=== PATIENT | female | born 1995 ===

== ENCOUNTER 2020-06-22 06:50 | Inpatient (IN) | payer MEDICAID ==
[2020-06-22] VITALS (17 sets, daily range): BP systolic 93–125; BP diastolic 50–79
[~2020-06-22] VITALS: Ht 162.6 cm; Wt 54.4 kg
[2020-06-22] MEDS ORDERED: LIDOcaine 2% 10ml TOPICAL JELLY (Urojet) TP ONE (07:15)
[2020-06-22] MEDS ORDERED: acetaminophen 325mg tablet PO PRN ×2 (07:15)
[2020-06-22] MEDS ORDERED: ipratropium/albuterol 3ml nebule NEB PRN (07:15)
[2020-06-22] MEDS: normal saline 1000ml 1,000 ML IV SCH ×2 (07:15→19:16)
[2020-06-22] MEDS ORDERED: midazolam 100mg in NS 100ml 100 ML IV PRN (07:15)
[2020-06-22] MEDS ORDERED: midazolam 2 mg/2 ml injection IV ONE (07:15)
[2020-06-22] MEDS ORDERED: fentaNYL/PF 50MCG/1 ML 2ML syringe IV PRN (07:15)
[2020-06-22] MEDS ORDERED: morphine 4 MG/ML inj SYRINge IV PRN (07:15)
[2020-06-22] MEDS: docusate sod 100mg capsule PO SCH ×2 (08:00→19:40)
[2020-06-22 08:03] LABS: CLARITY,URINE CLOUDY (Clear); COLOR,URINE YELLOW (Yellow); GLUCOSE, URINE NEGATIVE (Neg); KETONES,URINE NEGATIVE (Neg); LEUKOCYTE ESTERASE ,URINE LARGE (Neg); NITRITES, URINE NEGATIVE (Neg); OCCULT BLOOD,URINE MODERATE (Neg); PH,URINE 6.5 (4.8-8.0); PROTEIN,URINE 30 mg/dl (Neg); UROBILINOGEN,URINE 0.2 E.U/dL (0.2-1.0)
[2020-06-22 08:07] LABS: UA COLLECTION TYPE FOLEY CATH
[2020-06-22 08:09] LABS: BACTERIA,URINE 4+ /HPF (Neg); CAL OXALATE CRYSTALS 1+ /HPF (NEGATIVE); MUCUS STRANDS MODERATE /LPF (Neg); RENAL CELLS, URINE FEW /HPF; SQUAMOUS EPITHELIAL CELL,UR MODERATE /LPF (FEW); TRANSITIONAL EPI CELLS,URINE FEW /HPF; URIC ACID CRYSTALS 1+ /HPF (NEGATIVE)
[2020-06-22 08:10] LABS: YEAST FEW /HPF (NEGATIVE)
[2020-06-22 09:20] LABS: ABG BASE EXCESS -4.6 mmol/L (-2.0-2.0); ABG HCO3 19.9 mmol/L (22.0-26.0); ABG OXYGEN SATURATION 95.9 % (94-97); FCOHb 0.3 % (0.0-3.9); FMetHb 0.2 % (0.0-1.5); FO2Hb 95.4 % (94-97); PATIENT TEMPERATURE 35.8; RESPIRATORY RATE 14 b/min; TIDAL VOLUME 400 mL; TOTAL HEMOGLOBIN 9.7 G/dl (12.0-16.0)
[2020-06-22] MEDS ORDERED: heparin 1,000 units/ml 10ml inj HE ONE ×2 (09:40)
[2020-06-22] MEDS: FENTANYL-0.9 % NACL/PF 100 ML IV PRN ×2 (09:49→17:49)
[2020-06-22 10:16] LABS: BASOPHILS % (AUTO) 0.4 % (0-1); EOSINOPHILS % (AUTO) 0.3 % (0-6); HEMATOCRIT 23.6 % (35.0-45.0); HEMOGLOBIN 7.9 g/dl (12.0-16.0); LYMPHOCYTES # (AUTO) 1.4 X10'3 (1.1-4.8); MEAN CORPUSCULAR HEMOGLOBIN 29.7 PG (27.0-31.0); MEAN CORPUSCULAR HGB CONC 33.5 g/dL (33.0-36.5); MEAN CORPUSCULAR VOLUME 88.5 FL (78-98); MEAN PLATELET VOLUME 8.3 FL (7.4-10.4); MONOCYTES # (AUTO) 0.1 X10'3 (0-0.9); MONOCYTES % (AUTO) 1.2 % (2-12); NEUTROPHILS # (AUTO) 8.9 X10'3 (1.8-7.7); NEUTROPHILS % (AUTO) 85.1 % (42-75); PLATELET COUNT 236 X10'3 (140-440); RED BLOOD COUNT 2.66 X10'6 (4.20-5.60); RED CELL DISTRIBUTION WIDTH 16.4 % (11.5-14.5); WHITE BLOOD COUNT 10.5 X10'3 (4.5-11.0)
[2020-06-22 10:29] LABS: ALANINE AMINOTRANSFERASE 39 U/L (12-78); ALBUMIN 1.7 G/DL (3.4-5.0); ALBUMIN/GLOBULIN RATIO 0.4 (1.1-1.5); ALKALINE PHOSPHATASE 78 IU/L (46-116); ANION GAP 13 (8-16); ASPARTATE AMINO TRANSFERASE 33 U/L (10-37); BILIRUBIN,TOTAL 0.7 MG/DL (0.1-1.0); BLOOD UREA NITROGEN 72 MG/DL (7-18); BUN/CREATININE RATIO 44.2 (6.6-38.0); CALCIUM 8.1 MG/DL (8.5-10.1); CHLORIDE 106 MMOL/L (99-107); CREATININE 1.63 MG/DL (0.40-0.90); GLUCOSE 100 MG/DL (70-104); MAGNESIUM 2.1 MG/DL (1.5-2.4); PHOSPHORUS 4.9 MG/DL (2.3-4.5); POTASSIUM 3.5 MMOL/L (3.5-5.1); SODIUM 140 MMOL/L (135-145); TOTAL CARBON DIOXIDE 20.7 MMOL/L (24-32); TOTAL PROTEIN 6.4 G/DL (6.4-8.2); eGFR 38 ML/MIN
[2020-06-22 10:38] LABS: ANISOCYTOSIS 1+; PLATELET ESTIMATE NORMAL; TOTAL CELLS COUNTED 100
[2020-06-22] MEDS: famotidine/PF 10 mg/ml inj IV SCH ×2 (10:48→20:38)
[2020-06-22] MEDS: heparin, porcine 5000 units/ml vial SQ SCH ×2 (10:50→20:39)
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
[2020-06-22] MEDS: NORepinephrine 8mg/ 250ml NS 250 ML IV PRN ×2 (11:33→20:38)
[2020-06-22] MEDS: ipratropium/albuterol 3ml nebule NEB SCH ×4 (11:40→22:44)
[2020-06-22 11:50] LABS: TOTAL PROTEIN,URINE RANDOM 242.7 MG/DL
[2020-06-22 12:09] LABS: CLARITY,URINE CLOUDY (Clear); COLOR,URINE YELLOW (Yellow); GLUCOSE, URINE NEGATIVE (Neg); KETONES,URINE NEGATIVE (Neg); LEUKOCYTE ESTERASE ,URINE MODERATE (Neg); NITRITES, URINE NEGATIVE (Neg); OCCULT BLOOD,URINE LARGE (Neg); PH,URINE 6.5 (4.8-8.0); PROTEIN,URINE 100 mg/dl (Neg)
[2020-06-22 12:16] LABS: UA COLLECTION TYPE FOLEY CATH
[2020-06-22 12:18] LABS: MUCUS STRANDS FEW /LPF (Neg); SQUAMOUS EPITHELIAL CELL,UR NONE SEEN /LPF (FEW)
[2020-06-22 12:19] LABS: BACTERIA,URINE 4+ /HPF (Neg); RBC,URINE 50-100 /HPF (0-2)
[2020-06-22 12:48] LABS: UA EOSINOPHILS RARE EOS /HPF
[2020-06-22] MEDS ORDERED: MULT-687 PO (13:38)
[2020-06-22] MEDS ORDERED: MIDO5TAB4 PO (13:38)
[2020-06-22] MEDS ORDERED: THIA50TA10 PO (13:38)
[2020-06-22] MEDS ORDERED: GABA-530 PO (13:41)
[2020-06-22] MEDS ORDERED: MYC15CR TOP (13:41)
[2020-06-22] MEDS ORDERED: MELA1TAB28 PO (13:41)
[2020-06-22] MEDS ORDERED: FOLI0.4T14 PO (13:41)
[2020-06-22] MEDS ORDERED: FAMO20TA8 PO (13:42)
[2020-06-22] MEDS ORDERED: BACL-11 PO (13:42)
[2020-06-22] MEDS ORDERED: CHLO118M PO (13:43)
[2020-06-22] MEDS ORDERED: ALBU18HF2 IH (13:46)
[2020-06-22] MEDS ORDERED: ATRIN IH (13:46)
[2020-06-22] MEDS: sennosides/docusate sodium tablet PO SCH (19:40)
[2020-06-23] VITALS (25 sets, daily range): BP systolic 97–122; BP diastolic 51–80
[2020-06-23 03:52] LABS: HEMOGLOBIN 7.6 g/dl (12.0-16.0)
[2020-06-23 03:54] LABS: MEAN CORPUSCULAR HEMOGLOBIN 28.9 PG (27.0-31.0); MEAN CORPUSCULAR VOLUME 87.7 FL (78-98); PLATELET COUNT 178 X10'3 (140-440); RED BLOOD COUNT 2.63 X10'6 (4.20-5.60); RED CELL DISTRIBUTION WIDTH 16.6 % (11.5-14.5); WHITE BLOOD COUNT 9.5 X10'3 (4.5-11.0)
[2020-06-23] MEDS: ipratropium/albuterol 3ml nebule NEB SCH ×6 (03:54→22:37)
--- NOTE | 2020-06-23 04:00 | NUR ---
CLEMENTE Note -called July REY Kevin with critical K of 2.5. Orders received
[2020-06-23 04:05] LABS: ALANINE AMINOTRANSFERASE 37 U/L (12-78); ALBUMIN 1.7 G/DL (3.4-5.0); ALBUMIN/GLOBULIN RATIO 0.4 (1.1-1.5); ALKALINE PHOSPHATASE 81 IU/L (46-116); ANION GAP 13 (8-16); ASPARTATE AMINO TRANSFERASE 29 U/L (10-37); BILIRUBIN,TOTAL 0.5 MG/DL (0.1-1.0); BLOOD UREA NITROGEN 48 MG/DL (7-18); BUN/CREATININE RATIO 70.6 (6.6-38.0); CALCIUM 8.4 MG/DL (8.5-10.1); CHLORIDE 112 MMOL/L (99-107); CREATININE 0.68 MG/DL (0.40-0.90); GLUCOSE 97 MG/DL (70-104); PHOSPHORUS 3.4 MG/DL (2.3-4.5); SODIUM 148 MMOL/L (135-145); TOTAL PROTEIN 6.2 G/DL (6.4-8.2); eGFR > 90 ML/MIN
[2020-06-23 04:13] LABS: POTASSIUM 2.5 MMOL/L (3.5-5.1)
[2020-06-23] MEDS ORDERED: potassium Cl 20 mEq/100mL bag IV ONE (04:35)
[2020-06-23 04:41] LABS: ABG BASE EXCESS -3.5 mmol/L (-2.0-2.0); ABG HCO3 21.4 mmol/L (22.0-26.0); ABG OXYGEN SATURATION 98.1 % (94-97); ABG PCO2 (T) 35.1 mmHg (32.0-45.0); ABG PO2 (T) 106.1 mmHg (75.0-100.0); FCOHb 0.3 % (0.0-3.9); FMetHb 0.3 % (0.0-1.5); FO2Hb 97.5 % (94-97); PATIENT TEMPERATURE 35.4; PEEP 5 cm H2O; RESPIRATORY RATE 14 b/min; TIDAL VOLUME 400 mL; TOTAL HEMOGLOBIN 8.4 G/dl (12.0-16.0)
--- NOTE | 2020-06-23 06:30 | NUR ---
Patient in room ICU 2043. I have received report from [facility] and had the opportunity to ask questions and assume patient care.
[2020-06-23 07:27] LABS: TOTAL CELLS COUNTED 100
[2020-06-23 07:28] LABS: ANISOCYTOSIS 1+; PLATELET ESTIMATE NORMAL; POLYCHROMASIA 1+; TOXIC GRANULATION 1+
[2020-06-23] MEDS: docusate sod 100mg capsule PO SCH ×2 (08:00→20:00)
[2020-06-23] MEDS: famotidine/PF 10 mg/ml inj IV SCH ×2 (08:29→20:53)
[2020-06-23] MEDS: heparin, porcine 5000 units/ml vial SQ SCH ×2 (08:31→20:52)
[2020-06-23] MEDS: mineral oil/petrolatum ophthal oint EACHEYE SCH ×3 (08:33→20:54)
[2020-06-23] MEDS: normal saline 1000ml 1,000 ML IV SCH (08:43)
[2020-06-23] MEDS ORDERED: potassium CL 10mEq/100ml bag 100 ML IV PRN (11:00)
[2020-06-23] MEDS: K, MAG and/or Phos replacement - Verify level? MC SCH (11:33)
[2020-06-23] MEDS: potassium Cl 20mEq/100mL bag 100 ML IV PRN ×3 (11:33→13:56)
[2020-06-23] MEDS: NORepinephrine 8mg/ 250ml NS 250 ML IV PRN (15:08)
--- NOTE | 2020-06-23 19:00 | NUR ---
REVIEWED WITH EMANUEL GONSALES NP RE: BP/LEVOPHED, ALBUMIN LEVEL IS 1.7 AND H/H 7.6/23. NO NEW ORDERS REGARDING THESE . QUESTIONED WHETHER TO GIVE COLACE AND SENNA THEY HAVE BEEN HELD PREVIOUSLY. PER EMANUEL, BOOK SALESMAN - OK TO GIVE. PATIENT HAS HAS BOWEL MOVEMENTS THE PREVIOUS SHIFT ALSO PER REPORT. REMINDED REY CASTELLANOS PATIENT IS ON NO ABX AT THIS TIME - REVIEWED LATEST MICRO RESULTS WITH HER. NO NEW ORDERS. FROM REPORT AT SHIFT CHANGE, CLEMENTE MARTINEZ REPORTED TO ME TO DC GERALD CATHETER HOWEVER THERE IS NO ORDER. DR. RODRIGUEZ MENTIONED IN HIS PROGRESS NOTES THAT HE WOULD DC THIS CATHETER BUT AGAIN - THERE IS NO ORDER. CLARIFIED WITH REY CASTELLANOS WHETHER THIS LINE IS TO BE DC'D. PER REY CASTELLANOS WE WILL WAIT TO CLARIFY ON ROUNDS IN AM. SHE WILL ALSO CLARIFY ABX STATUS IN AM WELL.
--- NOTE | 2020-06-23 19:30 | NUR ---
UPON ASSESSMENT - PATIENTS ABDOMEN NOTED TO BE QUITE DISTENDED AND SLIGHTLY FIRM. PEG TUBE WAS CLAMPED FOR MEDS GIVEN PREVIOUS SHIFT. PEG SITE LEAKING MODERATE AMOUNT BROWN BILIOUS IN BED. NEW TUBING AND NEW CANISTER PLACED. OLD CANISTER HAD MARKING THAT SHOWED AT 350 ML. PRIOR TO TOSSING CANISTER - 100 MORE ML BROWN BILIOUS WAS IN CANISTER. NOTED THAT DAYSHIFT DID NOT TAKE CREDIT FOR THIS 100 ML SO I DID ON MY SHIFT PRIOR TO CHANGING TO A NEW CANISTER. # 22 PIV TO LEFT WRIST D/C'D. PUFFY AND DIFFICULT TO FLUSH. NEURO - NOTED LEFT PUPIL 1 MM AND RIGHT PUPIL 1.5 MM. BOTH REACTIVE TO LIGHT. PATIENT OPENS EYES TO NAME BUT DOES NOT MAKE EYE CONTACT. DOES NOT STICK TONGUE OUT ON COMMAND. DOES NOT TRACK. VERSED GTT 1.5 MG/HR, FENTANYL 75 UG/HR. PATIENT IS IN NO DISTRESS AND NO S/SX PAIN. COURSE BREATH SOUNDS B/L, SXN SM [place]/WHITE. VSS, AFEBRILE, U/O MARGINAL VICKIE. RIGHT FEMORAL GERALD - CDI - DRESSING NOT DATED, LEFT FEMORAL A-LINE. DRESSING CDI, RIGHT SC QLC - CDI, Addendum: 06/24/20 at 0108 by Bob Obrien RN AFTER DISCUSSING WITH JULY ASH CONVEYOR OPERATOR REGARDING THE DISTENDED ABDOMEN AND LEAKING PEG SITE - I DID NOT GIVE THE PT SENNA OR COLACE.
[2020-06-23] MEDS: sennosides/docusate sodium tablet PO SCH ×2 (20:52→20:55)
--- NOTE | 2020-06-23 21:00 | NUR ---
FULL BED AND BATH. LOTION APPLIES ALL OVER BODY. WITH THE HELP OF 2 RN'S, (FLUTE POLISHER TO TURN, RESOURCE RN TO STABILIZE NECK WHILE PHILI COLLAR WAS REMOVED) I ASSESSED TOTAL NECK SKIN/BACK OF HEAD. PATIENT HAD A PACKED WOUND AT C-4 SITE ON POSTERIOR NECK - DRESSING WAS DATED 06/20. I REMOVED THE PACKING AND APPLIED NEW NS W->D WITH DSD COVERING. WOUND WAS PROBABLY 1/4 IN OR SO DEEP. I DID NOT HAVE A MEASURING DEVICE AT THE TIME. THIS WOUND WAS NOT REPORTED IN REPORT SO I WAS UNPREPARED WHILE REMOVING THE COLLAR. A SCAR TO FRONT RIGHT NECK NOTED BUT NOT OPEN. OCCIPITAL AREA WITH AREA OF SHAVED HAIR WITH A SMALL SCAR AT THE CENTER. IT WAS NOT OPEN. TOTAL NECK CLEANED FRONT AND BACK - COLLAR CLEANED AND REPLACED. DTI TO LEFT FLANK - OFFLY SHAPED - OPTIFOAM APPLIED. DIME SIZED SKIN TEAR TO LEFT LOWER BUTTOCK FOLD (INTO THE THIGH), OPTIFOAM APPLIED. OPTIFOAM ON SACRUM - REMOVED TO ASSESS - TINY OPEN AREA AT DISTAL TAILBONE. SMALL AREA MAY BE DTI TO RIGHT OF SACRUM. PATIENT IS TURNED LEFT SIDE OR RIGHT SIDE. NEVER ON COCCYX. I WILL REQUEST WOUND CARE TO ASSESS FOR PERHAPS A SPECIALTY BED - CURRENTLY ON AIR EQUALIZING MATTRESS. LOTION APPLIED TO ENTIRE BODY.. HEELS AND ARMS ON PILLOWS. PATIENT IS ALWAYS CHECKED FOR ANY PRESSURE ISSUES RELATED TO MONITOR WIRES/GALDAMEZ/SCD/VENT IV LINES ETC. EXTREMITIES ALWAYS MADE SURE TO BE POSITIONED PROPERLY ESPECIALLY RECHECKING AFTER TURNS PATIENT IS A NEW QUADRIPLEGIC AND UNABLE TO SENSE PRESSURE/POSITIONING ISSUES.
[2020-06-24] VITALS (24 sets, daily range): BP systolic 95–116; BP diastolic 51–66
[2020-06-24] MEDS: normal saline 1000ml 1,000 ML IV SCH ×2 (00:27→12:40)
--- NOTE | 2020-06-24 02:14 | NUR ---
I HAVE SENT A REQUEST TO WOUND CARE TO PLEASE EVALUATE THIS PATIENT FOR A SPECIALTY BED AND ALSO TO ASSESS THE PACKED WOUND TO POSTERIOR NECK THERE ARE NO CURRENT ORDERS FOR THIS DRESSING CHANGE. STATED EARLIER - I PLACED NEW NS W->D UNTIL FURTHER INSTRXN
[2020-06-24] MEDS: mineral oil/petrolatum ophthal oint EACHEYE SCH ×4 (02:20→19:33)
[2020-06-24] MEDS: ipratropium/albuterol 3ml nebule NEB SCH ×6 (02:46→22:58)
[2020-06-24 03:35] LABS: ALANINE AMINOTRANSFERASE 27 U/L (12-78); ALBUMIN 1.5 G/DL (3.4-5.0); ALBUMIN/GLOBULIN RATIO 0.3 (1.1-1.5); ALKALINE PHOSPHATASE 78 IU/L (46-116); ANION GAP 12 (8-16); ASPARTATE AMINO TRANSFERASE 18 U/L (10-37); BILIRUBIN,TOTAL 0.6 MG/DL (0.1-1.0); BLOOD UREA NITROGEN 33 MG/DL (7-18); BUN/CREATININE RATIO 73.3 (6.6-38.0); CALCIUM 8.8 MG/DL (8.5-10.1); CHLORIDE 118 MMOL/L (99-107); CREATININE 0.45 MG/DL (0.40-0.90); GLUCOSE 84 MG/DL (70-104); MAGNESIUM 1.8 MG/DL (1.5-2.4); PHOSPHORUS 2.4 MG/DL (2.3-4.5); POTASSIUM 3.5 MMOL/L (3.5-5.1); SODIUM 152 MMOL/L (135-145); TOTAL CARBON DIOXIDE 22.2 MMOL/L (24-32); TOTAL PROTEIN 5.8 G/DL (6.4-8.2); eGFR > 90 ML/MIN
[2020-06-24 03:35] LABS: ABG HCO3 20.4 mmol/L (22.0-26.0); ABG OXYGEN SATURATION 93.8 % (94-97); ABG PCO2 (T) 34.6 mmHg (32.0-45.0); ABG PO2 (T) 72.8 mmHg (75.0-100.0); FCOHb 0.2 % (0.0-3.9); FMetHb 0.1 % (0.0-1.5); FO2Hb 93.5 % (94-97); PATIENT TEMPERATURE 37.2; PEEP 5 cm H2O; RESPIRATORY RATE 14 b/min; TIDAL VOLUME 400 mL; TOTAL HEMOGLOBIN 8.7 G/dl (12.0-16.0)
[2020-06-24 03:43] LABS: BASOPHILS % (AUTO) 0.3 % (0-1); EOSINOPHILS # (AUTO) 0.2 X10'3 (0-0.9); EOSINOPHILS % (AUTO) 1.3 % (0-6); HEMATOCRIT 24.2 % (35.0-45.0); HEMOGLOBIN 7.9 g/dl (12.0-16.0); LYMPHOCYTES # (AUTO) 1.4 X10'3 (1.1-4.8); MEAN CORPUSCULAR HEMOGLOBIN 29.2 PG (27.0-31.0); MEAN CORPUSCULAR HGB CONC 32.6 g/dL (33.0-36.5); MEAN CORPUSCULAR VOLUME 89.5 FL (78-98); MEAN PLATELET VOLUME 8.8 FL (7.4-10.4); MONOCYTES # (AUTO) 0.2 X10'3 (0-0.9); MONOCYTES % (AUTO) 1.3 % (2-12); NEUTROPHILS # (AUTO) 12.2 X10'3 (1.8-7.7); NEUTROPHILS % (AUTO) 87.1 % (42-75); PLATELET COUNT 181 X10'3 (140-440)
--- NOTE | 2020-06-24 04:36 | NUR ---
ABDOMEN APPEARS MORE DISTENDED THAN BEGINNING OF SHIFT. PEG HAS PUT OUT 100 ML BILIOUS. NO FURTHER LEAKING FROM PEG SITE. CALL TO JULY SHAREPOINT ANALYST TO UPDATE. DEYANIRA ADDED TO AM CXR Addendum: 06/24/20 at 0440 by Bob Obrien RN WANTED TO ADD - 2330 DECREASED VERSED FROM 1.5 MG/HR TO 0.5 MG/HR. RT ASSESSMENT SHOWS INCREASED RR AND DECREASED TV. PATIENT CURRENTLY MOVES MOUTH BUT IS UNABLE TO OPEN EYES (HALF OPEN/HALF SHUT) NO COMMANDS NO EYES CONTACT. VERSED INCREASED TO 1.0 MG /HR
[2020-06-24 05:02] LABS: PLATELET ESTIMATE NORMAL; TOTAL CELLS COUNTED 100
[2020-06-24 05:03] LABS: ANISOCYTOSIS 1+
--- NOTE | 2020-06-24 06:00 | NUR ---
Patient in room ICU 2043. I have received report from Bob CORNEJO and had the opportunity to ask questions and assume patient care.
--- NOTE | 2020-06-24 06:30 | NUR ---
Patient in room ICU 2043. I have received report from Bob CORNEJO and had the opportunity to ask questions and assume patient care.
[2020-06-24] MEDS: docusate sod 100mg capsule PO SCH (08:00)
[2020-06-24] MEDS: K, MAG and/or Phos replacement - Verify level? MC SCH (08:00)
[2020-06-24] MEDS: heparin, porcine 5000 units/ml vial SQ SCH ×2 (08:48→19:34)
[2020-06-24] MEDS: famotidine/PF 10 mg/ml inj IV SCH ×2 (08:48→19:34)
[2020-06-24] MEDS ORDERED: pneumococcal 23-VAL P-sac vacc 25 mcg/0.5ml vial IMVAC ONE (09:45)
[2020-06-24] MEDS ORDERED: FLU VACC QS2020-21(6MOS UP)/PF 60 MCG/0.5 ML SYRINGE IMVAC ONE (09:45)
[2020-06-24] MEDS ORDERED: normal saline 1000ml 1,000 ML IV ONE (10:25)
--- NOTE | 2020-06-24 10:27 | NUR ---
rounds note Per Dr. Marshall d/c femoral raulito, start levaquin 750mg, start tube feed, give 1l bolus NS and wean levophed as tolerated
[2020-06-24] MEDS ORDERED: ipratropium 0.5 MG/2.5ML nebule NEB PRN (11:05)
[2020-06-24] MEDS ORDERED: ALBUTEROL INHALER 1 PUFF/90 MCG INHALER IH PRN (11:05)
--- NOTE | 2020-06-24 11:25 | NUR ---
TF/Roland Consults: PEG TF to start today per . Roland 8 w/ skin intact. LBM 06/23. EN recs below; will monitor for tolerance and adjustments as medically indicated. Recommendations: 1) Continuous PEG TF using Vital AF at 60 mL/hr goal. To provide; 1440ml volume, 1166ml free water, 1728 kcals, and 108g protein. 2) water flush 200ml Q4H 3) prealbumin q Wednesday/; daily weights 4) Routine Bowel care; consider opioid antagonist per MD 5) Once extubated and sepsis resolved, recommend continuous Jevity 1.2 with goal rate of 55 mL/hr with 85 mL water flush Q4H via G tube Addendum: 06/24/20 at [address] Amended: Links added.
[2020-06-24] MEDS ORDERED: albuterol 2.5 MG/3 ML nebule NEB PRN (11:30)
[2020-06-24] MEDS: levoFLOXACIN-Levaquin 750MG/D5 150 ML IV SCH (11:55)
[2020-06-24] MEDS: FENTANYL-0.9 % NACL/PF 100 ML IV PRN (11:56)
[2020-06-24] MEDS: gabapentin 100mg capsule PO SCH ×2 (12:40→21:49)
[2020-06-24] MEDS ORDERED: acetaminophen 325mg/10.15ml oral unit dose solution PEG PRN ×2 (12:44→12:45)
[2020-06-24] MEDS: baclofen 10mg tablet PEG SCH ×2 (13:00→21:47)
[2020-06-24] MEDS ORDERED: baclofen 10mg tablet PO SCH (13:00)
[2020-06-24 13:35] LABS: PREALBUMIN 6.9 MG/DL (19-36)
[2020-06-24] MEDS: NORepinephrine 8mg/ 250ml NS 250 ML IV PRN (13:50)
[2020-06-24] MEDS: midodrine 5mg tablet PEG SCH (16:48)
[2020-06-24] MEDS: chlorhexidine gluconate 15ml Cup****oral rinse MM SCH (16:48)
--- NOTE | 2020-06-24 17:13 | NUR ---
[facility] line information ref [id number] lot [id number] exp 2021-04-24
--- NOTE | 2020-06-24 18:11 | NUR ---
Problems reprioritized. Patient report given, questions answered & plan of care reviewed with Bob CORNEJO.
--- NOTE | 2020-06-24 19:00 | NUR ---
I SPOKE TO EMANUEL GONSALES NP ABOUT THE RIGHT SC CENTRAL LINE RT TO THE NEW -PICC. ASSUMING TO D/C R SC CENTRAL LINE SINCE NEW LINE IS PLACED HOWEVER THERE IS NO OFFICIAL ORDER TO D/C THIS CATHETER . PER JULY, LEAVE LINE IN PLACE UNTIL CLARIFIED IN AM
[2020-06-24] MEDS: NYSTATIN CREAM - 30GM TUBE TP SCH (19:34)
[2020-06-24] MEDS: docusate sodium 100mg/10ml UD cup PEG SCH (19:34)
[2020-06-24] MEDS ORDERED: famotidine 20mg tablet PO SCH (20:00)
[2020-06-24] MEDS: sennosides/docusate sodium tablet PEG SCH (21:48)
[2020-06-24] MEDS: Melatonin 3mg tablet PO SCH (21:48)
[2020-06-25] VITALS (24 sets, daily range): BP systolic 68–153; BP diastolic 36–90
[2020-06-25] MEDS: mineral oil/petrolatum ophthal oint EACHEYE SCH ×4 (01:51→20:40)
[2020-06-25] MEDS: normal saline 1000ml 1,000 ML IV SCH ×3 (01:51→16:08)
[2020-06-25] MEDS: midodrine 5mg tablet PEG SCH ×4 (01:54→23:28)
[2020-06-25] MEDS: chlorhexidine gluconate 15ml Cup****oral rinse MM SCH ×4 (01:54→23:28)
[2020-06-25 02:52] LABS: BASOPHILS % (AUTO) 0.1 % (0-1); EOSINOPHILS # (AUTO) 0.1 X10'3 (0-0.9); EOSINOPHILS % (AUTO) 0.8 % (0-6); HEMATOCRIT 23.4 % (35.0-45.0); HEMOGLOBIN 7.5 g/dl (12.0-16.0); LYMPHOCYTES # (AUTO) 1.8 X10'3 (1.1-4.8); LYMPHOCYTES % (AUTO) 14.7 % (21-51); MEAN CORPUSCULAR HEMOGLOBIN 28.7 PG (27.0-31.0); MEAN CORPUSCULAR HGB CONC 32.1 g/dL (33.0-36.5); MEAN CORPUSCULAR VOLUME 89.6 FL (78-98); MEAN PLATELET VOLUME 8.2 FL (7.4-10.4); MONOCYTES # (AUTO) 0.4 X10'3 (0-0.9); MONOCYTES % (AUTO) 2.8 % (2-12); NEUTROPHILS # (AUTO) 10.2 X10'3 (1.8-7.7); NEUTROPHILS % (AUTO) 81.6 % (42-75); PLATELET COUNT 173 X10'3 (140-440); RED BLOOD COUNT 2.61 X10'6 (4.20-5.60); RED CELL DISTRIBUTION WIDTH 16.9 % (11.5-14.5); WHITE BLOOD COUNT 12.5 X10'3 (4.5-11.0)
[2020-06-25] MEDS: ipratropium/albuterol 3ml nebule NEB SCH ×6 (02:54→22:35)
[2020-06-25 03:02] LABS: ALANINE AMINOTRANSFERASE 24 U/L (12-78); ALBUMIN 1.4 G/DL (3.4-5.0); ALBUMIN/GLOBULIN RATIO 0.3 (1.1-1.5); ALKALINE PHOSPHATASE 67 IU/L (46-116); ANION GAP 10 (8-16); ASPARTATE AMINO TRANSFERASE 12 U/L (10-37); BLOOD UREA NITROGEN 28 MG/DL (7-18); BUN/CREATININE RATIO 58.3 (6.6-38.0); CALCIUM 8.9 MG/DL (8.5-10.1); CHLORIDE 119 MMOL/L (99-107); CREATININE 0.48 MG/DL (0.40-0.90); GLUCOSE 92 MG/DL (70-104); MAGNESIUM 1.5 MG/DL (1.5-2.4); PHOSPHORUS 2.8 MG/DL (2.3-4.5); POTASSIUM 3.4 MMOL/L (3.5-5.1); SODIUM 149 MMOL/L (135-145); TOTAL CARBON DIOXIDE 20.1 MMOL/L (24-32); TOTAL PROTEIN 5.5 G/DL (6.4-8.2); eGFR > 90 ML/MIN
[2020-06-25 03:10] LABS: ABG BASE EXCESS -6.2 mmol/L (-2.0-2.0); ABG OXYGEN SATURATION 96.3 % (94-97); FCOHb 0.4 % (0.0-3.9); FMetHb 0.3 % (0.0-1.5); FO2Hb 95.6 % (94-97); PATIENT TEMPERATURE 38.2; PEEP 5 cm H2O; RESPIRATORY RATE 14 b/min; TIDAL VOLUME 400 mL; TOTAL HEMOGLOBIN 8.4 G/dl (12.0-16.0)
[2020-06-25 03:11] LABS: TOTAL CELLS COUNTED 100
[2020-06-25 03:12] LABS: ANISOCYTOSIS 1+; PLATELET ESTIMATE NORMAL
[2020-06-25 03:19] LABS: BILIRUBIN,TOTAL 0.9 MG/DL (0.1-1.0)
--- NOTE | 2020-06-25 03:20 | NUR ---
turned with full bed and bath. trach care completed with rt while rn held neck. then rn holds neck while i changed the posterior neck dressing. no complications cleaned guthrie brace and neck. occipital area unchanged - not open- scar like, replaced philli collar. new optifoam dressing to sacrum and left gluteal fold.
--- NOTE | 2020-06-25 06:00 | NUR ---
Patient in room ICU 2043. I have received report from Bob CORNEJO and had the opportunity to ask questions and assume patient care.
--- NOTE | 2020-06-25 07:09 | NUR ---
Patient in room ICU 2043. I have received report from Bob CORNEJO and had the opportunity to ask questions and assume patient care.
[2020-06-25] MEDS: docusate sodium 100mg/10ml UD cup PEG SCH ×2 (08:00→20:00)
[2020-06-25] MEDS: MULTIVIT-MIN/FERROUS GLUCONATE 9 MG/15 ML LIQUID PEG SCH (08:00)
[2020-06-25] MEDS: baclofen 10mg tablet PEG SCH ×3 (08:00→20:41)
[2020-06-25] MEDS: folic acid 1mg tablet PEG SCH (08:00)
[2020-06-25] MEDS: thiamine 100mg tablet PEG SCH (08:00)
[2020-06-25] MEDS: gabapentin 100mg capsule PO SCH ×3 (08:00→20:42)
[2020-06-25] MEDS: K, MAG and/or Phos replacement - Verify level? MC SCH (08:00)
[2020-06-25] MEDS: methylnaltrexone br 12mg/0.6ml inj***SubQ only SQ SCH (08:33)
[2020-06-25] MEDS: levoFLOXACIN-Levaquin 750MG/D5 150 ML IV SCH (08:33)
[2020-06-25] MEDS: famotidine/PF 10 mg/ml inj IV SCH ×2 (08:33→20:40)
[2020-06-25] MEDS: heparin, porcine 5000 units/ml vial SQ SCH ×2 (08:34→20:40)
[2020-06-25] MEDS: NYSTATIN CREAM - 30GM TUBE TP SCH ×2 (08:39→20:00)
[2020-06-25] MEDS: diatr meglu/diatrizoate 30ml oral sol.-(3 dose) bottle PO SCH ×3 (09:58→16:11)
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
[2020-06-25] MEDS: potassium Cl 20mEq/100mL bag 100 ML IV PRN ×2 (11:44→16:13)
[2020-06-25] MEDS: FENTANYL-0.9 % NACL/PF 100 ML IV PRN ×2 (11:47→18:26)
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
[2020-06-25] MEDS ORDERED: Dextrose 10%-water IV solution 1,000 ML IV PRN (15:35)
[2020-06-25] MEDS ORDERED: iohexol 300mg/ml 100ml inj. ONE (16:32)
--- NOTE | 2020-06-25 18:18 | NUR ---
Problems reprioritized. Patient report given, questions answered & plan of care reviewed with Bob CORNEJO.
[2020-06-25] MEDS: NORepinephrine 8mg/ 250ml NS 250 ML IV PRN (18:22)
[2020-06-25] MEDS ORDERED: fat emulsion 20% IV 100 ML, MVI, adult No.4 with vit. K 10 ML, Trace element-5 inj. 1 M... IV SCH ×4 (19:00)
[2020-06-25] MEDS: lactobacillus rhamnosus 10,000 MMU CELLS/CAPSULE PO SCH (20:00)
--- NOTE | 2020-06-25 20:00 | NUR ---
PE MEDS WERE HELD DUE TO GI PROBLEMS THIS AFTERNOON, TF STOPPED, I PLACED PEG TUBE TO LWSXN - 550 ML BROWN BILIOUS OUT. REMAINED TO LWSXN FOR SAFETY. NEW CANISTER CONTENTS STARTS NOW. ABDOMEN IS TAUT AND VERY DISTENDED. WHEN INITIALLY ASSESSING PATIENT , SHE SEEMS TO BLINK TWICE WHEN I ASKED AND SORT OF TRIED TO STICK TONGUE OUT ON COMMAND. AFTER THIS , NO FURTHER COMMANDS- PATIENT COMFORTABLY SLEEPS, OPENS EYES VERY GROGGILLY TO NAME CALL. NO RESP DISTRESS, PHILLI COLLAR IN PLACE. TRACH SITE APPEARS CDI WITH SMALL AMT MUCOUS DRAINAGE AT SITE. TOLERATING VENT SETTINGS, TPN INFUSES AT 30 ML /HR UNTIL 0730 AM 06/26 - THEN TO INCREASE TO 80 ML/HR IF NO S/SX REFEEDING SYNDROME. ALL GTTS VIA AARON PICC. CENTRAL LINE REMAINS IN PLACE. CVP MONITORING ONLY. NO ORDER TO D/C THIS LINE. DRESSING IS CDI. SITE IS UN-REMARKABLE. DRESG CDI. VERY SENSITIVE TO ANY LEVOPHED MANIPULATION (TIME WHEN VTI NEEDS TO BE CHANGED, OFF FOR VERY SHORT TIME (SECONDS) PATIENT DROPS PRESSURE NEARLY INSTANTANEOUSLY TO 60 'S SYSTOLIC. IF DRIP RESTARTED XI - PATIENT RECOVERS WISHING A MINUTE OR SO - OCCASIONALLY NEED TO TITRATE LEVO UP FOR VERY SHORT TIME UNTIL VSS THEN BACK TO ORIGINAL RATE. AFEBRILE, URINE IS CLEAR DARK VICKIE, APPEARS VISCOUS.
[2020-06-25] MEDS: sennosides/docusate sodium tablet PEG SCH (20:41)
[2020-06-25] MEDS: Melatonin 3mg tablet PO SCH (20:42)
--- NOTE | 2020-06-25 22:00 | NUR ---
FULL BED AND BATH COMPLETED. LEFT FEMORAL ALINA DRESSING CHANGED PER PROTOCOL. RIGHT FEMORAL GROIN IS S/C GERALD REMOVAL. DRESSING WAS ALSO SATURATE WITH GI SECRETIONS FROM EARLIER - I REMOVED THIS DRESSING AND LEFT IT OPEN TO AIR - NO COMPLICATIONS. NEW DRESSING TO POSTERIOR HANNAH PER ORDER. PHILI COLLAR WAS REMOVED AND CLEANED. GOOD SKIN CARE AT SITE BENEATH PHILLI COLLAR. NO BREAK DOWN. RN SECURED NECK WHILE COLLAR WAS REMOVED.AND TURNED FOR POSTERIOR DRESSINGS CHANGES. NEW SACRAL OPTIFOAM PLACED. OPTIFOAM TO LEFT GLUTEAL FOLD. NYSTATIN THAT IS ON EMAR IS AN ORDER TRANSCRIBED FROM [employer]. I DO NOT SEE AND ISSUES UNDER LEFT AXILLA WRITTEN IN [facility] MED LIST. I DID NOT APPLY THE NYSTATIN. PATIENT IS NOT FOLLOWING COMMANDS AT THIS TIME. REMAINS QUITE GROGGY-LIKE STATE. TEMP TO 35.6 AFTER BATH - WARM BLANKETS TO BODY AND HEAD. MEDI BOOTS ON B/L PER ORDER
[2020-06-26] VITALS (25 sets, daily range): BP systolic 87–124; BP diastolic 43–80
[2020-06-26] MEDS: mineral oil/petrolatum ophthal oint EACHEYE SCH ×4 (01:38→19:40)
[2020-06-26 02:22] LABS: BASOPHILS % (AUTO) 0.1 % (0-1); EOSINOPHILS # (AUTO) 0.1 X10'3 (0-0.9); EOSINOPHILS % (AUTO) 0.5 % (0-6); HEMATOCRIT 22.8 % (35.0-45.0); HEMOGLOBIN 7.4 g/dl (12.0-16.0); LYMPHOCYTES # (AUTO) 1.6 X10'3 (1.1-4.8); MEAN CORPUSCULAR HGB CONC 32.3 g/dL (33.0-36.5); MEAN PLATELET VOLUME 8.2 FL (7.4-10.4); MONOCYTES # (AUTO) 0.5 X10'3 (0-0.9); MONOCYTES % (AUTO) 3.3 % (2-12); NEUTROPHILS % (AUTO) 85.1 % (42-75); PLATELET COUNT 164 X10'3 (140-440); RED BLOOD COUNT 2.54 X10'6 (4.20-5.60); RED CELL DISTRIBUTION WIDTH 17.6 % (11.5-14.5); WHITE BLOOD COUNT 14.1 X10'3 (4.5-11.0)
[2020-06-26 02:37] LABS: ALANINE AMINOTRANSFERASE 21 U/L (12-78); ALBUMIN 1.3 G/DL (3.4-5.0); ALBUMIN/GLOBULIN RATIO 0.3 (1.1-1.5); ALKALINE PHOSPHATASE 64 IU/L (46-116); ANION GAP 10 (8-16); ASPARTATE AMINO TRANSFERASE 15 U/L (10-37); BILIRUBIN,TOTAL 0.8 MG/DL (0.1-1.0); BLOOD UREA NITROGEN 25 MG/DL (7-18); BUN/CREATININE RATIO 43.9 (6.6-38.0); CALCIUM 9.1 MG/DL (8.5-10.1); CHLORIDE 120 MMOL/L (99-107); CREATININE 0.57 MG/DL (0.40-0.90); GLUCOSE 128 MG/DL (70-104); MAGNESIUM 1.2 MG/DL (1.5-2.4); PHOSPHORUS 2.9 MG/DL (2.3-4.5); POTASSIUM 3.6 MMOL/L (3.5-5.1); SODIUM 151 MMOL/L (135-145); TOTAL CARBON DIOXIDE 21.4 MMOL/L (24-32); TOTAL PROTEIN 5.5 G/DL (6.4-8.2); eGFR > 90 ML/MIN
[2020-06-26 02:55] LABS: ANISOCYTOSIS 1+; PLATELET ESTIMATE NORMAL; TOTAL CELLS COUNTED 100
[2020-06-26] MEDS: ipratropium/albuterol 3ml nebule NEB SCH ×6 (03:05→23:18)
[2020-06-26 03:26] LABS: ABG BASE EXCESS -6.5 mmol/L (-2.0-2.0); ABG HCO3 19.1 mmol/L (22.0-26.0); ABG OXYGEN SATURATION 94.2 % (94-97); ABG PCO2 (T) 37.6 mmHg (32.0-45.0); ABG PO2 (T) 70.4 mmHg (75.0-100.0); FCOHb 0.4 % (0.0-3.9); FMetHb 0.1 % (0.0-1.5); FO2Hb 93.7 % (94-97); PATIENT TEMPERATURE 36.7; PEEP 5 cm H2O; RESPIRATORY RATE 14 b/min; TIDAL VOLUME 400 mL; TOTAL HEMOGLOBIN 7.9 G/dl (12.0-16.0)
[2020-06-26] MEDS: magnesium 2GM in 50ml NS 50 ML IV PRN (03:36)
[2020-06-26] MEDS: normal saline 1000ml 1,000 ML IV SCH (05:23)
--- NOTE | 2020-06-26 07:08 | NUR ---
Patient in room ICU 2043. I have received report from Bob CORNEJO and had the opportunity to ask questions and assume patient care.
[2020-06-26] MEDS: midodrine 5mg tablet PEG SCH (08:00)
[2020-06-26] MEDS: K, MAG and/or Phos replacement - Verify level? MC SCH (08:00)
[2020-06-26] MEDS: folic acid 1mg tablet PEG SCH (08:00)
[2020-06-26] MEDS: thiamine 100mg tablet PEG SCH (08:00)
[2020-06-26] MEDS: baclofen 10mg tablet PEG SCH (08:00)
[2020-06-26] MEDS: lactobacillus rhamnosus 10,000 MMU CELLS/CAPSULE PO SCH (08:00)
[2020-06-26] MEDS: docusate sodium 100mg/10ml UD cup PEG SCH (08:00)
[2020-06-26] MEDS: MULTIVIT-MIN/FERROUS GLUCONATE 9 MG/15 ML LIQUID PEG SCH (08:00)
[2020-06-26] MEDS: gabapentin 100mg capsule PO SCH (08:00)
[2020-06-26] MEDS: famotidine/PF 10 mg/ml inj IV SCH ×2 (08:22→19:40)
[2020-06-26] MEDS: chlorhexidine gluconate 15ml Cup****oral rinse MM SCH ×3 (08:22→23:06)
[2020-06-26] MEDS: heparin, porcine 5000 units/ml vial SQ SCH ×2 (08:23→19:41)
[2020-06-26] MEDS: levoFLOXACIN-Levaquin 750MG/D5 150 ML IV SCH (08:24)
[2020-06-26] MEDS: NYSTATIN CREAM - 30GM TUBE TP SCH ×2 (08:24→19:40)
[2020-06-26] MEDS ORDERED: iohexol 300 MG/1 ML 50ml polymer ONE (09:52)
--- NOTE | 2020-06-26 10:58 | NUR ---
rounds note; Patient received a paracentesis with DR. Espinosa, based on CT abdomen pelvis results, 3L off chris drain placed. Dr. Wong by to consult with Dr. Cristhian Wong stated that she will likely go to OR this afternoon based on the CT results showing that the G tube is displaced. Patient will be strict NPO most PO meds will be switched to an IV route if available. Will update patients mother at Dr. Boyer request
[2020-06-26 11:51] LABS: GLUCOSE,BODY FLUID 6 MG/DL; LDH,BODY FLUID 13800 U/L; TOTAL PROTEIN,BODY FLUID 2.4 G/DL
[2020-06-26] MEDS: albumin 25% 100mL bottle x 1 IV SCH (12:08)
[2020-06-26] MEDS: thiamine inj. 100 MG in normal saline 100ml IV soln 100 ML IV SCH (13:44)
[2020-06-26] MEDS: folic acid 1mg/0.2ml inj IV SCH (13:45)
[2020-06-26] MEDS: NORepinephrine 8mg/ 250ml NS 250 ML IV PRN (16:42)
--- NOTE | 2020-06-26 18:15 | NUR ---
Patient in room ICU 2043. I have received report from Veronica CORNEJO and had the opportunity to ask questions and assume patient care.
--- NOTE | 2020-06-26 18:47 | NUR ---
Problems reprioritized. Patient report given, questions answered & plan of care reviewed with Ros CORNEJO.
[2020-06-27] VITALS (32 sets, daily range): BP systolic 80–160; BP diastolic 33–93
[2020-06-27] MEDS: ipratropium/albuterol 3ml nebule NEB SCH ×6 (02:08→23:30)
[2020-06-27 02:26] LABS: ABG BASE EXCESS -6.1 mmol/L (-2.0-2.0); ABG HCO3 18.7 mmol/L (22.0-26.0); ABG OXYGEN SATURATION 97.6 % (94-97); ABG PCO2 (T) 33.4 mmHg (32.0-45.0); FCOHb 0.5 % (0.0-3.9); FMetHb 0.5 % (0.0-1.5); FO2Hb 96.6 % (94-97); PATIENT TEMPERATURE 36.9; PEEP 5 cm H2O; RESPIRATORY RATE 14 b/min; TIDAL VOLUME 400 mL; TOTAL HEMOGLOBIN 6.3 G/dl (12.0-16.0)
[2020-06-27] MEDS: FENTANYL-0.9 % NACL/PF 100 ML IV PRN (03:31)
[2020-06-27] MEDS: fat emulsion 20% IV 100 ML, MVI, adult No.4 with vit. K 10 ML, Trace element-5 inj. 1 M... IV SCH ×4 (03:31)
[2020-06-27] MEDS: mineral oil/petrolatum ophthal oint EACHEYE SCH ×4 (03:32→20:17)
[2020-06-27 04:29] LABS: BASOPHILS % (AUTO) 0.1 % (0-1); EOSINOPHILS # (AUTO) 0.2 X10'3 (0-0.9); EOSINOPHILS % (AUTO) 1.6 % (0-6); LYMPHOCYTES # (AUTO) 1.7 X10'3 (1.1-4.8); LYMPHOCYTES % (AUTO) 14.2 % (21-51); MEAN CORPUSCULAR HEMOGLOBIN 28.3 PG (27.0-31.0); MEAN CORPUSCULAR HGB CONC 31.8 g/dL (33.0-36.5); MEAN CORPUSCULAR VOLUME 88.9 FL (78-98); MEAN PLATELET VOLUME 8.6 FL (7.4-10.4); MONOCYTES # (AUTO) 0.5 X10'3 (0-0.9); MONOCYTES % (AUTO) 4.5 % (2-12); NEUTROPHILS # (AUTO) 9.4 X10'3 (1.8-7.7); NEUTROPHILS % (AUTO) 79.6 % (42-75); PLATELET COUNT 131 X10'3 (140-440); RED BLOOD COUNT 2.01 X10'6 (4.20-5.60); RED CELL DISTRIBUTION WIDTH 17.8 % (11.5-14.5); WHITE BLOOD COUNT 11.9 X10'3 (4.5-11.0)
[2020-06-27 04:50] LABS: HEMOGLOBIN 5.7 g/dl (12.0-16.0)
[2020-06-27 04:51] LABS: HEMATOCRIT 17.9 % (35.0-45.0)
--- NOTE | 2020-06-27 05:00 | NUR ---
Patient has critical Hgb (5.8) and Hct (18.1). Zac Kevin SENIOR JAVASCRIPT ENGINEER aware, she will call family to get consent for blood transfusion. Type and screen done.
[2020-06-27 05:01] LABS: ALANINE AMINOTRANSFERASE 17 U/L (12-78); ALBUMIN 1.4 G/DL (3.4-5.0); ALBUMIN/GLOBULIN RATIO 0.4 (1.1-1.5); ALKALINE PHOSPHATASE 56 IU/L (46-116); ANION GAP 9 (8-16); ASPARTATE AMINO TRANSFERASE 14 U/L (10-37); BILIRUBIN,TOTAL 0.6 MG/DL (0.1-1.0); BLOOD UREA NITROGEN 24 MG/DL (7-18); BUN/CREATININE RATIO 53.3 (6.6-38.0); CALCIUM 8.6 MG/DL (8.5-10.1); CHLORIDE 119 MMOL/L (99-107); CREATININE 0.45 MG/DL (0.40-0.90); GLUCOSE 125 MG/DL (70-104); MAGNESIUM 1.1 MG/DL (1.5-2.4); PHOSPHORUS 2.4 MG/DL (2.3-4.5); POTASSIUM 3.1 MMOL/L (3.5-5.1); PREALBUMIN 4.5 MG/DL (19-36); SODIUM 148 MMOL/L (135-145); TOTAL CARBON DIOXIDE 20.2 MMOL/L (24-32); TOTAL PROTEIN 4.9 G/DL (6.4-8.2); eGFR > 90 ML/MIN
[2020-06-27 05:03] LABS: ANISOCYTOSIS 1+; PLATELET ESTIMATE DECREASED; TOTAL CELLS COUNTED 100
[2020-06-27 05:34] LABS: MEAN CORPUSCULAR HEMOGLOBIN 28.2 PG (27.0-31.0); MEAN CORPUSCULAR HGB CONC 31.8 g/dL (33.0-36.5); MEAN CORPUSCULAR VOLUME 88.7 FL (78-98); PLATELET COUNT 131 X10'3 (140-440); RED BLOOD COUNT 2.04 X10'6 (4.20-5.60); RED CELL DISTRIBUTION WIDTH 17.8 % (11.5-14.5); WHITE BLOOD COUNT 11.9 X10'3 (4.5-11.0)
[2020-06-27 05:51] LABS: HEMOGLOBIN 5.8 g/dl (12.0-16.0)
[2020-06-27 05:52] LABS: HEMATOCRIT 18.1 % (35.0-45.0)
--- NOTE | 2020-06-27 06:31 | NUR ---
Problems reprioritized. Patient report given, questions answered & plan of care reviewed with Lior CORNEJO.
[2020-06-27 07:33] LABS: PARTIAL THROMBOPLASTIN TIME 34 SECONDS (22-32)
[2020-06-27] MEDS ORDERED: folic acid 1mg/0.2ml inj IV SCH (08:00)
[2020-06-27] MEDS: K, MAG and/or Phos replacement - Verify level? MC SCH (08:00)
[2020-06-27] MEDS: chlorhexidine gluconate 15ml Cup****oral rinse MM SCH ×2 (08:06→17:52)
[2020-06-27] MEDS: methylnaltrexone br 12mg/0.6ml inj***SubQ only SQ SCH (08:06)
[2020-06-27] MEDS: folic acid 1mg/0.2ml inj IV SCH (08:07)
[2020-06-27] MEDS: albumin 25% 100mL bottle x 1 IV SCH (08:08)
[2020-06-27] MEDS: heparin, porcine 5000 units/ml vial SQ SCH ×2 (08:21→20:17)
[2020-06-27] MEDS: levoFLOXACIN-Levaquin 750MG/D5 150 ML IV SCH (08:22)
[2020-06-27] MEDS: famotidine/PF 10 mg/ml inj IV SCH ×2 (08:22→20:17)
[2020-06-27] MEDS: thiamine inj. 100 MG in normal saline 100ml IV soln 100 ML IV SCH (08:22)
[2020-06-27] MEDS: NYSTATIN CREAM - 30GM TUBE TP SCH ×2 (08:22→20:17)
--- NOTE | 2020-06-27 11:58 | NUR ---
Reassessment: Pt tolerating TPN at goal K 3.1 receiving replacement per protocol. Na 148 elevation likely to impact K as well. CT shows extensive enhancing fluid collections throughout the entire abdomen and pelvis per EMR. Primary considerations are large multiloculated abscesses versus malignant ascites per DM note. Pt s/p -3L paracentesis yesterday including prior tube feed per machine steak tenderizer. Pt s/p MARIA ALEJANDRA drain placement yesterday w/ 150ml output so far this AM per EMR. Pending possible new G-tube placement per machine steak tenderizer at rounds. Pending new PALB at this time; will monitor for additional protein needs. Recommendations: 1) 3:1 TPN using Clinimix E 12/12 with 100ml 20% intralipids at goal rate of 80 ml/hr will provide total 1791 calories, 91 g protein, 1920 ml volume, 4.04 mg/kg/min CHO loading. 2) TG/PALB Q /, daily wts 3) monitor for bowel function 4) Consider trickle EN once new G-tube placed and GI function returns as medically indicated this admit Addendum: 06/27/20 at [address] Amended: Links added.
[2020-06-27 14:43] LABS: HEMATOCRIT 25.2 % (35.0-45.0); HEMOGLOBIN 8.2 g/dl (12.0-16.0); MEAN CORPUSCULAR HEMOGLOBIN 28.4 PG (27.0-31.0); MEAN CORPUSCULAR HGB CONC 32.6 g/dL (33.0-36.5); MEAN CORPUSCULAR VOLUME 87.2 FL (78-98); MEAN PLATELET VOLUME 8.2 FL (7.4-10.4); PLATELET COUNT 126 X10'3 (140-440); RED BLOOD COUNT 2.89 X10'6 (4.20-5.60); RED CELL DISTRIBUTION WIDTH 16.8 % (11.5-14.5); WHITE BLOOD COUNT 13.2 X10'3 (4.5-11.0)
[2020-06-27] MEDS: potassium Cl 20mEq/100mL bag 100 ML IV PRN ×2 (15:12→17:52)
[2020-06-27 15:43] LABS: AMYLASE 38 U/L (25-115); LIPASE 102 U/L (73-393)
--- NOTE | 2020-06-27 18:09 | NUR ---
I have reviewed and agree with all medications administered and interventions performed by NEWS COPY EDITOR Student Tye Burton.
--- NOTE | 2020-06-27 18:15 | NUR ---
Patient in room ICU 2043. I have received report from Lior CORNEJO and had the opportunity to ask questions and assume patient care.
--- NOTE | 2020-06-27 18:26 | NUR ---
Problems reprioritized. Patient report given, questions answered & plan of care reviewed with Ros CORNEJO.
[2020-06-27] MEDS ORDERED: lactobacillus rhamnosus 10,000 MMU CELLS/CAPSULE PO SCH (20:00)
[2020-06-27] MEDS: magnesium 2GM in 50ml NS 50 ML IV PRN (20:18)
[2020-06-27 20:40] LABS: HEMATOCRIT 23.9 % (35.0-45.0); HEMOGLOBIN 7.9 g/dl (12.0-16.0); MEAN CORPUSCULAR HEMOGLOBIN 28.4 PG (27.0-31.0); MEAN CORPUSCULAR VOLUME 85.9 FL (78-98); MEAN PLATELET VOLUME 8.4 FL (7.4-10.4); PLATELET COUNT 139 X10'3 (140-440); RED BLOOD COUNT 2.79 X10'6 (4.20-5.60); RED CELL DISTRIBUTION WIDTH 17.3 % (11.5-14.5); WHITE BLOOD COUNT 12.9 X10'3 (4.5-11.0)
[2020-06-28] VITALS (24 sets, daily range): BP systolic 100–160; BP diastolic 44–87
[2020-06-28] MEDS: FENTANYL-0.9 % NACL/PF 100 ML IV PRN ×3 (01:21→21:51)
[2020-06-28] MEDS: chlorhexidine gluconate 15ml Cup****oral rinse MM SCH ×3 (01:23→16:13)
[2020-06-28] MEDS: ipratropium/albuterol 3ml nebule NEB SCH ×6 (03:07→23:15)
[2020-06-28 03:25] LABS: ABG BASE EXCESS -5.6 mmol/L (-2.0-2.0); ABG OXYGEN SATURATION 97.3 % (94-97); ABG PCO2 (T) 33.7 mmHg (32.0-45.0); ABG PO2 (T) 99.5 mmHg (75.0-100.0); FCOHb 0.3 % (0.0-3.9); FMetHb 0.3 % (0.0-1.5); FO2Hb 96.7 % (94-97); PEEP 5 cm H2O; RESPIRATORY RATE 14 b/min; TIDAL VOLUME 400 mL; TOTAL HEMOGLOBIN 8.3 G/dl (12.0-16.0)
[2020-06-28 03:35] LABS: BASOPHILS % (AUTO) 0.2 % (0-1); EOSINOPHILS # (AUTO) 0.3 X10'3 (0-0.9); EOSINOPHILS % (AUTO) 2.5 % (0-6); HEMATOCRIT 23.4 % (35.0-45.0); HEMOGLOBIN 7.8 g/dl (12.0-16.0); LYMPHOCYTES # (AUTO) 1.5 X10'3 (1.1-4.8); MEAN CORPUSCULAR HEMOGLOBIN 28.5 PG (27.0-31.0); MEAN CORPUSCULAR HGB CONC 33.3 g/dL (33.0-36.5); MEAN CORPUSCULAR VOLUME 85.6 FL (78-98); MEAN PLATELET VOLUME 8.4 FL (7.4-10.4); MONOCYTES # (AUTO) 0.7 X10'3 (0-0.9); MONOCYTES % (AUTO) 5.1 % (2-12); NEUTROPHILS # (AUTO) 10.3 X10'3 (1.8-7.7); NEUTROPHILS % (AUTO) 80.2 % (42-75); PLATELET COUNT 141 X10'3 (140-440); RED BLOOD COUNT 2.73 X10'6 (4.20-5.60); RED CELL DISTRIBUTION WIDTH 17.3 % (11.5-14.5); WHITE BLOOD COUNT 12.9 X10'3 (4.5-11.0)
[2020-06-28 03:56] LABS: ALANINE AMINOTRANSFERASE 19 U/L (12-78); ALBUMIN 1.5 G/DL (3.4-5.0); ALBUMIN/GLOBULIN RATIO 0.4 (1.1-1.5); ALKALINE PHOSPHATASE 56 IU/L (46-116); ANION GAP 8 (8-16); ASPARTATE AMINO TRANSFERASE 14 U/L (10-37); BILIRUBIN,TOTAL 0.9 MG/DL (0.1-1.0); BLOOD UREA NITROGEN 20 MG/DL (7-18); BUN/CREATININE RATIO 57.1 (6.6-38.0); CALCIUM 9.1 MG/DL (8.5-10.1); CHLORIDE 116 MMOL/L (99-107); CREATININE 0.35 MG/DL (0.40-0.90); GLUCOSE 129 MG/DL (70-104); MAGNESIUM 1.2 MG/DL (1.5-2.4); PHOSPHORUS 2.4 MG/DL (2.3-4.5); SODIUM 146 MMOL/L (135-145); TOTAL CARBON DIOXIDE 21.7 MMOL/L (24-32); TOTAL PROTEIN 5.1 G/DL (6.4-8.2); eGFR > 90 ML/MIN
[2020-06-28 03:58] LABS: POTASSIUM 2.9 MMOL/L (3.5-5.1)
[2020-06-28] MEDS: potassium Cl 20mEq/100mL bag 100 ML IV PRN ×5 (04:03→12:19)
[2020-06-28] MEDS: mineral oil/petrolatum ophthal oint EACHEYE SCH ×4 (04:03→20:21)
--- NOTE | 2020-06-28 06:51 | NUR ---
Problems reprioritized. Patient report given, questions answered & plan of care reviewed with Rush CORNEJO.
[2020-06-28] MEDS: thiamine inj. 100 MG in normal saline 100ml IV soln 100 ML IV SCH (07:34)
[2020-06-28] MEDS: famotidine/PF 10 mg/ml inj IV SCH ×2 (07:34→20:21)
[2020-06-28] MEDS: folic acid 1mg/0.2ml inj IV SCH (07:34)
[2020-06-28] MEDS: levoFLOXACIN-Levaquin 750MG/D5 150 ML IV SCH (07:34)
[2020-06-28] MEDS: heparin, porcine 5000 units/ml vial SQ SCH (07:35)
[2020-06-28] MEDS: NYSTATIN CREAM - 30GM TUBE TP SCH ×2 (07:35→20:21)
[2020-06-28] MEDS: albumin 25% 100mL bottle x 1 IV SCH (07:36)
[2020-06-28] MEDS: K, MAG and/or Phos replacement - Verify level? MC SCH (08:00)
[2020-06-28] MEDS: magnesium 2GM in 50ml NS 50 ML IV PRN (12:53)
[2020-06-28] MEDS: diatr meglu/diatrizoate 30ml oral sol.-(3 dose) bottle PO SCH ×3 (14:09→21:52)
--- NOTE | 2020-06-28 18:15 | NUR ---
Patient in room ICU 2043. I have received report from Rush CORNEJO and had the opportunity to ask questions and assume patient care.
[2020-06-28] MEDS: enoxaparin 40mg/0.4ml syringe SUBCUT SCH (20:21)
[2020-06-28] MEDS ORDERED: tPA-cathflo 2 MG/2 ml IV flush IVF ONE (20:55)
[2020-06-28] MEDS ORDERED: dexmedetomidin/NS 400mcg/100ml 100 ML IV PRN (20:55)
[2020-06-28] MEDS ORDERED: diatr meglu/diatrizoate 30ml oral sol.-(3 dose) bottle PO SCH (21:00)
[2020-06-28] MEDS: dexmedetomidine/D5W 100mL 100 ML IV PRN (21:49)
[2020-06-29] VITALS (24 sets, daily range): BP systolic 95–160; BP diastolic 48–88
[2020-06-29] MEDS: dexmedetomidine/D5W 100mL 100 ML IV PRN ×4 (01:45→20:28)
[2020-06-29] MEDS: chlorhexidine gluconate 15ml Cup****oral rinse MM SCH ×3 (01:46→16:00)
[2020-06-29] MEDS: mineral oil/petrolatum ophthal oint EACHEYE SCH ×4 (01:46→20:57)
[2020-06-29] MEDS: ipratropium/albuterol 3ml nebule NEB SCH ×6 (02:58→23:08)
[2020-06-29 03:11] LABS: ABG BASE EXCESS -5.8 mmol/L (-2.0-2.0); ABG HCO3 19.1 mmol/L (22.0-26.0); ABG OXYGEN SATURATION 97.7 % (94-97); ABG PO2 (T) 102.2 mmHg (75.0-100.0); ALLEN'S TEST POSITIVE; FCOHb 0.1 % (0.0-3.9); FMetHb 0.1 % (0.0-1.5); FO2Hb 97.5 % (94-97); PEEP 5 cm H2O; RESPIRATORY RATE 14 b/min; TIDAL VOLUME 400 mL; TOTAL HEMOGLOBIN 10.5 G/dl (12.0-16.0)
[2020-06-29 03:21] LABS: BASOPHILS % (AUTO) 0.1 % (0-1); EOSINOPHILS # (AUTO) 0.3 X10'3 (0-0.9); EOSINOPHILS % (AUTO) 2.4 % (0-6); HEMATOCRIT 28.6 % (35.0-45.0); HEMOGLOBIN 9.4 g/dl (12.0-16.0); LYMPHOCYTES # (AUTO) 1.4 X10'3 (1.1-4.8); LYMPHOCYTES % (AUTO) 11.3 % (21-51); MEAN CORPUSCULAR HEMOGLOBIN 28.1 PG (27.0-31.0); MEAN CORPUSCULAR HGB CONC 32.8 g/dL (33.0-36.5); MEAN CORPUSCULAR VOLUME 85.7 FL (78-98); MEAN PLATELET VOLUME 8.2 FL (7.4-10.4); MONOCYTES # (AUTO) 0.4 X10'3 (0-0.9); MONOCYTES % (AUTO) 3.6 % (2-12); NEUTROPHILS # (AUTO) 10.3 X10'3 (1.8-7.7); NEUTROPHILS % (AUTO) 82.6 % (42-75); PLATELET COUNT 202 X10'3 (140-440); RED BLOOD COUNT 3.34 X10'6 (4.20-5.60); RED CELL DISTRIBUTION WIDTH 17.4 % (11.5-14.5); WHITE BLOOD COUNT 12.4 X10'3 (4.5-11.0)
[2020-06-29 03:31] LABS: ALANINE AMINOTRANSFERASE 24 U/L (12-78); ALBUMIN 1.8 G/DL (3.4-5.0); ALBUMIN/GLOBULIN RATIO 0.5 (1.1-1.5); ALKALINE PHOSPHATASE 69 IU/L (46-116); ANION GAP 8 (8-16); ASPARTATE AMINO TRANSFERASE 20 U/L (10-37); BILIRUBIN,TOTAL 1.4 MG/DL (0.1-1.0); BLOOD UREA NITROGEN 21 MG/DL (7-18); BUN/CREATININE RATIO 52.5 (6.6-38.0); CALCIUM 8.9 MG/DL (8.5-10.1); CHLORIDE 113 MMOL/L (99-107); GLUCOSE 128 MG/DL (70-104); MAGNESIUM 1.3 MG/DL (1.5-2.4); PHOSPHORUS 2.1 MG/DL (2.3-4.5); POTASSIUM 3.3 MMOL/L (3.5-5.1); SODIUM 142 MMOL/L (135-145); TOTAL CARBON DIOXIDE 21.3 MMOL/L (24-32); TOTAL PROTEIN 5.7 G/DL (6.4-8.2); eGFR > 90 ML/MIN
[2020-06-29] MEDS: potassium Cl 20mEq/100mL bag 100 ML IV PRN ×2 (05:02→07:16)
--- NOTE | 2020-06-29 06:22 | NUR ---
Problems reprioritized. Patient report given, questions answered & plan of care reviewed with Rush CORNEJO.
[2020-06-29] MEDS: NYSTATIN CREAM - 30GM TUBE TP SCH ×2 (07:15→20:57)
[2020-06-29] MEDS: fat emulsion 20% IV 100 ML, MVI, adult No.4 with vit. K 10 ML, Trace element-5 inj. 1 M... IV SCH ×4 (07:18)
[2020-06-29] MEDS: thiamine inj. 100 MG in normal saline 100ml IV soln 100 ML IV SCH (07:18)
[2020-06-29] MEDS: levoFLOXACIN-Levaquin 750MG/D5 150 ML IV SCH (07:18)
[2020-06-29] MEDS: methylnaltrexone br 12mg/0.6ml inj***SubQ only SQ SCH (07:19)
[2020-06-29] MEDS: famotidine/PF 10 mg/ml inj IV SCH ×2 (07:19→20:56)
[2020-06-29] MEDS: folic acid 1mg/0.2ml inj IV SCH (07:19)
[2020-06-29] MEDS: magnesium 2GM in 50ml NS 50 ML IV PRN (07:27)
[2020-06-29] MEDS: K, MAG and/or Phos replacement - Verify level? MC SCH (08:00)
[2020-06-29] MEDS: FENTANYL-0.9 % NACL/PF 100 ML IV PRN ×2 (08:23→22:02)
[2020-06-29] MEDS ORDERED: normal saline 500ml IV soln 1,000 ML IV ONE (11:50)
--- NOTE | 2020-06-29 11:59 | NUR ---
notified Dr. Morrow that patient's Urine output has decreased from 60-100cc an hour to 10-20 cc an hour since yesterday evening. Orders received for 500cc NS bolus.
--- NOTE | 2020-06-29 14:12 | NUR ---
notified Dr. Morrow that patient still isn't producing urine after being given a 500cc bolus, abdomen is still distended and green fluid oozing from peg tube site. New orders received for 40 lasix once.
[2020-06-29] MEDS ORDERED: furosemide 40mg/4ml inj IV ONE (14:15)
[2020-06-29 15:04] LABS: MAGNESIUM 1.7 MG/DL (1.5-2.4)
[2020-06-29] MEDS: acetaminophen 650mg rectal suppository RC PRN (16:45)
--- NOTE | 2020-06-29 16:57 | NUR ---
patient adamant about not receiving afternoon chlorhaxadine mouth wash and dressing changes. will continue to monitor.
--- NOTE | 2020-06-29 18:20 | NUR ---
Patient report given, questions answered & plan of care reviewed with Mallory CORNEJO.
[2020-06-29] MEDS: enoxaparin 40mg/0.4ml syringe SUBCUT SCH (20:57)
[2020-06-30] VITALS (22 sets, daily range): BP systolic 90–124; BP diastolic 43–59
[2020-06-30] MEDS: acetaminophen 650mg rectal suppository RC PRN (00:22)
[2020-06-30] MEDS: chlorhexidine gluconate 15ml Cup****oral rinse MM SCH ×3 (00:49→17:15)
[2020-06-30] MEDS: mineral oil/petrolatum ophthal oint EACHEYE SCH ×4 (02:00→21:00)
[2020-06-30] MEDS: dexmedetomidine/D5W 100mL 100 ML IV PRN ×4 (03:02→17:15)
[2020-06-30] MEDS: ipratropium/albuterol 3ml nebule NEB SCH ×6 (03:30→23:03)
[2020-06-30 03:31] LABS: BASOPHILS % (AUTO) 0.1 % (0-1); EOSINOPHILS # (AUTO) 0.1 X10'3 (0-0.9); EOSINOPHILS % (AUTO) 0.3 % (0-6); HEMATOCRIT 27.9 % (35.0-45.0); LYMPHOCYTES # (AUTO) 1.6 X10'3 (1.1-4.8); LYMPHOCYTES % (AUTO) 8.5 % (21-51); MEAN CORPUSCULAR HEMOGLOBIN 28.3 PG (27.0-31.0); MEAN CORPUSCULAR HGB CONC 32.3 g/dL (33.0-36.5); MEAN CORPUSCULAR VOLUME 87.5 FL (78-98); MONOCYTES # (AUTO) 0.6 X10'3 (0-0.9); MONOCYTES % (AUTO) 3.1 % (2-12); PLATELET COUNT 245 X10'3 (140-440); RED BLOOD COUNT 3.19 X10'6 (4.20-5.60); RED CELL DISTRIBUTION WIDTH 17.5 % (11.5-14.5); WHITE BLOOD COUNT 19.3 X10'3 (4.5-11.0)
[2020-06-30 03:40] LABS: ABG BASE EXCESS -10.5 mmol/L (-2.0-2.0); ABG HCO3 14.6 mmol/L (22.0-26.0); ABG PCO2 (T) 31.7 mmHg (32.0-45.0); ABG PO2 (T) 101.9 mmHg (75.0-100.0); FCOHb 0.1 % (0.0-3.9); FMetHb 0.1 % (0.0-1.5); FO2Hb 96.8 % (94-97); PATIENT TEMPERATURE 38.2; PEEP 5 cm H2O; RESPIRATORY RATE 14 b/min; TIDAL VOLUME 400 mL
[2020-06-30 03:44] LABS: ALANINE AMINOTRANSFERASE 59 U/L (12-78); ALBUMIN 1.6 G/DL (3.4-5.0); ALBUMIN/GLOBULIN RATIO 0.4 (1.1-1.5); ALKALINE PHOSPHATASE 70 IU/L (46-116); ANION GAP 8 (8-16); ASPARTATE AMINO TRANSFERASE 71 U/L (10-37); BILIRUBIN,TOTAL 2.3 MG/DL (0.1-1.0); BLOOD UREA NITROGEN 43 MG/DL (7-18); BUN/CREATININE RATIO 42.6 (6.6-38.0); CALCIUM 9.6 MG/DL (8.5-10.1); CHLORIDE 109 MMOL/L (99-107); CREATININE 1.01 MG/DL (0.40-0.90); GLUCOSE 129 MG/DL (70-104); MAGNESIUM 1.6 MG/DL (1.5-2.4); PHOSPHORUS 2.5 MG/DL (2.3-4.5); POTASSIUM 4.3 MMOL/L (3.5-5.1); SODIUM 136 MMOL/L (135-145); TOTAL CARBON DIOXIDE 18.9 MMOL/L (24-32); TOTAL PROTEIN 5.6 G/DL (6.4-8.2); eGFR 66 ML/MIN
[2020-06-30 04:19] LABS: ANISOCYTOSIS 1+; PLATELET ESTIMATE NORMAL; POLYCHROMASIA FEW; TOTAL CELLS COUNTED 100
--- NOTE | 2020-06-30 06:00 | NUR ---
Patient in room ICU 2043. I have received report from Mallory CORNEJO and had the opportunity to ask questions and assume patient care.
--- NOTE | 2020-06-30 06:52 | NUR ---
Problems reprioritized. Patient report given, questions answered & plan of care reviewed with CLEMENTE Grant.
[2020-06-30] MEDS: K, MAG and/or Phos replacement - Verify level? MC SCH (08:00)
[2020-06-30] MEDS: fat emulsion 20% IV 100 ML, MVI, adult No.4 with vit. K 10 ML, Trace element-5 inj. 1 M... IV SCH ×4 (09:14)
[2020-06-30] MEDS: folic acid 1mg/0.2ml inj IV SCH (09:14)
[2020-06-30] MEDS: famotidine/PF 10 mg/ml inj IV SCH (09:15)
[2020-06-30] MEDS: thiamine inj. 100 MG in normal saline 100ml IV soln 100 ML IV SCH (09:15)
[2020-06-30] MEDS: NYSTATIN CREAM - 30GM TUBE TP SCH ×2 (09:15→21:00)
[2020-06-30] MEDS: levoFLOXACIN-Levaquin 750MG/D5 150 ML IV SCH (09:17)
[2020-06-30] MEDS: FENTANYL-0.9 % NACL/PF 100 ML IV PRN (11:40)
--- NOTE | 2020-06-30 12:21 | NUR ---
F/u 06/30: Pt tolerating TPN at goal. Abdomen MARIA ALEJANDRA -1015ml output past 24 hours w/ -520ml output already today. Pt peritoneal came back w/ multiple organisms concerning of colonic source of peritonitis per MD note. Pt NPO pending OR today for GI evaluation per MD note. Will continue to monitor for OR results, GI function, and nutrition support tolerance. Recommendations: 1) 3:1 TPN using Clinimix E 12/12 with 100ml 20% intralipids at goal rate of 80 ml/hr will provide total 1791 calories, 91 g protein, 1920 ml volume, 4.04 mg/kg/min CHO loading. 2) TG/PALB Q /, daily wts 3) monitor for bowel function and GI OR results 4) Consider trickle EN once new G-tube placed IF: GI integrity verified, and GI function returns as medically indicated this admit Addendum: 06/30/20 at [address] Amended: Links added.
[2020-06-30] MEDS: fluconazole/NS 400mg/200ml bag 200 ML IV SCH (13:48)
--- NOTE | 2020-06-30 15:33 | NUR ---
notified mother that pt will be going for exploratory surgery this afternoon.
--- NOTE | 2020-06-30 18:08 | NUR ---
Problems reprioritized. Patient report given, questions answered & plan of care reviewed with Mallory CORNEJO.
--- NOTE | 2020-06-30 18:16 | NUR ---
Patient in room ICU 2043. I have received report from CLEMENTE Grant and had the opportunity to ask questions and assume patient care.
[2020-06-30] MEDS ORDERED: [UNRECOGNIZED DRUG - REMARK] IV SCH ×5 (22:12)
[2020-06-30] MEDS ORDERED: rocuronium 10mg/ml inj IV ONE (23:05)
[2020-06-30] MEDS ORDERED: phenylephrine 10mg/ml inj. ONE (23:05)
[2020-06-30] MEDS: NORepinephrine 8mg/ 250ml NS 250 ML IV SCH (23:05)
[2020-06-30] MEDS ORDERED: albumin (Human) 5% 250ml 750 ML IV ONE (23:05)
[2020-07-01] VITALS (25 sets, daily range): BP systolic 94–129; BP diastolic 36–57
[2020-07-01] MEDS: chlorhexidine gluconate 15ml Cup****oral rinse MM SCH ×3 (00:44→16:00)
[2020-07-01] MEDS: dexmedetomidine/D5W 100mL 100 ML IV PRN ×3 (00:45→12:39)
[2020-07-01] MEDS: FENTANYL-0.9 % NACL/PF 100 ML IV PRN ×3 (00:49→20:15)
[2020-07-01] MEDS: famotidine/PF 10 mg/ml inj IV SCH ×3 (00:59→20:16)
[2020-07-01] MEDS: enoxaparin 40mg/0.4ml syringe SUBCUT SCH ×2 (01:00→20:23)
--- NOTE | 2020-07-01 01:00 | NUR ---
REY Palma okayed giving Lovenox and Pepcid at later time then yazmin.
[2020-07-01] MEDS: mineral oil/petrolatum ophthal oint EACHEYE SCH ×4 (02:01→20:35)
[2020-07-01 03:24] LABS: BASOPHILS % (AUTO) 0.1 % (0-1); EOSINOPHILS % (AUTO) 0.2 % (0-6); HEMATOCRIT 27.2 % (35.0-45.0); HEMOGLOBIN 8.7 g/dl (12.0-16.0); LYMPHOCYTES # (AUTO) 2.2 X10'3 (1.1-4.8); LYMPHOCYTES % (AUTO) 9.8 % (21-51); MEAN CORPUSCULAR HEMOGLOBIN 28.5 PG (27.0-31.0); MEAN CORPUSCULAR HGB CONC 31.9 g/dL (33.0-36.5); MEAN CORPUSCULAR VOLUME 89.4 FL (78-98); MEAN PLATELET VOLUME 7.8 FL (7.4-10.4); MONOCYTES # (AUTO) 1.2 X10'3 (0-0.9); MONOCYTES % (AUTO) 5.1 % (2-12); NEUTROPHILS # (AUTO) 19.3 X10'3 (1.8-7.7); NEUTROPHILS % (AUTO) 84.8 % (42-75); PLATELET COUNT 296 X10'3 (140-440); RED BLOOD COUNT 3.05 X10'6 (4.20-5.60); WHITE BLOOD COUNT 22.8 X10'3 (4.5-11.0)
[2020-07-01 03:34] LABS: ALANINE AMINOTRANSFERASE 83 U/L (12-78); ALBUMIN 2.2 G/DL (3.4-5.0); ALBUMIN/GLOBULIN RATIO 0.6 (1.1-1.5); ALKALINE PHOSPHATASE 72 IU/L (46-116); ANION GAP 11 (8-16); ASPARTATE AMINO TRANSFERASE 87 U/L (10-37); BILIRUBIN,TOTAL 3.2 MG/DL (0.1-1.0); BLOOD UREA NITROGEN 53 MG/DL (7-18); BUN/CREATININE RATIO 54.1 (6.6-38.0); CALCIUM 9.7 MG/DL (8.5-10.1); CHLORIDE 108 MMOL/L (99-107); CREATININE 0.98 MG/DL (0.40-0.90); GLUCOSE 158 MG/DL (70-104); MAGNESIUM 1.5 MG/DL (1.5-2.4); PHOSPHORUS 4.2 MG/DL (2.3-4.5); POTASSIUM 3.6 MMOL/L (3.5-5.1); SODIUM 135 MMOL/L (135-145); TOTAL PROTEIN 5.7 G/DL (6.4-8.2); eGFR 69 ML/MIN
[2020-07-01] MEDS: ipratropium/albuterol 3ml nebule NEB SCH ×6 (03:47→23:21)
[2020-07-01 04:05] LABS: ABG HCO3 14.9 mmol/L (22.0-26.0); ABG OXYGEN SATURATION 99.4 % (94-97); ABG PCO2 (T) 41.1 mmHg (32.0-45.0); ABG PO2 (T) 335.5 mmHg (75.0-100.0); FCOHb 0.1 % (0.0-3.9); FMetHb 0.3 % (0.0-1.5); PATIENT TEMPERATURE 36.2; PEEP 5 cm H2O; RESPIRATORY RATE 18 b/min; TIDAL VOLUME 400 mL; TOTAL HEMOGLOBIN 9.7 G/dl (12.0-16.0)
[2020-07-01 04:09] LABS: ANISOCYTOSIS 1+; NUCLEATED RED BLOOD CELLS 1 /100WBC (0-0); PLATELET ESTIMATE NORMAL; POLYCHROMASIA FEW; TOTAL CELLS COUNTED 100
--- NOTE | 2020-07-01 04:47 | NUR ---
Decreased urine output for the past 4 hours, totaling 22 mL. REY Palma ordered 500ccs bolus of NS due to probable vascular dryness. Will continue to monitor.
--- NOTE | 2020-07-01 06:21 | NUR ---
Problems reprioritized. Patient report given, questions answered & plan of care reviewed with CLEMENTE Khalil.
[2020-07-01] MEDS: NYSTATIN CREAM - 30GM TUBE TP SCH ×2 (08:00→20:58)
[2020-07-01] MEDS: K, MAG and/or Phos replacement - Verify level? MC SCH (08:00)
[2020-07-01] MEDS ORDERED: [UNRECOGNIZED DRUG - REMARK] IV SCH ×5 (09:00)
[2020-07-01] MEDS: thiamine inj. 100 MG in normal saline 100ml IV soln 100 ML IV SCH (09:06)
[2020-07-01] MEDS: fluconazole/NS 400mg/200ml bag 200 ML IV SCH (09:06)
[2020-07-01] MEDS: methylnaltrexone br 12mg/0.6ml inj***SubQ only SQ SCH (10:49)
[2020-07-01] MEDS: levoFLOXACIN-Levaquin 750MG/D5 150 ML IV SCH (10:50)
[2020-07-01] MEDS: folic acid 1mg/0.2ml inj IV SCH (10:50)
[2020-07-01] MEDS: piperacillin/tazo 3.375gm/50ml 50 ML IV SCH (17:00)
[2020-07-02] VITALS (23 sets, daily range): BP systolic 97–127; BP diastolic 43–64
[2020-07-02] MEDS: mineral oil/petrolatum ophthal oint EACHEYE SCH ×4 (01:10→19:15)
[2020-07-02] MEDS: piperacillin/tazo 3.375gm/50ml 50 ML IV SCH ×3 (01:10→17:47)
[2020-07-02] MEDS: chlorhexidine gluconate 15ml Cup****oral rinse MM SCH ×3 (01:10→17:44)
[2020-07-02] MEDS: dexmedetomidine/D5W 100mL 100 ML IV PRN ×3 (01:53→20:52)
[2020-07-02] MEDS: ipratropium/albuterol 3ml nebule NEB SCH ×6 (03:14→22:51)
[2020-07-02 03:25] LABS: ABG BASE EXCESS -11.6 mmol/L (-2.0-2.0); ABG HCO3 15.2 mmol/L (22.0-26.0); ABG OXYGEN SATURATION 98.6 % (94-97); ABG PCO2 (T) 37.3 mmHg (32.0-45.0); ABG PO2 (T) 126.8 mmHg (75.0-100.0); FCOHb 0.2 % (0.0-3.9); FMetHb 0.1 % (0.0-1.5); FO2Hb 98.3 % (94-97); PATIENT TEMPERATURE 36.5; PEEP 5 cm H2O; RESPIRATORY RATE 20 b/min; TIDAL VOLUME 400 mL; TOTAL HEMOGLOBIN 8.3 G/dl (12.0-16.0)
[2020-07-02 03:44] LABS: BASOPHILS # (AUTO) 0.1 X10'3 (0-0.2); BASOPHILS % (AUTO) 0.3 % (0-1); EOSINOPHILS # (AUTO) 0.2 X10'3 (0-0.9); EOSINOPHILS % (AUTO) 0.8 % (0-6); HEMATOCRIT 22.9 % (35.0-45.0); HEMOGLOBIN 7.3 g/dl (12.0-16.0); LYMPHOCYTES # (AUTO) 2.3 X10'3 (1.1-4.8); LYMPHOCYTES % (AUTO) 11.4 % (21-51); MEAN CORPUSCULAR HEMOGLOBIN 27.9 PG (27.0-31.0); MEAN CORPUSCULAR HGB CONC 31.8 g/dL (33.0-36.5); MEAN CORPUSCULAR VOLUME 87.6 FL (78-98); MEAN PLATELET VOLUME 7.8 FL (7.4-10.4); MONOCYTES # (AUTO) 1.8 X10'3 (0-0.9); MONOCYTES % (AUTO) 8.8 % (2-12); NEUTROPHILS # (AUTO) 15.8 X10'3 (1.8-7.7); NEUTROPHILS % (AUTO) 78.7 % (42-75); PLATELET COUNT 335 X10'3 (140-440); RED BLOOD COUNT 2.62 X10'6 (4.20-5.60); WHITE BLOOD COUNT 20.1 X10'3 (4.5-11.0)
[2020-07-02 04:01] LABS: ALANINE AMINOTRANSFERASE 59 U/L (12-78); ALBUMIN 1.6 G/DL (3.4-5.0); ALBUMIN/GLOBULIN RATIO 0.4 (1.1-1.5); ALKALINE PHOSPHATASE 85 IU/L (46-116); ANION GAP 11 (8-16); ASPARTATE AMINO TRANSFERASE 54 U/L (10-37); BILIRUBIN,TOTAL 2.1 MG/DL (0.1-1.0); BLOOD UREA NITROGEN 41 MG/DL (7-18); BUN/CREATININE RATIO 58.6 (6.6-38.0); CALCIUM 9.7 MG/DL (8.5-10.1); CHLORIDE 115 MMOL/L (99-107); GLUCOSE 136 MG/DL (70-104); MAGNESIUM 1.4 MG/DL (1.5-2.4); PHOSPHORUS 3.5 MG/DL (2.3-4.5); SODIUM 143 MMOL/L (135-145); TOTAL CARBON DIOXIDE 17.3 MMOL/L (24-32); TOTAL PROTEIN 5.4 G/DL (6.4-8.2); eGFR > 90 ML/MIN
[2020-07-02 04:05] LABS: POTASSIUM 2.4 MMOL/L (3.5-5.1)
[2020-07-02] MEDS: potassium Cl 20mEq/100mL bag 100 ML IV PRN ×8 (04:11→21:14)
--- NOTE | 2020-07-02 04:15 | NUR ---
RYE Palma was notified about critically low K+ of 2.4. Ordered to replace per pro. Will continue to monitor.
[2020-07-02] MEDS: NORepinephrine 8mg/ 250ml NS 250 ML IV SCH (05:34)
[2020-07-02] MEDS: FENTANYL-0.9 % NACL/PF 100 ML IV PRN ×2 (06:09→17:43)
--- NOTE | 2020-07-02 06:15 | NUR ---
Problems reprioritized. Patient report given, questions answered & plan of care reviewed with CLEMENTE Khalil.
--- NOTE | 2020-07-02 06:34 | NUR ---
Patient in room ICU 2043. I have received report from CLEMENTE Tejada and had the opportunity to ask questions and assume patient care.
[2020-07-02] MEDS: NYSTATIN CREAM - 30GM TUBE TP SCH ×2 (08:00→19:14)
[2020-07-02] MEDS: K, MAG and/or Phos replacement - Verify level? MC SCH (08:00)
[2020-07-02 08:14] LABS: ANISOCYTOSIS 1+; PLATELET ESTIMATE NORMAL; TOTAL CELLS COUNTED 100
[2020-07-02 08:15] LABS: POLYCHROMASIA FEW; SMUDGE CELLS FEW; TOXIC GRANULATION 1+
[2020-07-02 08:16] LABS: POIKILOCYTOSIS FEW
[2020-07-02 08:18] LABS: BURR CELLS 1+
[2020-07-02] MEDS: folic acid 1mg/0.2ml inj IV SCH (08:48)
[2020-07-02] MEDS: famotidine/PF 10 mg/ml inj IV SCH ×2 (08:48→19:14)
[2020-07-02] MEDS: thiamine inj. 100 MG in normal saline 100ml IV soln 100 ML IV SCH (08:48)
[2020-07-02] MEDS: fluconazole/NS 400mg/200ml bag 200 ML IV SCH (11:30)
--- NOTE | 2020-07-02 12:56 | NUR ---
Trickle tube feeding started at 20 mls/hr with Vital AF via PEG tube per Dr Morrow
--- NOTE | 2020-07-02 12:59 | NUR ---
TF Consult: Trickle TF to start at 20ml/hr today since GI has been thoroughly examined during OR and intact w/ viable PEG in place per medical technologist clinical. To remain on TPN until EN tolerance and bowel function ensured per MD. TF recs below; will monitor for tolerance. Pt K 2.4 and Mg 1.4 today receiving replacements per protocol; likely not refeeding since has been on TPN for prolonged period. MARIA ALEJANDRA drain 2185 output past 24 hours w/ 765ml out so far today per I&O. Will continue to monitor. Recommendations: 1) Trickle PEG TF per MD using Vital AF at 20ml/hr goal; to provide 480ml volume, 389ml free water, 576kcals, and 36g protein. IF tolerating and to advance; recommend 65ml/hr goal rate. 2) 3:1 TPN using Clinimix E 12/12 with 100ml 20% intralipids at goal rate of 80 ml/hr will provide total 1791 calories, 91 g protein, 1920 ml volume, 4.04 mg/kg/min CHO loading. 3) TG/PALB Q /, daily wts 4) bowel care per rx 5) Monitor for EN tolerance; IF tolerating as EN advances consider weaning PN as medically indicated Addendum: 07/02/20 at [address] Amended: Links added.
[2020-07-02] MEDS: enoxaparin 40mg/0.4ml syringe SUBCUT SCH (20:15)
[2020-07-03] VITALS (27 sets, daily range): BP systolic 101–144; BP diastolic 45–75
[2020-07-03] MEDS: piperacillin/tazo 3.375gm/50ml 50 ML IV SCH ×3 (00:31→15:40)
[2020-07-03] MEDS: chlorhexidine gluconate 15ml Cup****oral rinse MM SCH ×3 (00:31→15:40)
[2020-07-03] MEDS: mineral oil/petrolatum ophthal oint EACHEYE SCH ×4 (03:16→20:27)
[2020-07-03 03:19] LABS: BASOPHILS # (AUTO) 0.1 X10'3 (0-0.2); BASOPHILS % (AUTO) 0.4 % (0-1); EOSINOPHILS # (AUTO) 0.3 X10'3 (0-0.9); EOSINOPHILS % (AUTO) 1.3 % (0-6); LYMPHOCYTES # (AUTO) 2.3 X10'3 (1.1-4.8); LYMPHOCYTES % (AUTO) 9.5 % (21-51); MEAN CORPUSCULAR HEMOGLOBIN 27.6 PG (27.0-31.0); MEAN CORPUSCULAR VOLUME 86.4 FL (78-98); MEAN PLATELET VOLUME 7.4 FL (7.4-10.4); MONOCYTES # (AUTO) 1.7 X10'3 (0-0.9); MONOCYTES % (AUTO) 6.7 % (2-12); NEUTROPHILS # (AUTO) 20.2 X10'3 (1.8-7.7); NEUTROPHILS % (AUTO) 82.1 % (42-75); PLATELET COUNT 405 X10'3 (140-440); RED BLOOD COUNT 2.52 X10'6 (4.20-5.60); RED CELL DISTRIBUTION WIDTH 17.6 % (11.5-14.5); WHITE BLOOD COUNT 24.6 X10'3 (4.5-11.0)
[2020-07-03] MEDS: ipratropium/albuterol 3ml nebule NEB SCH ×6 (03:27→23:13)
[2020-07-03 03:29] LABS: HEMATOCRIT 21.8 % (35.0-45.0)
[2020-07-03 03:31] LABS: ALANINE AMINOTRANSFERASE 61 U/L (12-78); ALBUMIN 1.5 G/DL (3.4-5.0); ALBUMIN/GLOBULIN RATIO 0.3 (1.1-1.5); ALKALINE PHOSPHATASE 101 IU/L (46-116); ANION GAP 10 (8-16); ASPARTATE AMINO TRANSFERASE 43 U/L (10-37); BILIRUBIN,TOTAL 1.9 MG/DL (0.1-1.0); BLOOD UREA NITROGEN 35 MG/DL (7-18); BUN/CREATININE RATIO 57.4 (6.6-38.0); CALCIUM 10.4 MG/DL (8.5-10.1); CHLORIDE 116 MMOL/L (99-107); CREATININE 0.61 MG/DL (0.40-0.90); GLUCOSE 129 MG/DL (70-104); MAGNESIUM 1.2 MG/DL (1.5-2.4); PHOSPHORUS 3.2 MG/DL (2.3-4.5); POTASSIUM 3.8 MMOL/L (3.5-5.1); SODIUM 144 MMOL/L (135-145); TOTAL CARBON DIOXIDE 18.2 MMOL/L (24-32); TOTAL PROTEIN 5.9 G/DL (6.4-8.2); eGFR > 90 ML/MIN
--- NOTE | 2020-07-03 03:38 | NUR ---
REY Palma aware of critically low Hgb of 7.0 and Hct 21.8. Pt is asymptomatic, will continue to monitor.
[2020-07-03 03:40] LABS: ABG BASE EXCESS -10.1 mmol/L (-2.0-2.0); ABG HCO3 15.8 mmol/L (22.0-26.0); ABG PCO2 (T) 33.7 mmHg (32.0-45.0); FCOHb 0.7 % (0.0-3.9); FMetHb 0.1 % (0.0-1.5); FO2Hb 97.2 % (94-97); PATIENT TEMPERATURE 36.5; PEEP 5 cm H2O; RESPIRATORY RATE 20 b/min; TIDAL VOLUME 400 mL; TOTAL HEMOGLOBIN 7.9 G/dl (12.0-16.0)
[2020-07-03] MEDS: FENTANYL-0.9 % NACL/PF 100 ML IV PRN ×3 (03:45→21:50)
[2020-07-03 04:27] LABS: ANISOCYTOSIS 1+; PLATELET ESTIMATE NORMAL; TOTAL CELLS COUNTED 100
[2020-07-03 04:28] LABS: ACANTHOCYTES FEW; POIKILOCYTOSIS 1+; POLYCHROMASIA FEW
[2020-07-03 04:29] LABS: BURR CELLS 1+; ROULEAUX 1+; TARGET CELLS 1+
[2020-07-03] MEDS: dexmedetomidine/D5W 100mL 100 ML IV PRN ×4 (04:29→21:49)
--- NOTE | 2020-07-03 06:41 | NUR ---
Problems reprioritized. Patient report given, questions answered & plan of care reviewed with CLEMENTE Allen.
[2020-07-03] MEDS: thiamine inj. 100 MG in normal saline 100ml IV soln 100 ML IV SCH (07:47)
[2020-07-03] MEDS: folic acid 1mg/0.2ml inj IV SCH (07:48)
[2020-07-03] MEDS: NYSTATIN CREAM - 30GM TUBE TP SCH ×2 (07:48→20:27)
[2020-07-03] MEDS: famotidine/PF 10 mg/ml inj IV SCH ×2 (07:48→20:27)
[2020-07-03] MEDS: fluconazole/NS 400mg/200ml bag 200 ML IV SCH (08:35)
[2020-07-03] MEDS: K, MAG and/or Phos replacement - Verify level? MC SCH (08:58)
[2020-07-03] MEDS ORDERED: ZINC IV SCH ×4 (09:00)
[2020-07-03] MEDS ORDERED: FAT EMULSION 20% IV SCH ×4 (09:00)
[2020-07-03] MEDS ORDERED: COPPER IV SCH ×4 (09:00)
[2020-07-03] MEDS ORDERED: SELENIUM IV SCH ×4 (09:00)
[2020-07-03] MEDS ORDERED: MANGANESE IV SCH ×4 (09:00)
[2020-07-03] MEDS ORDERED: [UNRECOGNIZED DRUG - OTHER] IV SCH ×4 (09:00)
[2020-07-03] MEDS: methylnaltrexone br 12mg/0.6ml inj***SubQ only SQ SCH (09:58)
[2020-07-03] MEDS: metoclopramide 5 mg/ml inj IV SCH ×2 (13:04→20:27)
--- NOTE | 2020-07-03 13:20 | NUR ---
TF leakage noted around PEG tube, Abdomen distended, Stopped the TF, called Dr. Rangel and Dr. Go. Per Dr. Rangel suctioned the 200 water flush given earlier and held the Tube feeding. .
[2020-07-03 13:56] LABS: HEMATOCRIT 25.6 % (35.0-45.0); HEMOGLOBIN 8.2 g/dl (12.0-16.0); MEAN CORPUSCULAR HEMOGLOBIN 27.6 PG (27.0-31.0); MEAN CORPUSCULAR HGB CONC 31.8 g/dL (33.0-36.5); MEAN CORPUSCULAR VOLUME 86.7 FL (78-98); MEAN PLATELET VOLUME 7.3 FL (7.4-10.4); PLATELET COUNT 417 X10'3 (140-440); RED BLOOD COUNT 2.96 X10'6 (4.20-5.60); RED CELL DISTRIBUTION WIDTH 16.6 % (11.5-14.5)
[2020-07-03 13:59] LABS: WHITE BLOOD COUNT 28.7 X10'3 (4.5-11.0)
--- NOTE | 2020-07-03 18:24 | NUR ---
Problems reprioritized. Patient report given, questions answered & plan of care reviewed with CLEMENTE Figueredo.
[2020-07-03] MEDS: enoxaparin 40mg/0.4ml syringe SUBCUT SCH (20:28)
[2020-07-04] VITALS (24 sets, daily range): BP systolic 90–138; BP diastolic 38–74
[2020-07-04] MEDS: mineral oil/petrolatum ophthal oint EACHEYE SCH ×4 (02:04→20:00)
[2020-07-04] MEDS: metoclopramide 5 mg/ml inj IV SCH ×4 (02:04→21:09)
[2020-07-04] MEDS: ipratropium/albuterol 3ml nebule NEB SCH ×6 (03:08→22:45)
[2020-07-04 03:35] LABS: BASOPHILS # (AUTO) 0.1 X10'3 (0-0.2); BASOPHILS % (AUTO) 0.4 % (0-1); EOSINOPHILS # (AUTO) 0.3 X10'3 (0-0.9); HEMATOCRIT 24.3 % (35.0-45.0); HEMOGLOBIN 7.9 g/dl (12.0-16.0); LYMPHOCYTES # (AUTO) 2.9 X10'3 (1.1-4.8); LYMPHOCYTES % (AUTO) 10.5 % (21-51); MEAN CORPUSCULAR HEMOGLOBIN 27.9 PG (27.0-31.0); MEAN CORPUSCULAR HGB CONC 32.5 g/dL (33.0-36.5); MEAN CORPUSCULAR VOLUME 85.7 FL (78-98); MEAN PLATELET VOLUME 7.3 FL (7.4-10.4); MONOCYTES # (AUTO) 1.8 X10'3 (0-0.9); MONOCYTES % (AUTO) 6.7 % (2-12); NEUTROPHILS # (AUTO) 22.4 X10'3 (1.8-7.7); NEUTROPHILS % (AUTO) 81.4 % (42-75); PLATELET COUNT 426 X10'3 (140-440); RED BLOOD COUNT 2.83 X10'6 (4.20-5.60); RED CELL DISTRIBUTION WIDTH 17.3 % (11.5-14.5)
[2020-07-04] MEDS: dexmedetomidine/D5W 100mL 100 ML IV PRN ×3 (03:35→21:39)
[2020-07-04 03:41] LABS: WHITE BLOOD COUNT 27.5 X10'3 (4.5-11.0)
[2020-07-04 04:01] LABS: ALANINE AMINOTRANSFERASE 60 U/L (12-78); ALBUMIN 1.5 G/DL (3.4-5.0); ALBUMIN/GLOBULIN RATIO 0.3 (1.1-1.5); ALKALINE PHOSPHATASE 116 IU/L (46-116); ANION GAP 12 (8-16); ASPARTATE AMINO TRANSFERASE 37 U/L (10-37); BILIRUBIN,TOTAL 2.1 MG/DL (0.1-1.0); BLOOD UREA NITROGEN 32 MG/DL (7-18); BUN/CREATININE RATIO 49.2 (6.6-38.0); CALCIUM 10.4 MG/DL (8.5-10.1); CHLORIDE 113 MMOL/L (99-107); CREATININE 0.65 MG/DL (0.40-0.90); GLUCOSE 125 MG/DL (70-104); MAGNESIUM 1.3 MG/DL (1.5-2.4); PHOSPHORUS 3.5 MG/DL (2.3-4.5); PREALBUMIN 8.9 MG/DL (19-36); SODIUM 145 MMOL/L (135-145); TOTAL CARBON DIOXIDE 20.1 MMOL/L (24-32); TOTAL PROTEIN 6.3 G/DL (6.4-8.2); TRIGLYCERIDES 131 MG/DL (20-135); eGFR > 90 ML/MIN
[2020-07-04 04:03] LABS: POTASSIUM 2.8 MMOL/L (3.5-5.1)
[2020-07-04] MEDS: potassium Cl 20mEq/100mL bag 100 ML IV PRN ×4 (04:07→11:02)
[2020-07-04 04:16] LABS: ABG BASE EXCESS -8.4 mmol/L (-2.0-2.0); ABG HCO3 16.1 mmol/L (22.0-26.0); ABG OXYGEN SATURATION 91.8 % (94-97); ABG PCO2 (T) 30.1 mmHg (32.0-45.0); ABG PO2 (T) 59.3 mmHg (75.0-100.0); FCOHb 0.5 % (0.0-3.9); FMetHb 0.1 % (0.0-1.5); FO2Hb 91.2 % (94-97); PATIENT TEMPERATURE 37.4; PEEP 5 cm H2O; RESPIRATORY RATE 20 b/min; TIDAL VOLUME 400 mL; TOTAL HEMOGLOBIN 8.7 G/dl (12.0-16.0)
[2020-07-04 05:12] LABS: PLATELET ESTIMATE NORMAL; TOTAL CELLS COUNTED 100
[2020-07-04 05:13] LABS: POLYCHROMASIA FEW; SCHISTOCYTES FEW; TARGET CELLS FEW
[2020-07-04 05:14] LABS: LARGE PLATELETS FEW; TOXIC GRANULATION 1+
[2020-07-04 05:15] LABS: TEAR DROP CELLS FEW
--- NOTE | 2020-07-04 06:25 | NUR ---
Patient in room ICU 2043. I have received report from CLEMENTE Figueredo and had the opportunity to ask questions and assume patient care. Patient asleep in bed and in no acute distress.
[2020-07-04] MEDS: piperacillin/tazo 3.375gm/50ml 50 ML IV SCH ×4 (07:13→23:48)
[2020-07-04] MEDS: thiamine inj. 100 MG in normal saline 100ml IV soln 100 ML IV SCH (07:13)
[2020-07-04] MEDS: chlorhexidine gluconate 15ml Cup****oral rinse MM SCH ×3 (07:13→15:44)
[2020-07-04] MEDS: folic acid 1mg/0.2ml inj IV SCH (07:13)
[2020-07-04] MEDS: famotidine/PF 10 mg/ml inj IV SCH ×2 (07:13→21:09)
[2020-07-04] MEDS: NYSTATIN CREAM - 30GM TUBE TP SCH ×2 (07:14→20:00)
[2020-07-04] MEDS: K, MAG and/or Phos replacement - Verify level? MC SCH (08:56)
[2020-07-04] MEDS: FENTANYL-0.9 % NACL/PF 100 ML IV PRN ×2 (09:43→20:32)
--- NOTE | 2020-07-04 12:13 | NUR ---
Reassessment: Pt trickle TF stopped r/t GRV 240-300's and only running at 20ml/hr; tolerating TPN at goal. LBM 12/ likely impacting EN tolerance; receiving routine relistor and reglan. K 2.8 receiving replacement though Mg 1.3; REBECCA d/w RN regarding mag replacement if MD agreeable. Likely not refeeding given consistent low K/Mg this admit and has received replacements along w/ hx nutrition support CLAIM INVESTIGATOR. PALB up to 8.9 from 6.9 prior. MARIA ALEJANDRA -2325ml out past 24 hours w/ over 2L output each day. Will continue to monitor for GI function return and nutrition support tolerance. Recommendations: 1) Once Trickle EN to resume; PEG TF per MD using Vital AF at 20ml/hr goal; to provide 480ml volume, 389ml free water, 576kcals, and 36g protein. IF tolerating and to advance; recommend 65ml/hr goal rate. 2) 3:1 TPN using Clinimix E 12/12 with 100ml 20% intralipids at goal rate of 80 ml/hr will provide total 1791 calories, 91 g protein, 1920 ml volume, 4.04 mg/kg/min CHO loading. 3) TG/PALB Q /, daily wts 4) routine bowel care; opioid antagonist and promotility agent per MD Addendum: 07/04/20 at [address] Amended: Links added.
[2020-07-04] MEDS: magnesium 2GM in 50ml NS 50 ML IV PRN (13:55)
[2020-07-04] MEDS ORDERED: MANGANESE IV SCH ×4 (18:00)
[2020-07-04] MEDS ORDERED: COPPER IV SCH ×4 (18:00)
[2020-07-04] MEDS ORDERED: SELENIUM IV SCH ×4 (18:00)
[2020-07-04] MEDS ORDERED: [UNRECOGNIZED DRUG - OTHER] IV SCH ×4 (18:00)
[2020-07-04] MEDS ORDERED: ZINC IV SCH ×4 (18:00)
[2020-07-04] MEDS ORDERED: FAT EMULSION 20% IV SCH ×4 (18:00)
--- NOTE | 2020-07-04 18:36 | NUR ---
Problems reprioritized. Patient report given, questions answered & plan of care reviewed with CLEMENTE Marroquin.
[2020-07-04] MEDS: lactobacillus rhamnosus 10,000 MMU CELLS/CAPSULE PO SCH (20:00)
[2020-07-04] MEDS: COPPER IV SCH ×4 (20:38)
[2020-07-04] MEDS: MANGANESE IV SCH ×4 (20:38)
[2020-07-04] MEDS: [UNRECOGNIZED DRUG - OTHER] IV SCH ×4 (20:38)
[2020-07-04] MEDS: SELENIUM IV SCH ×4 (20:38)
[2020-07-04] MEDS: ZINC IV SCH ×4 (20:38)
[2020-07-04] MEDS: FAT EMULSION 20% IV SCH ×4 (20:38)
[2020-07-04] MEDS: enoxaparin 40mg/0.4ml syringe SUBCUT SCH (21:33)
[2020-07-05] VITALS (23 sets, daily range): BP systolic 92–122; BP diastolic 46–69
[2020-07-05] MEDS: metoclopramide 5 mg/ml inj IV SCH ×4 (02:00→21:25)
[2020-07-05] MEDS: mineral oil/petrolatum ophthal oint EACHEYE SCH ×4 (02:00→20:00)
[2020-07-05 03:10] LABS: ABG BASE EXCESS -7.6 mmol/L (-2.0-2.0); ABG HCO3 16.9 mmol/L (22.0-26.0); ABG OXYGEN SATURATION 93.6 % (94-97); ABG PCO2 (T) 29.9 mmHg (32.0-45.0); FCOHb 0.6 % (0.0-3.9); FMetHb 0.3 % (0.0-1.5); FO2Hb 92.8 % (94-97); PATIENT TEMPERATURE 36.8; PEEP 5 cm H2O; RESPIRATORY RATE 20 b/min; TIDAL VOLUME 400 mL; TOTAL HEMOGLOBIN 8.2 G/dl (12.0-16.0)
[2020-07-05] MEDS: ipratropium/albuterol 3ml nebule NEB SCH ×6 (03:28→23:17)
[2020-07-05 03:34] LABS: BASOPHILS # (AUTO) 0.1 X10'3 (0-0.2); BASOPHILS % (AUTO) 0.5 % (0-1); EOSINOPHILS # (AUTO) 0.2 X10'3 (0-0.9); EOSINOPHILS % (AUTO) 0.8 % (0-6); HEMOGLOBIN 7.2 g/dl (12.0-16.0); LYMPHOCYTES # (AUTO) 2.8 X10'3 (1.1-4.8); LYMPHOCYTES % (AUTO) 11.3 % (21-51); MEAN CORPUSCULAR HEMOGLOBIN 28.2 PG (27.0-31.0); MEAN CORPUSCULAR HGB CONC 33.2 g/dL (33.0-36.5); MEAN PLATELET VOLUME 7.3 FL (7.4-10.4); MONOCYTES # (AUTO) 1.5 X10'3 (0-0.9); MONOCYTES % (AUTO) 6.2 % (2-12); NEUTROPHILS # (AUTO) 20.3 X10'3 (1.8-7.7); NEUTROPHILS % (AUTO) 81.2 % (42-75); PLATELET COUNT 414 X10'3 (140-440); RED BLOOD COUNT 2.54 X10'6 (4.20-5.60); RED CELL DISTRIBUTION WIDTH 16.9 % (11.5-14.5)
[2020-07-05 03:45] LABS: ALANINE AMINOTRANSFERASE 61 U/L (12-78); ALBUMIN 1.5 G/DL (3.4-5.0); ALBUMIN/GLOBULIN RATIO 0.3 (1.1-1.5); ALKALINE PHOSPHATASE 119 IU/L (46-116); ANION GAP 9 (8-16); ASPARTATE AMINO TRANSFERASE 45 U/L (10-37); BLOOD UREA NITROGEN 22 MG/DL (7-18); BUN/CREATININE RATIO 37.9 (6.6-38.0); CALCIUM 9.7 MG/DL (8.5-10.1); CHLORIDE 109 MMOL/L (99-107); CREATININE 0.58 MG/DL (0.40-0.90); GLUCOSE 106 MG/DL (70-104); MAGNESIUM 2.1 MG/DL (1.5-2.4); PHOSPHORUS 4.1 MG/DL (2.3-4.5); POTASSIUM 3.4 MMOL/L (3.5-5.1); SODIUM 139 MMOL/L (135-145); TOTAL CARBON DIOXIDE 20.7 MMOL/L (24-32); TOTAL PROTEIN 6.5 G/DL (6.4-8.2); eGFR > 90 ML/MIN
[2020-07-05 03:51] LABS: HEMATOCRIT 21.6 % (35.0-45.0)
--- NOTE | 2020-07-05 04:18 | NUR ---
Patient had a critical hematocrit, July Dorita LE was notified, She ordered a repeat hemogram and type and screen for 0800.
[2020-07-05] MEDS: potassium Cl 20mEq/100mL bag 100 ML IV PRN ×2 (05:08→08:34)
[2020-07-05 05:09] LABS: NUCLEATED RED BLOOD CELLS 1 /100WBC (0-0); PLATELET ESTIMATE NORMAL; TOTAL CELLS COUNTED 100
[2020-07-05 05:10] LABS: ANISOCYTOSIS 1+; TARGET CELLS 1+
[2020-07-05 05:11] LABS: POLYCHROMASIA FEW; TEAR DROP CELLS FEW
[2020-07-05 05:16] LABS: LARGE PLATELETS FEW; TOXIC GRANULATION 1+; TOXIC VACUOLATION 1+
[2020-07-05] MEDS: FENTANYL-0.9 % NACL/PF 100 ML IV PRN ×2 (06:41→17:11)
--- NOTE | 2020-07-05 06:51 | NUR ---
Patient in room ICU 2043. I have received report from CLEMENTE Marroquin and had the opportunity to ask questions and assume patient care.
[2020-07-05] MEDS: lactobacillus rhamnosus 10,000 MMU CELLS/CAPSULE PO SCH ×2 (08:00→20:00)
[2020-07-05 08:23] LABS: HEMATOCRIT 22.4 % (35.0-45.0); HEMOGLOBIN 7.4 g/dl (12.0-16.0); MEAN CORPUSCULAR HEMOGLOBIN 28.2 PG (27.0-31.0); MEAN CORPUSCULAR HGB CONC 32.8 g/dL (33.0-36.5); MEAN CORPUSCULAR VOLUME 85.9 FL (78-98); MEAN PLATELET VOLUME 7.1 FL (7.4-10.4); PLATELET COUNT 400 X10'3 (140-440); RED BLOOD COUNT 2.61 X10'6 (4.20-5.60); RED CELL DISTRIBUTION WIDTH 17.3 % (11.5-14.5)
[2020-07-05] MEDS: famotidine/PF 10 mg/ml inj IV SCH ×2 (08:31→21:33)
[2020-07-05] MEDS: piperacillin/tazo 3.375gm/50ml 50 ML IV SCH ×2 (08:32→16:21)
[2020-07-05] MEDS: chlorhexidine gluconate 15ml Cup****oral rinse MM SCH ×3 (08:32→16:21)
[2020-07-05] MEDS: thiamine inj. 100 MG in normal saline 100ml IV soln 100 ML IV SCH (08:32)
[2020-07-05] MEDS: methylnaltrexone br 12mg/0.6ml inj***SubQ only SQ SCH (08:32)
[2020-07-05] MEDS: folic acid 1mg/0.2ml inj IV SCH (08:35)
[2020-07-05 08:37] LABS: WHITE BLOOD COUNT 26.1 X10'3 (4.5-11.0)
[2020-07-05] MEDS: K, MAG and/or Phos replacement - Verify level? MC SCH (08:42)
--- NOTE | 2020-07-05 09:44 | NUR ---
0700 svn triaged-RT in ER
--- NOTE | 2020-07-05 09:57 | NUR ---
Per Dr Morrow's orders, DC both subclavian central line, and ART line.
[2020-07-05] MEDS: NYSTATIN CREAM - 30GM TUBE TP SCH ×2 (10:55→20:00)
[2020-07-05] MEDS: dexmedetomidine/D5W 100mL 100 ML IV PRN (11:14)
--- NOTE | 2020-07-05 11:30 | NUR ---
Removed L Femoral ART line and R subclavian central line, cannula intact, no complications. Will closely monitor for signs of bleeding.
--- NOTE | 2020-07-05 15:58 | NUR ---
SPOKE WITH VICKIE CORNEJO REGARDING ORDER FOR PICC, SHE STATES PICC IS WORKING, NO NEED FOR NEW PICC AT THIS TIME. CAITLYN PICC CLEMENTE
--- NOTE | 2020-07-05 18:11 | NUR ---
Problems reprioritized. Patient report given, questions answered & plan of care reviewed with CLEMENTE Marroquin. Pt resting comfortably, all pt needs met at this time.
[2020-07-05] MEDS: ZINC IV SCH ×4 (21:24)
[2020-07-05] MEDS: FAT EMULSION 20% IV SCH ×4 (21:24)
[2020-07-05] MEDS: [UNRECOGNIZED DRUG - OTHER] IV SCH ×4 (21:24)
[2020-07-05] MEDS: MANGANESE IV SCH ×4 (21:24)
[2020-07-05] MEDS: SELENIUM IV SCH ×4 (21:24)
[2020-07-05] MEDS: COPPER IV SCH ×4 (21:24)
[2020-07-05] MEDS: enoxaparin 40mg/0.4ml syringe SUBCUT SCH (21:34)
[2020-07-06] VITALS (24 sets, daily range): BP systolic 91–109; BP diastolic 49–64
[2020-07-06] MEDS: chlorhexidine gluconate 15ml Cup****oral rinse MM SCH ×3 (00:58→16:00)
[2020-07-06] MEDS: piperacillin/tazo 3.375gm/50ml 50 ML IV SCH ×3 (00:58→16:36)
[2020-07-06] MEDS: FENTANYL-0.9 % NACL/PF 100 ML IV PRN ×4 (00:59→23:29)
[2020-07-06] MEDS: ipratropium/albuterol 3ml nebule NEB SCH ×6 (02:27→23:31)
[2020-07-06] MEDS: dexmedetomidine/D5W 100mL 100 ML IV PRN ×2 (02:39→20:34)
[2020-07-06] MEDS: mineral oil/petrolatum ophthal oint EACHEYE SCH ×4 (02:43→20:00)
[2020-07-06] MEDS: metoclopramide 5 mg/ml inj IV SCH ×4 (03:12→21:12)
[2020-07-06 04:01] LABS: BASOPHILS # (AUTO) 0.1 X10'3 (0-0.2); BASOPHILS % (AUTO) 0.5 % (0-1); EOSINOPHILS # (AUTO) 0.3 X10'3 (0-0.9); EOSINOPHILS % (AUTO) 1.1 % (0-6); HEMATOCRIT 22.1 % (35.0-45.0); HEMOGLOBIN 7.1 g/dl (12.0-16.0); LYMPHOCYTES % (AUTO) 12.3 % (21-51); MEAN CORPUSCULAR HEMOGLOBIN 27.5 PG (27.0-31.0); MEAN CORPUSCULAR HGB CONC 32.1 g/dL (33.0-36.5); MEAN CORPUSCULAR VOLUME 85.8 FL (78-98); MEAN PLATELET VOLUME 7.1 FL (7.4-10.4); MONOCYTES # (AUTO) 1.2 X10'3 (0-0.9); MONOCYTES % (AUTO) 4.7 % (2-12); NEUTROPHILS # (AUTO) 20.2 X10'3 (1.8-7.7); NEUTROPHILS % (AUTO) 81.4 % (42-75); PLATELET COUNT 401 X10'3 (140-440); RED BLOOD COUNT 2.57 X10'6 (4.20-5.60); RED CELL DISTRIBUTION WIDTH 17.2 % (11.5-14.5); WHITE BLOOD COUNT 24.9 X10'3 (4.5-11.0)
[2020-07-06 04:07] LABS: ALANINE AMINOTRANSFERASE 55 U/L (12-78); ALBUMIN 1.4 G/DL (3.4-5.0); ALBUMIN/GLOBULIN RATIO 0.3 (1.1-1.5); ALKALINE PHOSPHATASE 115 IU/L (46-116); ANION GAP 9 (8-16); ASPARTATE AMINO TRANSFERASE 40 U/L (10-37); BILIRUBIN,TOTAL 1.9 MG/DL (0.1-1.0); BLOOD UREA NITROGEN 21 MG/DL (7-18); CALCIUM 9.3 MG/DL (8.5-10.1); CHLORIDE 109 MMOL/L (99-107); GLUCOSE 99 MG/DL (70-104); MAGNESIUM 1.7 MG/DL (1.5-2.4); PHOSPHORUS 3.3 MG/DL (2.3-4.5); POTASSIUM 3.2 MMOL/L (3.5-5.1); SODIUM 140 MMOL/L (135-145); TOTAL CARBON DIOXIDE 22.3 MMOL/L (24-32); TOTAL PROTEIN 6.5 G/DL (6.4-8.2); eGFR > 90 ML/MIN
[2020-07-06] MEDS: potassium Cl 20mEq/100mL bag 100 ML IV PRN ×2 (05:09→06:18)
[2020-07-06] MEDS: lactobacillus rhamnosus 10,000 MMU CELLS/CAPSULE PO SCH ×2 (08:00→20:00)
[2020-07-06] MEDS: K, MAG and/or Phos replacement - Verify level? MC SCH (08:00)
[2020-07-06] MEDS: famotidine/PF 10 mg/ml inj IV SCH ×2 (08:16→21:11)
[2020-07-06] MEDS: folic acid 1mg/0.2ml inj IV SCH (08:16)
[2020-07-06] MEDS: thiamine inj. 100 MG in normal saline 100ml IV soln 100 ML IV SCH (08:16)
[2020-07-06] MEDS: NYSTATIN CREAM - 30GM TUBE TP SCH ×2 (08:39→20:00)
[2020-07-06 10:40] LABS: TOTAL CELLS COUNTED 100
[2020-07-06 10:42] LABS: ANISOCYTOSIS 1+; HYPOCHROMASIA 1+; PLATELET ESTIMATE NORMAL; POLYCHROMASIA 1+; TARGET CELLS 1+; TEAR DROP CELLS FEW
[2020-07-06 15:35] LABS: ABG BASE EXCESS -5.3 mmol/L (-2.0-2.0); ABG HCO3 19.2 mmol/L (22.0-26.0); ABG OXYGEN SATURATION 95.9 % (94-97); ABG PCO2 (T) 33.4 mmHg (32.0-45.0); ABG PO2 (T) 78.8 mmHg (75.0-100.0); ALLEN'S TEST POSITIVE; FCOHb 0.6 % (0.0-3.9); FMetHb 0.3 % (0.0-1.5); PEEP 5 cm H2O; TOTAL HEMOGLOBIN 7.9 G/dl (12.0-16.0)
--- NOTE | 2020-07-06 18:28 | NUR ---
Problems reprioritized. Patient report given, questions answered & plan of care reviewed with CLEMENTE Marroquin.
[2020-07-06] MEDS: ZINC IV SCH ×4 (21:11)
[2020-07-06] MEDS: MANGANESE IV SCH ×4 (21:11)
[2020-07-06] MEDS: FAT EMULSION 20% IV SCH ×4 (21:11)
[2020-07-06] MEDS: COPPER IV SCH ×4 (21:11)
[2020-07-06] MEDS: SELENIUM IV SCH ×4 (21:11)
[2020-07-06] MEDS: [UNRECOGNIZED DRUG - OTHER] IV SCH ×4 (21:11)
[2020-07-06] MEDS: enoxaparin 40mg/0.4ml syringe SUBCUT SCH (21:12)
[2020-07-06] MEDS: diatr meglu/diatrizoate 30ml oral sol.-(3 dose) bottle PO SCH (21:21)
[2020-07-07] VITALS (24 sets, daily range): BP systolic 88–110; BP diastolic 46–63
[2020-07-07] MEDS: metoclopramide 5 mg/ml inj IV SCH ×4 (02:00→21:04)
[2020-07-07] MEDS: mineral oil/petrolatum ophthal oint EACHEYE SCH ×4 (02:00→19:30)
[2020-07-07] MEDS: ipratropium/albuterol 3ml nebule NEB SCH ×6 (03:06→23:22)
[2020-07-07 04:20] LABS: ALANINE AMINOTRANSFERASE 54 U/L (12-78); ALBUMIN 1.4 G/DL (3.4-5.0); ALBUMIN/GLOBULIN RATIO 0.3 (1.1-1.5); ALKALINE PHOSPHATASE 137 IU/L (46-116); ANION GAP 9 (8-16); ASPARTATE AMINO TRANSFERASE 40 U/L (10-37); BILIRUBIN,TOTAL 1.8 MG/DL (0.1-1.0); BLOOD UREA NITROGEN 20 MG/DL (7-18); BUN/CREATININE RATIO 40.8 (6.6-38.0); CALCIUM 9.3 MG/DL (8.5-10.1); CHLORIDE 107 MMOL/L (99-107); CREATININE 0.49 MG/DL (0.40-0.90); GLUCOSE 104 MG/DL (70-104); MAGNESIUM 1.5 MG/DL (1.5-2.4); PHOSPHORUS 3.2 MG/DL (2.3-4.5); POTASSIUM 3.3 MMOL/L (3.5-5.1); SODIUM 138 MMOL/L (135-145); TOTAL CARBON DIOXIDE 22.4 MMOL/L (24-32); TOTAL PROTEIN 6.6 G/DL (6.4-8.2); eGFR > 90 ML/MIN
[2020-07-07 04:33] LABS: BASOPHILS # (AUTO) 0.1 X10'3 (0-0.2); BASOPHILS % (AUTO) 0.4 % (0-1); EOSINOPHILS # (AUTO) 0.2 X10'3 (0-0.9); EOSINOPHILS % (AUTO) 0.7 % (0-6); LYMPHOCYTES # (AUTO) 2.4 X10'3 (1.1-4.8); LYMPHOCYTES % (AUTO) 8.5 % (21-51); MEAN CORPUSCULAR HEMOGLOBIN 27.9 PG (27.0-31.0); MEAN CORPUSCULAR HGB CONC 32.6 g/dL (33.0-36.5); MEAN CORPUSCULAR VOLUME 85.6 FL (78-98); MEAN PLATELET VOLUME 7.4 FL (7.4-10.4); MONOCYTES # (AUTO) 0.9 X10'3 (0-0.9); MONOCYTES % (AUTO) 3.3 % (2-12); NEUTROPHILS # (AUTO) 24.5 X10'3 (1.8-7.7); NEUTROPHILS % (AUTO) 87.1 % (42-75); PLATELET COUNT 401 X10'3 (140-440); RED BLOOD COUNT 2.52 X10'6 (4.20-5.60); RED CELL DISTRIBUTION WIDTH 17.5 % (11.5-14.5)
[2020-07-07 04:45] LABS: HEMATOCRIT 21.6 % (35.0-45.0); WHITE BLOOD COUNT 28.1 X10'3 (4.5-11.0)
[2020-07-07] MEDS: potassium Cl 20mEq/100mL bag 100 ML IV PRN ×2 (05:41→07:32)
--- NOTE | 2020-07-07 06:49 | NUR ---
Patient in room ICU 2043. I have received report from CLEMENTE Marroquin and had the opportunity to ask questions and assume patient care with walker Norman RN.
[2020-07-07 07:16] LABS: ANISOCYTOSIS 1+; PLATELET ESTIMATE NORMAL; TOTAL CELLS COUNTED 100
[2020-07-07 07:17] LABS: HYPOCHROMASIA 1+; POLYCHROMASIA 1+; TARGET CELLS 1+; TEAR DROP CELLS FEW
[2020-07-07] MEDS: diatr meglu/diatrizoate 30ml oral sol.-(3 dose) bottle PO SCH ×2 (07:32→21:00)
[2020-07-07] MEDS: famotidine/PF 10 mg/ml inj IV SCH ×2 (07:32→19:30)
[2020-07-07] MEDS: chlorhexidine gluconate 15ml Cup****oral rinse MM SCH ×3 (07:32→15:51)
[2020-07-07] MEDS: lactobacillus rhamnosus 10,000 MMU CELLS/CAPSULE PO SCH ×3 (07:33→20:00)
[2020-07-07] MEDS: methylnaltrexone br 12mg/0.6ml inj***SubQ only SQ SCH (07:40)
[2020-07-07] MEDS: folic acid 1mg/0.2ml inj IV SCH (07:47)
[2020-07-07] MEDS: K, MAG and/or Phos replacement - Verify level? MC SCH (07:51)
[2020-07-07] MEDS: NYSTATIN CREAM - 30GM TUBE TP SCH ×2 (07:51→19:31)
[2020-07-07 08:26] LABS: HEMOGLOBIN 7.6 g/dl (12.0-16.0); MEAN CORPUSCULAR HEMOGLOBIN 27.4 PG (27.0-31.0); MEAN CORPUSCULAR HGB CONC 31.7 g/dL (33.0-36.5); MEAN CORPUSCULAR VOLUME 86.3 FL (78-98); MEAN PLATELET VOLUME 7.4 FL (7.4-10.4); PLATELET COUNT 422 X10'3 (140-440); RED BLOOD COUNT 2.79 X10'6 (4.20-5.60); RED CELL DISTRIBUTION WIDTH 17.4 % (11.5-14.5)
[2020-07-07 08:30] LABS: WHITE BLOOD COUNT 28.5 X10'3 (4.5-11.0)
[2020-07-07] MEDS: thiamine inj. 100 MG in normal saline 100ml IV soln 100 ML IV SCH (09:14)
[2020-07-07] MEDS ORDERED: iohexol 300mg/ml 100ml inj. ONE (10:17)
[2020-07-07] MEDS: piperacillin/tazo 3.375gm/50ml 50 ML IV SCH ×3 (11:48→17:27)
--- NOTE | 2020-07-07 12:50 | NUR ---
F/u 07/07: Pt tolerating TPN at goal. Remains NPO s/p CT abdomen/pelvis today showing possible Ileus without complete blockage given contrast in colon/rectum, multiple abscesses w/ current drain only accessing one of these, and anasarca per EMR. Still no significant BM since 07/07 w/ pt abdomen distended per RN this AM. Receiving routine probiotic and relistor. Will monitor for new PALB tomorrow and additional protein needs post-op. To adjust PN as medically indicated. Recommendations: 1) Once Trickle EN to resume; PEG TF per MD using Vital AF at 20ml/hr goal; to provide 480ml volume, 389ml free water, 576kcals, and 36g protein. IF tolerating and to advance; recommend 65ml/hr goal rate. 2) 3:1 TPN using Clinimix E 12/12 with 100ml 20% intralipids at goal rate of 80 ml/hr will provide total 1791 calories, 91 g protein, 1920 ml volume, 4.04 mg/kg/min CHO loading. 3) TG/PALB Q /, daily wts 4) routine bowel care; opioid antagonist and promotility agent per MD 5) monitor for PN adjustment needs pending further PALB Addendum: 07/07/20 at [address] Amended: Links added.
[2020-07-07] MEDS: dexmedetomidine/D5W 100mL 100 ML IV PRN (12:53)
--- NOTE | 2020-07-07 14:17 | NUR ---
Minimal bleeding during dressing change. Wound care provided per orders.
[2020-07-07] MEDS: FENTANYL-0.9 % NACL/PF 100 ML IV PRN (17:27)
--- NOTE | 2020-07-07 18:20 | NUR ---
Patient in room ICU 2043. I have received report from Ester CORNEJO and had the opportunity to ask questions and assume patient care. Pt is wakeful. Tracheostomy to Vent AC PRVC mode FIO2 21% TV 400 tare 20 +5 PEEP. oxygen saturation is 100%. Observed RR 20-22/min., observed TV 226.Rhythm is sinus HR 6-87 BP 99/56. PICC line right upper arm with Clinimax 5/20 with intralipids. Laughlin cath drains clear yellow urine. No distress at shift change.
--- NOTE | 2020-07-07 18:21 | NUR ---
Problems reprioritized. Patient report given, questions answered & plan of care reviewed with Malena.
[2020-07-07] MEDS: SELENIUM IV SCH ×4 (19:30)
[2020-07-07] MEDS: [UNRECOGNIZED DRUG - OTHER] IV SCH ×4 (19:30)
[2020-07-07] MEDS: ZINC IV SCH ×4 (19:30)
[2020-07-07] MEDS: COPPER IV SCH ×4 (19:30)
[2020-07-07] MEDS: MANGANESE IV SCH ×4 (19:30)
[2020-07-07] MEDS: FAT EMULSION 20% IV SCH ×4 (19:30)
[2020-07-07] MEDS: enoxaparin 40mg/0.4ml syringe SUBCUT SCH (21:09)
[2020-07-08] VITALS (28 sets, daily range): BP systolic 95–121; BP diastolic 45–70
[2020-07-08] MEDS: piperacillin/tazo 3.375gm/50ml 50 ML IV SCH ×4 (02:02→23:46)
[2020-07-08] MEDS: mineral oil/petrolatum ophthal oint EACHEYE SCH ×5 (02:02→22:04)
[2020-07-08] MEDS: metoclopramide 5 mg/ml inj IV SCH ×4 (02:04→19:43)
[2020-07-08 02:54] LABS: BASOPHILS % (AUTO) 0.2 % (0-1); EOSINOPHILS # (AUTO) 0.2 X10'3 (0-0.9); EOSINOPHILS % (AUTO) 0.9 % (0-6); LYMPHOCYTES # (AUTO) 2.6 X10'3 (1.1-4.8); LYMPHOCYTES % (AUTO) 8.9 % (21-51); MEAN CORPUSCULAR HEMOGLOBIN 27.5 PG (27.0-31.0); MEAN CORPUSCULAR VOLUME 85.8 FL (78-98); MEAN PLATELET VOLUME 7.3 FL (7.4-10.4); MONOCYTES # (AUTO) 0.8 X10'3 (0-0.9); MONOCYTES % (AUTO) 2.7 % (2-12); NEUTROPHILS # (AUTO) 25.3 X10'3 (1.8-7.7); NEUTROPHILS % (AUTO) 87.3 % (42-75); PLATELET COUNT 425 X10'3 (140-440); RED BLOOD COUNT 2.43 X10'6 (4.20-5.60); RED CELL DISTRIBUTION WIDTH 17.5 % (11.5-14.5)
[2020-07-08 03:05] LABS: HEMOGLOBIN 6.7 g/dl (12.0-16.0)
[2020-07-08 03:06] LABS: HEMATOCRIT 20.8 % (35.0-45.0)
[2020-07-08 03:10] LABS: ALANINE AMINOTRANSFERASE 52 U/L (12-78); ALBUMIN 1.4 G/DL (3.4-5.0); ALBUMIN/GLOBULIN RATIO 0.3 (1.1-1.5); ALKALINE PHOSPHATASE 153 IU/L (46-116); ANION GAP 7 (8-16); ASPARTATE AMINO TRANSFERASE 38 U/L (10-37); BILIRUBIN,TOTAL 1.4 MG/DL (0.1-1.0); BLOOD UREA NITROGEN 19 MG/DL (7-18); CALCIUM 9.5 MG/DL (8.5-10.1); CHLORIDE 105 MMOL/L (99-107); GLUCOSE 106 MG/DL (70-104); MAGNESIUM 1.5 MG/DL (1.5-2.4); PHOSPHORUS 3.2 MG/DL (2.3-4.5); POTASSIUM 3.2 MMOL/L (3.5-5.1); PREALBUMIN 11.5 MG/DL (19-36); SODIUM 137 MMOL/L (135-145); TOTAL CARBON DIOXIDE 24.6 MMOL/L (24-32); TOTAL PROTEIN 6.6 G/DL (6.4-8.2); eGFR > 90 ML/MIN
--- NOTE | 2020-07-08 03:14 | NUR ---
Lab results called to REY Kevin. WBC's 29, H/H 6.7/20.8 K+ 3.2. Orders received for 1 unit PRBC.
[2020-07-08] MEDS: FENTANYL-0.9 % NACL/PF 100 ML IV PRN ×2 (03:21→21:00)
[2020-07-08] MEDS: ipratropium/albuterol 3ml nebule NEB SCH ×6 (03:33→23:15)
[2020-07-08] MEDS: potassium Cl 20mEq/100mL bag 100 ML IV SCH ×3 (03:35→17:37)
[2020-07-08] MEDS: potassium Cl 20mEq/100mL bag 100 ML IV PRN ×2 (03:55→05:03)
--- NOTE | 2020-07-08 06:00 | NUR ---
Oozing blood from lower abdominal wound. CLINICAL AUDIOLOGIST aware. Dressing reinforced.
[2020-07-08] MEDS: acetaminophen 650mg rectal suppository RC PRN ×2 (06:03→16:26)
--- NOTE | 2020-07-08 06:24 | NUR ---
Patient in room ICU 2043. I have received report from CLEMENTE Guy and had the opportunity to ask questions and assume patient care.
--- NOTE | 2020-07-08 06:24 | NUR ---
Problems reprioritized. Patient report given, questions answered & plan of care reviewed.
[2020-07-08] MEDS: K, MAG and/or Phos replacement - Verify level? MC SCH (07:23)
[2020-07-08] MEDS: famotidine/PF 10 mg/ml inj IV SCH ×2 (07:24→19:43)
[2020-07-08] MEDS: NYSTATIN CREAM - 30GM TUBE TP SCH ×2 (07:24→22:04)
[2020-07-08] MEDS: ondansetron/PF 4mg/2ml inj IV PRN (07:24)
[2020-07-08] MEDS: thiamine inj. 100 MG in normal saline 100ml IV soln 100 ML IV SCH (07:24)
[2020-07-08] MEDS: lactobacillus rhamnosus 10,000 MMU CELLS/CAPSULE PO SCH ×3 (07:24→20:00)
[2020-07-08] MEDS: folic acid 1mg/0.2ml inj IV SCH (07:30)
[2020-07-08] MEDS: chlorhexidine gluconate 15ml Cup****oral rinse MM SCH ×4 (07:31→23:45)
[2020-07-08] MEDS: dexmedetomidine/D5W 100mL 100 ML IV PRN ×2 (09:03→23:09)
[2020-07-08 09:57] LABS: TOTAL CELLS COUNTED 100
[2020-07-08 10:00] LABS: ANISOCYTOSIS 1+; ELLIPTOCYTES FEW; PLATELET ESTIMATE INCREASED; TARGET CELLS 1+; TEAR DROP CELLS FEW
[2020-07-08 10:13] LABS: TRIGLYCERIDES 130 MG/DL (20-135)
--- NOTE | 2020-07-08 13:25 | NUR ---
Problems reprioritized. Patient report given, questions answered & plan of care reviewed with CLEMENTE Pagan. Relayed info from Dr. Wong to Latasha that IR will be taking care of abscesses in abdomen. Informed current RN regarding Kynastons plan.
--- NOTE | 2020-07-08 18:29 | NUR ---
Problems reprioritized. Patient report given, questions answered & plan of care reviewed with Murray RN.
[2020-07-08] MEDS: SELENIUM IV SCH ×4 (21:45)
[2020-07-08] MEDS: MANGANESE IV SCH ×4 (21:45)
[2020-07-08] MEDS: [UNRECOGNIZED DRUG - OTHER] IV SCH ×4 (21:45)
[2020-07-08] MEDS: ZINC IV SCH ×4 (21:45)
[2020-07-08] MEDS: FAT EMULSION 20% IV SCH ×4 (21:45)
[2020-07-08] MEDS: COPPER IV SCH ×4 (21:45)
[2020-07-08] MEDS: enoxaparin 40mg/0.4ml syringe SUBCUT SCH (21:58)
[2020-07-09] VITALS (31 sets, daily range): BP systolic 90–143; BP diastolic 46–96
[2020-07-09] MEDS: metoclopramide 5 mg/ml inj IV SCH ×4 (02:09→20:11)
[2020-07-09] MEDS: ipratropium/albuterol 3ml nebule NEB SCH ×6 (02:53→23:16)
[2020-07-09 03:25] LABS: BASOPHILS # (AUTO) 0.1 X10'3 (0-0.2); BASOPHILS % (AUTO) 0.2 % (0-1); EOSINOPHILS # (AUTO) 0.1 X10'3 (0-0.9); EOSINOPHILS % (AUTO) 0.5 % (0-6); HEMATOCRIT 24.1 % (35.0-45.0); LYMPHOCYTES # (AUTO) 2.2 X10'3 (1.1-4.8); LYMPHOCYTES % (AUTO) 7.1 % (21-51); MEAN CORPUSCULAR HEMOGLOBIN 28.9 PG (27.0-31.0); MEAN CORPUSCULAR HGB CONC 33.1 g/dL (33.0-36.5); MEAN CORPUSCULAR VOLUME 87.4 FL (78-98); MEAN PLATELET VOLUME 7.3 FL (7.4-10.4); MONOCYTES # (AUTO) 0.7 X10'3 (0-0.9); MONOCYTES % (AUTO) 2.2 % (2-12); NEUTROPHILS # (AUTO) 28.6 X10'3 (1.8-7.7); PLATELET COUNT 420 X10'3 (140-440); RED BLOOD COUNT 2.76 X10'6 (4.20-5.60); RED CELL DISTRIBUTION WIDTH 17.1 % (11.5-14.5)
[2020-07-09 03:42] LABS: WHITE BLOOD COUNT 31.8 X10'3 (4.5-11.0)
[2020-07-09 03:51] LABS: ALANINE AMINOTRANSFERASE 50 U/L (12-78); ALBUMIN 1.5 G/DL (3.4-5.0); ALBUMIN/GLOBULIN RATIO 0.3 (1.1-1.5); ALKALINE PHOSPHATASE 180 IU/L (46-116); ANION GAP 6 (8-16); ASPARTATE AMINO TRANSFERASE 30 U/L (10-37); BILIRUBIN,TOTAL 1.2 MG/DL (0.1-1.0); BLOOD UREA NITROGEN 18 MG/DL (7-18); BUN/CREATININE RATIO 35.3 (6.6-38.0); CALCIUM 9.7 MG/DL (8.5-10.1); CHLORIDE 103 MMOL/L (99-107); CREATININE 0.51 MG/DL (0.40-0.90); GLUCOSE 104 MG/DL (70-104); MAGNESIUM 1.5 MG/DL (1.5-2.4); PHOSPHORUS 3.3 MG/DL (2.3-4.5); POTASSIUM 3.3 MMOL/L (3.5-5.1); SODIUM 135 MMOL/L (135-145); TOTAL CARBON DIOXIDE 25.7 MMOL/L (24-32); TOTAL PROTEIN 7.1 G/DL (6.4-8.2); eGFR > 90 ML/MIN
[2020-07-09 03:52] LABS: ANISOCYTOSIS 2+; PLATELET ESTIMATE NORMAL; TOTAL CELLS COUNTED 100
[2020-07-09] MEDS: potassium Cl 20mEq/100mL bag 100 ML IV PRN ×2 (04:22→05:44)
--- NOTE | 2020-07-09 06:00 | NUR ---
Problems reprioritized. Patient report given, questions answered & plan of care reviewed with Bob CORNEJO.
--- NOTE | 2020-07-09 06:14 | NUR ---
Patient in room ICU 2043. I have received report from Latasha CORNEJO and had the opportunity to ask questions and assume patient care.
--- NOTE | 2020-07-09 06:14 | NUR ---
Problems reprioritized. Patient report given, questions answered & plan of care reviewed with Belkys CORNEJO.
--- NOTE | 2020-07-09 06:41 | NUR ---
I have reviewed Ryder CORNEJO charting and I agree.
[2020-07-09] MEDS: piperacillin/tazo 3.375gm/50ml 50 ML IV SCH ×3 (07:37→23:45)
[2020-07-09] MEDS: chlorhexidine gluconate 15ml Cup****oral rinse MM SCH ×3 (07:37→23:45)
[2020-07-09] MEDS: lactobacillus rhamnosus 10,000 MMU CELLS/CAPSULE PO SCH ×2 (07:37→20:00)
[2020-07-09] MEDS: folic acid 1mg/0.2ml inj IV SCH (07:37)
[2020-07-09] MEDS: famotidine/PF 10 mg/ml inj IV SCH ×2 (07:37→20:11)
[2020-07-09] MEDS: thiamine inj. 100 MG in normal saline 100ml IV soln 100 ML IV SCH (07:38)
[2020-07-09] MEDS: methylnaltrexone br 12mg/0.6ml inj***SubQ only SQ SCH (07:38)
[2020-07-09] MEDS: NYSTATIN CREAM - 30GM TUBE TP SCH ×2 (07:38→23:27)
[2020-07-09] MEDS: mineral oil/petrolatum ophthal oint EACHEYE SCH ×3 (07:38→20:00)
[2020-07-09] MEDS: K, MAG and/or Phos replacement - Verify level? MC SCH (08:00)
[2020-07-09] MEDS: acetaminophen 650mg rectal suppository RC PRN (11:37)
[2020-07-09] MEDS: FENTANYL-0.9 % NACL/PF 100 ML IV PRN (12:41)
--- NOTE | 2020-07-09 13:12 | NUR ---
Pt taken to CT for drain placement by MARY KAY
--- NOTE | 2020-07-09 14:45 | NUR ---
Pt returned from CT with one MARIA ALEJANDRA drain placement to left abd. Abd dsg removed during procedure. Redressed as soon as pt got back. Pt alert, oriented, and stable
[2020-07-09] MEDS: dexmedetomidine/D5W 100mL 100 ML IV PRN (18:27)
--- NOTE | 2020-07-09 18:30 | NUR ---
Patient in room ICU 2043. I have received report from Belkys CORNEJO and had the opportunity to ask questions and assume patient care.
[2020-07-09] MEDS: enoxaparin 40mg/0.4ml syringe SUBCUT SCH (20:12)
[2020-07-09] MEDS: MANGANESE IV SCH ×4 (23:30)
[2020-07-09] MEDS: SELENIUM IV SCH ×4 (23:30)
[2020-07-09] MEDS: FAT EMULSION 20% IV SCH ×4 (23:30)
[2020-07-09] MEDS: [UNRECOGNIZED DRUG - OTHER] IV SCH ×4 (23:30)
[2020-07-09] MEDS: ZINC IV SCH ×4 (23:30)
[2020-07-09] MEDS: COPPER IV SCH ×4 (23:30)
[2020-07-10] VITALS (24 sets, daily range): BP systolic 94–113; BP diastolic 49–72
[2020-07-10] MEDS: mineral oil/petrolatum ophthal oint EACHEYE SCH ×4 (01:48→21:24)
[2020-07-10] MEDS: metoclopramide 5 mg/ml inj IV SCH ×4 (01:49→21:23)
[2020-07-10 02:24] LABS: BASOPHILS # (AUTO) 0.1 X10'3 (0-0.2); BASOPHILS % (AUTO) 0.4 % (0-1); EOSINOPHILS # (AUTO) 0.2 X10'3 (0-0.9); EOSINOPHILS % (AUTO) 0.9 % (0-6); LYMPHOCYTES # (AUTO) 1.5 X10'3 (1.1-4.8); LYMPHOCYTES % (AUTO) 5.7 % (21-51); MEAN PLATELET VOLUME 7.4 FL (7.4-10.4); MONOCYTES # (AUTO) 0.8 X10'3 (0-0.9); MONOCYTES % (AUTO) 3.1 % (2-12); NEUTROPHILS # (AUTO) 23.1 X10'3 (1.8-7.7); NEUTROPHILS % (AUTO) 89.9 % (42-75); PLATELET COUNT 385 X10'3 (140-440); RED CELL DISTRIBUTION WIDTH 18.6 % (11.5-14.5)
[2020-07-10 02:40] LABS: ALANINE AMINOTRANSFERASE 45 U/L (12-78); ALBUMIN 1.2 G/DL (3.4-5.0); ALBUMIN/GLOBULIN RATIO 0.2 (1.1-1.5); ALKALINE PHOSPHATASE 159 IU/L (46-116); ANION GAP 6 (8-16); ASPARTATE AMINO TRANSFERASE 41 U/L (10-37); BLOOD UREA NITROGEN 17 MG/DL (7-18); CALCIUM 8.1 MG/DL (8.5-10.1); CHLORIDE 93 MMOL/L (99-107); MAGNESIUM 1.4 MG/DL (1.5-2.4); PHOSPHORUS 2.8 MG/DL (2.3-4.5); SODIUM 123 MMOL/L (135-145); TOTAL CARBON DIOXIDE 23.6 MMOL/L (24-32); TOTAL PROTEIN 6.4 G/DL (6.4-8.2); eGFR 67 ML/MIN
[2020-07-10 02:46] LABS: HEMATOCRIT 23.6 % (35.0-45.0); HEMOGLOBIN 7.8 g/dl (12.0-16.0); MEAN CORPUSCULAR HEMOGLOBIN 30.7 PG (27.0-31.0); MEAN CORPUSCULAR HGB CONC 33.3 g/dL (33.0-36.5); MEAN CORPUSCULAR VOLUME 92.2 FL (78-98); RED BLOOD COUNT 2.56 X10'6 (4.20-5.60)
[2020-07-10 02:48] LABS: WHITE BLOOD COUNT 25.7 X10'3 (4.5-11.0)
[2020-07-10 02:57] LABS: POTASSIUM 2.7 MMOL/L (3.5-5.1)
[2020-07-10 02:58] LABS: GLUCOSE 1530 MG/DL (70-104)
[2020-07-10] MEDS: FENTANYL-0.9 % NACL/PF 100 ML IV PRN ×3 (03:27→19:30)
[2020-07-10 03:35] LABS: ALANINE AMINOTRANSFERASE 52 U/L (12-78); ALBUMIN 1.5 G/DL (3.4-5.0); ALBUMIN/GLOBULIN RATIO 0.3 (1.1-1.5); ALKALINE PHOSPHATASE 183 IU/L (46-116); ANION GAP 8 (8-16); ASPARTATE AMINO TRANSFERASE 42 U/L (10-37); BILIRUBIN,TOTAL 1.2 MG/DL (0.1-1.0); BLOOD UREA NITROGEN 18 MG/DL (7-18); CALCIUM 9.2 MG/DL (8.5-10.1); CHLORIDE 103 MMOL/L (99-107); CREATININE 0.45 MG/DL (0.40-0.90); GLUCOSE 103 MG/DL (70-104); POTASSIUM 3.3 MMOL/L (3.5-5.1); SODIUM 137 MMOL/L (135-145); TOTAL CARBON DIOXIDE 26.3 MMOL/L (24-32); TOTAL PROTEIN 7.2 G/DL (6.4-8.2); eGFR > 90 ML/MIN
[2020-07-10] MEDS: ipratropium/albuterol 3ml nebule NEB SCH ×6 (03:43→23:09)
--- NOTE | 2020-07-10 03:45 | NUR ---
Critical WBC Level of 25.7, July Dorita notified @0250, no new orders
[2020-07-10] MEDS: potassium Cl 20mEq/100mL bag 100 ML IV PRN (05:15)
--- NOTE | 2020-07-10 06:23 | NUR ---
I have reviewed Ryder CORNEJO charting and I agree.
--- NOTE | 2020-07-10 06:23 | NUR ---
Problems reprioritized. Patient report given, questions answered & plan of care reviewed with Bob CORNEJO.
[2020-07-10] MEDS: famotidine/PF 10 mg/ml inj IV SCH ×2 (09:18→21:23)
[2020-07-10] MEDS: folic acid 1mg/0.2ml inj IV SCH (09:18)
[2020-07-10] MEDS: chlorhexidine gluconate 15ml Cup****oral rinse MM SCH ×2 (09:18→16:09)
[2020-07-10] MEDS: thiamine inj. 100 MG in normal saline 100ml IV soln 100 ML IV SCH (09:19)
[2020-07-10] MEDS: lactobacillus rhamnosus 10,000 MMU CELLS/CAPSULE PO SCH ×2 (09:48→20:00)
[2020-07-10] MEDS: NYSTATIN CREAM - 30GM TUBE TP SCH ×2 (09:48→21:23)
[2020-07-10] MEDS: K, MAG and/or Phos replacement - Verify level? MC SCH (09:48)
[2020-07-10] MEDS: piperacillin/tazo 3.375gm/50ml 50 ML IV SCH ×2 (09:49→16:09)
[2020-07-10] MEDS: magnesium 2GM in 50ml NS 50 ML IV PRN (09:54)
--- NOTE | 2020-07-10 11:29 | NUR ---
F/u 07/10: Pt tolerating TPN s/p additional MARIA ALEJANDRA drain placement by IR for additional abdomen/pelvis abscess; still concern for GI leak to remain NPO per MD. Glu 1500 error drawn from TPN PICC w/ following Glu WNL. Will continue to monitor. Recommendations: 1) Once Trickle EN to resume; PEG TF per MD using Vital AF at 20ml/hr goal; to provide 480ml volume, 389ml free water, 576kcals, and 36g protein. IF tolerating and to advance; recommend 65ml/hr goal rate. 2) 3:1 TPN using Clinimix E 12/12 with 100ml 20% intralipids at goal rate of 80 ml/hr will provide total 1791 calories, 91 g protein, 1920 ml volume, 4.04 mg/kg/min CHO loading. 3) TG/PALB Q /, daily wts 4) routine bowel care; opioid antagonist and promotility agent per MD 5) monitor for PN adjustment needs pending further PALB Addendum: 07/10/20 at [address] Amended: Links added.
[2020-07-10] MEDS: dexmedetomidine/D5W 100mL 100 ML IV PRN (14:07)
--- NOTE | 2020-07-10 18:12 | NUR ---
Problems reprioritized. Patient report given, questions answered & plan of care reviewed with Lily CORNEJO.
[2020-07-10] MEDS: enoxaparin 40mg/0.4ml syringe SUBCUT SCH (21:23)
[2020-07-10] MEDS: [UNRECOGNIZED DRUG - OTHER] IV SCH ×4 (21:24)
[2020-07-10] MEDS: FAT EMULSION 20% IV SCH ×4 (21:24)
[2020-07-10] MEDS: COPPER IV SCH ×4 (21:24)
[2020-07-10] MEDS: SELENIUM IV SCH ×4 (21:24)
[2020-07-10] MEDS: MANGANESE IV SCH ×4 (21:24)
[2020-07-10] MEDS: ZINC IV SCH ×4 (21:24)
[2020-07-11] VITALS (23 sets, daily range): BP systolic 99–118; BP diastolic 51–69
[2020-07-11] MEDS: chlorhexidine gluconate 15ml Cup****oral rinse MM SCH ×3 (01:00→16:23)
[2020-07-11] MEDS: piperacillin/tazo 3.375gm/50ml 50 ML IV SCH ×3 (01:00→16:23)
[2020-07-11] MEDS: mineral oil/petrolatum ophthal oint EACHEYE SCH ×4 (01:00→19:35)
[2020-07-11] MEDS: metoclopramide 5 mg/ml inj IV SCH ×4 (01:04→19:34)
[2020-07-11 02:42] LABS: BASOPHILS # (AUTO) 0.1 X10'3 (0-0.2); BASOPHILS % (AUTO) 0.2 % (0-1); EOSINOPHILS # (AUTO) 0.3 X10'3 (0-0.9); EOSINOPHILS % (AUTO) 1.4 % (0-6); HEMATOCRIT 22.6 % (35.0-45.0); HEMOGLOBIN 7.4 g/dl (12.0-16.0); LYMPHOCYTES # (AUTO) 1.5 X10'3 (1.1-4.8); LYMPHOCYTES % (AUTO) 6.2 % (21-51); MEAN CORPUSCULAR HEMOGLOBIN 28.5 PG (27.0-31.0); MEAN CORPUSCULAR HGB CONC 32.7 g/dL (33.0-36.5); MEAN PLATELET VOLUME 7.2 FL (7.4-10.4); MONOCYTES # (AUTO) 1.1 X10'3 (0-0.9); MONOCYTES % (AUTO) 4.5 % (2-12); NEUTROPHILS % (AUTO) 87.7 % (42-75); PLATELET COUNT 427 X10'3 (140-440); RED CELL DISTRIBUTION WIDTH 16.9 % (11.5-14.5); WHITE BLOOD COUNT 23.9 X10'3 (4.5-11.0)
[2020-07-11 03:01] LABS: ALANINE AMINOTRANSFERASE 49 U/L (12-78); ALBUMIN 1.4 G/DL (3.4-5.0); ALBUMIN/GLOBULIN RATIO 0.2 (1.1-1.5); ALKALINE PHOSPHATASE 174 IU/L (46-116); ANION GAP 8 (8-16); ASPARTATE AMINO TRANSFERASE 39 U/L (10-37); BILIRUBIN,TOTAL 1.1 MG/DL (0.1-1.0); BLOOD UREA NITROGEN 18 MG/DL (7-18); BUN/CREATININE RATIO 39.1 (6.6-38.0); CALCIUM 9.4 MG/DL (8.5-10.1); CHLORIDE 102 MMOL/L (99-107); CREATININE 0.46 MG/DL (0.40-0.90); GLUCOSE 110 MG/DL (70-104); MAGNESIUM 1.9 MG/DL (1.5-2.4); PHOSPHORUS 3.2 MG/DL (2.3-4.5); POTASSIUM 3.3 MMOL/L (3.5-5.1); SODIUM 137 MMOL/L (135-145); TOTAL CARBON DIOXIDE 27.2 MMOL/L (24-32); TOTAL PROTEIN 7.1 G/DL (6.4-8.2); TRIGLYCERIDES 111 MG/DL (20-135); eGFR > 90 ML/MIN
[2020-07-11] MEDS: ipratropium/albuterol 3ml nebule NEB SCH ×6 (03:12→23:33)
[2020-07-11] MEDS: potassium Cl 20mEq/100mL bag 100 ML IV PRN ×2 (06:46→08:12)
[2020-07-11] MEDS: K, MAG and/or Phos replacement - Verify level? MC SCH (08:00)
[2020-07-11] MEDS: lactobacillus rhamnosus 10,000 MMU CELLS/CAPSULE PO SCH ×2 (08:00→19:34)
[2020-07-11] MEDS: folic acid 1mg/0.2ml inj IV SCH (08:11)
[2020-07-11] MEDS: thiamine inj. 100 MG in normal saline 100ml IV soln 100 ML IV SCH (08:11)
[2020-07-11] MEDS: dexmedetomidine/D5W 100mL 100 ML IV PRN (08:12)
[2020-07-11] MEDS: methylnaltrexone br 12mg/0.6ml inj***SubQ only SQ SCH (08:13)
[2020-07-11] MEDS: NYSTATIN CREAM - 30GM TUBE TP SCH ×2 (08:13→19:35)
[2020-07-11] MEDS: famotidine/PF 10 mg/ml inj IV SCH ×2 (08:13→19:34)
[2020-07-11] MEDS: FENTANYL-0.9 % NACL/PF 100 ML IV PRN (12:05)
[2020-07-11] MEDS: SELENIUM IV SCH ×4 (21:48)
[2020-07-11] MEDS: COPPER IV SCH ×4 (21:48)
[2020-07-11] MEDS: FAT EMULSION 20% IV SCH ×4 (21:48)
[2020-07-11] MEDS: [UNRECOGNIZED DRUG - OTHER] IV SCH ×4 (21:48)
[2020-07-11] MEDS: ZINC IV SCH ×4 (21:48)
[2020-07-11] MEDS: MANGANESE IV SCH ×4 (21:48)
[2020-07-11] MEDS: enoxaparin 40mg/0.4ml syringe SUBCUT SCH (21:50)
[2020-07-12] VITALS (23 sets, daily range): BP systolic 94–123; BP diastolic 55–72
--- NOTE | 2020-07-12 00:48 | NUR ---
RN discussed with charge nurse regarding increased urine out put, SIRS criteria and possible early SS of septic shock. Will draw labs and reevaluate.
[2020-07-12] MEDS: chlorhexidine gluconate 15ml Cup****oral rinse MM SCH ×4 (00:56→23:54)
[2020-07-12] MEDS: piperacillin/tazo 3.375gm/50ml 50 ML IV SCH ×4 (00:56→23:54)
[2020-07-12 01:36] LABS: BASOPHILS # (AUTO) 0.1 X10'3 (0-0.2); BASOPHILS % (AUTO) 0.5 % (0-1); EOSINOPHILS # (AUTO) 0.2 X10'3 (0-0.9); EOSINOPHILS % (AUTO) 1.2 % (0-6); HEMOGLOBIN 7.2 g/dl (12.0-16.0); LYMPHOCYTES # (AUTO) 1.4 X10'3 (1.1-4.8); LYMPHOCYTES % (AUTO) 6.5 % (21-51); MEAN CORPUSCULAR HEMOGLOBIN 29.4 PG (27.0-31.0); MEAN CORPUSCULAR VOLUME 86.6 FL (78-98); MONOCYTES # (AUTO) 0.9 X10'3 (0-0.9); MONOCYTES % (AUTO) 4.3 % (2-12); NEUTROPHILS # (AUTO) 18.3 X10'3 (1.8-7.7); NEUTROPHILS % (AUTO) 87.5 % (42-75); PLATELET COUNT 444 X10'3 (140-440); RED BLOOD COUNT 2.44 X10'6 (4.20-5.60); RED CELL DISTRIBUTION WIDTH 16.6 % (11.5-14.5); WHITE BLOOD COUNT 20.9 X10'3 (4.5-11.0)
[2020-07-12 01:38] LABS: HEMATOCRIT 21.1 % (35.0-45.0)
[2020-07-12 01:51] LABS: ALANINE AMINOTRANSFERASE 49 U/L (12-78); ALBUMIN 1.5 G/DL (3.4-5.0); ALBUMIN/GLOBULIN RATIO 0.3 (1.1-1.5); ALKALINE PHOSPHATASE 187 IU/L (46-116); ANION GAP 6 (8-16); ASPARTATE AMINO TRANSFERASE 36 U/L (10-37); BILIRUBIN,TOTAL 1.2 MG/DL (0.1-1.0); BLOOD UREA NITROGEN 15 MG/DL (7-18); BUN/CREATININE RATIO 30.6 (6.6-38.0); CALCIUM 9.3 MG/DL (8.5-10.1); CHLORIDE 102 MMOL/L (99-107); CREATININE 0.49 MG/DL (0.40-0.90); GLUCOSE 104 MG/DL (70-104); MAGNESIUM 1.6 MG/DL (1.5-2.4); PHOSPHORUS 3.1 MG/DL (2.3-4.5); POTASSIUM 3.3 MMOL/L (3.5-5.1); SODIUM 137 MMOL/L (135-145); TOTAL PROTEIN 7.4 G/DL (6.4-8.2); eGFR > 90 ML/MIN
[2020-07-12] MEDS: mineral oil/petrolatum ophthal oint EACHEYE SCH ×4 (02:00→19:32)
[2020-07-12] MEDS: FENTANYL-0.9 % NACL/PF 100 ML IV PRN ×2 (02:18→15:46)
--- NOTE | 2020-07-12 02:26 | NUR ---
RN notifies Trey LE regarding critial lab value, Hct 21.1. RN discussed increased UOP average 180ml/hr since start of shift and possible early SS sepsis. Hemodynamics currently stable, RN continues to monitor, no new orders at this time.
[2020-07-12] MEDS: ipratropium/albuterol 3ml nebule NEB SCH ×6 (03:39→22:54)
[2020-07-12] MEDS: dexmedetomidine/D5W 100mL 100 ML IV PRN ×2 (04:10→19:17)
[2020-07-12] MEDS: metoclopramide 5 mg/ml inj IV SCH ×4 (04:20→19:31)
[2020-07-12] MEDS: potassium Cl 20mEq/100mL bag 100 ML IV PRN ×2 (05:57→14:46)
--- NOTE | 2020-07-12 06:22 | NUR ---
Report given to Danay CORNEJO. Current treatment and POC discussed, transferred care.
[2020-07-12] MEDS: lactobacillus rhamnosus 10,000 MMU CELLS/CAPSULE PO SCH ×2 (08:00→19:31)
[2020-07-12] MEDS: K, MAG and/or Phos replacement - Verify level? MC SCH (08:00)
[2020-07-12] MEDS: thiamine inj. 100 MG in normal saline 100ml IV soln 100 ML IV SCH (08:42)
[2020-07-12] MEDS: NYSTATIN CREAM - 30GM TUBE TP SCH ×2 (08:43→19:32)
[2020-07-12] MEDS: famotidine/PF 10 mg/ml inj IV SCH ×2 (08:43→19:31)
[2020-07-12] MEDS: gabapentin 100mg capsule PO SCH ×2 (10:53→20:06)
[2020-07-12] MEDS: folic acid 1mg/0.2ml inj IV SCH (11:32)
[2020-07-12] MEDS: ondansetron/PF 4mg/2ml inj IV PRN (18:57)
[2020-07-12] MEDS: acetaminophen 650mg rectal suppository RC PRN (19:31)
[2020-07-12] MEDS: enoxaparin 40mg/0.4ml syringe SUBCUT SCH (20:06)
[2020-07-12] MEDS: COPPER IV SCH ×4 (21:00)
[2020-07-12] MEDS: MANGANESE IV SCH ×4 (21:00)
[2020-07-12] MEDS: ZINC IV SCH ×4 (21:00)
[2020-07-12] MEDS: FAT EMULSION 20% IV SCH ×4 (21:00)
[2020-07-12] MEDS: SELENIUM IV SCH ×4 (21:00)
[2020-07-12] MEDS: [UNRECOGNIZED DRUG - OTHER] IV SCH ×4 (21:00)
[2020-07-13] VITALS (28 sets, daily range): BP systolic 105–134; BP diastolic 52–87
[2020-07-13] MEDS ORDERED: acetaminophen 1,000mg/100ml IV 100 ML IV PRN (01:00)
[2020-07-13] MEDS: metoclopramide 5 mg/ml inj IV SCH ×4 (02:24→20:17)
[2020-07-13] MEDS: mineral oil/petrolatum ophthal oint EACHEYE SCH ×4 (02:24→20:18)
[2020-07-13 02:59] LABS: BASOPHILS # (AUTO) 0.1 X10'3 (0-0.2); BASOPHILS % (AUTO) 0.3 % (0-1); EOSINOPHILS # (AUTO) 0.3 X10'3 (0-0.9); EOSINOPHILS % (AUTO) 1.5 % (0-6); LYMPHOCYTES # (AUTO) 1.5 X10'3 (1.1-4.8); LYMPHOCYTES % (AUTO) 7.3 % (21-51); MEAN CORPUSCULAR HEMOGLOBIN 27.7 PG (27.0-31.0); MEAN CORPUSCULAR HGB CONC 31.9 g/dL (33.0-36.5); MEAN CORPUSCULAR VOLUME 86.7 FL (78-98); MEAN PLATELET VOLUME 7.1 FL (7.4-10.4); MONOCYTES % (AUTO) 4.9 % (2-12); NEUTROPHILS # (AUTO) 17.1 X10'3 (1.8-7.7); PLATELET COUNT 471 X10'3 (140-440); RED BLOOD COUNT 2.45 X10'6 (4.20-5.60); RED CELL DISTRIBUTION WIDTH 17.3 % (11.5-14.5); WHITE BLOOD COUNT 19.8 X10'3 (4.5-11.0)
[2020-07-13 03:03] LABS: HEMATOCRIT 21.2 % (35.0-45.0); HEMOGLOBIN 6.8 g/dl (12.0-16.0)
[2020-07-13 03:06] LABS: ALANINE AMINOTRANSFERASE 59 U/L (12-78); ALBUMIN 1.5 G/DL (3.4-5.0); ALBUMIN/GLOBULIN RATIO 0.3 (1.1-1.5); ALKALINE PHOSPHATASE 229 IU/L (46-116); ANION GAP 7 (8-16); ASPARTATE AMINO TRANSFERASE 49 U/L (10-37); BILIRUBIN,TOTAL 1.1 MG/DL (0.1-1.0); BLOOD UREA NITROGEN 14 MG/DL (7-18); BUN/CREATININE RATIO 34.1 (6.6-38.0); CALCIUM 9.3 MG/DL (8.5-10.1); CHLORIDE 102 MMOL/L (99-107); CREATININE 0.41 MG/DL (0.40-0.90); GLUCOSE 108 MG/DL (70-104); MAGNESIUM 1.5 MG/DL (1.5-2.4); PHOSPHORUS 2.8 MG/DL (2.3-4.5); POTASSIUM 3.2 MMOL/L (3.5-5.1); SODIUM 136 MMOL/L (135-145); TOTAL CARBON DIOXIDE 27.4 MMOL/L (24-32); TOTAL PROTEIN 7.5 G/DL (6.4-8.2); eGFR > 90 ML/MIN
--- NOTE | 2020-07-13 03:11 | NUR ---
RN notified Trey Palma NP of critical lab Hgb 6.8 Htc 21.2. AIRPORT SALES AGENT directs to only order Type and screen and to let day shift decide if pt will receive blood products. Pt VSS, RN will continue to monitor.
[2020-07-13] MEDS: ipratropium/albuterol 3ml nebule NEB SCH ×6 (04:17→23:03)
[2020-07-13 04:25] LABS: ANISOCYTOSIS 1+; HYPOCHROMASIA 1+; PLATELET ESTIMATE INCREASED; POLYCHROMASIA FEW; STOMATOCYTES FEW
[2020-07-13] MEDS: lactobacillus rhamnosus 10,000 MMU CELLS/CAPSULE PO SCH ×3 (07:35→20:00)
[2020-07-13] MEDS: ondansetron/PF 4mg/2ml inj IV PRN ×3 (07:35→20:17)
[2020-07-13] MEDS: famotidine/PF 10 mg/ml inj IV SCH ×2 (07:35→20:18)
[2020-07-13] MEDS: gabapentin 100mg capsule PO SCH ×4 (07:35→20:22)
[2020-07-13] MEDS: piperacillin/tazo 3.375gm/50ml 50 ML IV SCH ×2 (07:35→17:39)
[2020-07-13] MEDS: methylnaltrexone br 12mg/0.6ml inj***SubQ only SQ SCH (07:35)
[2020-07-13] MEDS: NYSTATIN CREAM - 30GM TUBE TP SCH ×2 (07:36→20:18)
[2020-07-13] MEDS: thiamine inj. 100 MG in normal saline 100ml IV soln 100 ML IV SCH (07:36)
[2020-07-13] MEDS: chlorhexidine gluconate 15ml Cup****oral rinse MM SCH ×2 (07:41→17:39)
[2020-07-13] MEDS: K, MAG and/or Phos replacement - Verify level? MC SCH (08:00)
[2020-07-13] MEDS: folic acid 1mg/0.2ml inj IV SCH (08:39)
[2020-07-13] MEDS: potassium Cl 20mEq/100mL bag 100 ML IV PRN ×2 (08:55→11:57)
--- NOTE | 2020-07-13 09:09 | NUR ---
notified Dr. Morrow of patient's distended abdomen, discomfort and nausea. Orders received for CT of Abd/ pelvis with oral iv/contrast. Notfied Dr Morrow of patient's H/H 6.8/21.2 orders received for retic count, hepatoglobin and to tranfuse 2 units [facility].
[2020-07-13 09:20] LABS: RED BLOOD COUNT 2.53 X10'6 (4.20-5.60); RETICULOCYTE % (AUTO) 1.7 % (0.5-1.5)
[2020-07-13] MEDS: diatr meglu/diatrizoate 30ml oral sol.-(3 dose) bottle PO SCH ×3 (09:49→17:36)
[2020-07-13] MEDS: acetaminophen 650mg rectal suppository RC PRN ×2 (11:19→20:17)
[2020-07-13] MEDS: dexmedetomidine/D5W 100mL 100 ML IV PRN (12:12)
--- NOTE | 2020-07-13 15:32 | NUR ---
Reassessment: Pt continues receiving Clinimix-E for nutrition and receiving additional PRN electrolyte replacement. Pt still with c/o abdominal pain, to get CT of abdomen/pelvis to see if there is a residual fluid collection that is not drained properly per MD note. 45 mL output from MARIA ALEJANDRA drain 07/12 per I&O. LBM 07/07 documented as constipated with hypoactive bowel sounds however per med list Reglan held today d/t diarrhea. Pt continues receiving routine Relistor. Pt would benefit from routine bowel care if truly constipated/to further prevent constipation. Will continue to follow closely. Recommendations: 1) Once Trickle EN to resume; PEG TF per MD using Vital AF at 20ml/hr goal; to provide 480ml volume, 389ml free water, 576kcals, and 36g protein. IF tolerating and to advance; recommend 65ml/hr goal rate. 2) 3:1 TPN using Clinimix E 12/12 with 100ml 20% intralipids at goal rate of 80 ml/hr will provide total 1791 calories, 91 g protein, 1920 ml volume, 4.04 mg/kg/min CHO loading. 3) TG/PALB Q /, daily wts 4) routine bowel care; opioid antagonist and promotility agent per MD 5) monitor for PN adjustment needs pending further PALB Addendum: 07/13/20 at [address] Amended: Links added.
[2020-07-13] MEDS ORDERED: iohexol 300mg/ml 100ml inj. ONE (16:05)
[2020-07-13] MEDS: FENTANYL-0.9 % NACL/PF 100 ML IV PRN (18:48)
--- NOTE | 2020-07-13 20:01 | NUR ---
Attempted to garbage pick up worker a second unit of blood from lab twice. Per day rn, 2 units to be transfused and only 1 was transfused. Per blood bank, Dr. Morrow only ordered 1 unit. Will recheck H&H and confirm with .
[2020-07-13] MEDS: enoxaparin 40mg/0.4ml syringe SUBCUT SCH (20:18)
[2020-07-13] MEDS: [UNRECOGNIZED DRUG - OTHER] IV SCH ×4 (21:09)
[2020-07-13] MEDS: SELENIUM IV SCH ×4 (21:09)
[2020-07-13] MEDS: FAT EMULSION 20% IV SCH ×4 (21:09)
[2020-07-13] MEDS: ZINC IV SCH ×4 (21:09)
[2020-07-13] MEDS: COPPER IV SCH ×4 (21:09)
[2020-07-13] MEDS: MANGANESE IV SCH ×4 (21:09)
[2020-07-14] VITALS (24 sets, daily range): BP systolic 96–140; BP diastolic 51–92
[2020-07-14] MEDS: piperacillin/tazo 3.375gm/50ml 50 ML IV SCH ×3 (00:03→16:23)
[2020-07-14] MEDS: metoclopramide 5 mg/ml inj IV SCH ×4 (01:47→22:20)
[2020-07-14] MEDS: mineral oil/petrolatum ophthal oint EACHEYE SCH ×4 (01:47→20:00)
[2020-07-14 02:30] LABS: HEMATOCRIT 26.1 % (35.0-45.0); HEMOGLOBIN 8.5 g/dl (12.0-16.0); MEAN CORPUSCULAR HGB CONC 32.7 g/dL (33.0-36.5); MEAN CORPUSCULAR VOLUME 85.7 FL (78-98); MEAN PLATELET VOLUME 7.3 FL (7.4-10.4); PLATELET COUNT 477 X10'3 (140-440); RED BLOOD COUNT 3.04 X10'6 (4.20-5.60); WHITE BLOOD COUNT 13.5 X10'3 (4.5-11.0)
[2020-07-14] MEDS: ipratropium/albuterol 3ml nebule NEB SCH ×6 (02:45→23:34)
[2020-07-14 02:49] LABS: ALANINE AMINOTRANSFERASE 60 U/L (12-78); ALBUMIN 1.6 G/DL (3.4-5.0); ALBUMIN/GLOBULIN RATIO 0.3 (1.1-1.5); ALKALINE PHOSPHATASE 237 IU/L (46-116); ANION GAP 10 (8-16); ASPARTATE AMINO TRANSFERASE 51 U/L (10-37); BILIRUBIN,TOTAL 1.2 MG/DL (0.1-1.0); BLOOD UREA NITROGEN 16 MG/DL (7-18); BUN/CREATININE RATIO 28.6 (6.6-38.0); CALCIUM 9.5 MG/DL (8.5-10.1); CHLORIDE 104 MMOL/L (99-107); CREATININE 0.56 MG/DL (0.40-0.90); GLUCOSE 99 MG/DL (70-104); MAGNESIUM 1.5 MG/DL (1.5-2.4); PHOSPHORUS 3.2 MG/DL (2.3-4.5); POTASSIUM 3.2 MMOL/L (3.5-5.1); SODIUM 140 MMOL/L (135-145); TOTAL CARBON DIOXIDE 26.3 MMOL/L (24-32); TOTAL PROTEIN 7.7 G/DL (6.4-8.2); eGFR > 90 ML/MIN
[2020-07-14] MEDS: acetaminophen 650mg rectal suppository RC PRN ×2 (03:00→14:38)
[2020-07-14] MEDS: dexmedetomidine/D5W 100mL 100 ML IV PRN ×2 (04:55→18:18)
[2020-07-14] MEDS: potassium Cl 20mEq/100mL bag 100 ML IV PRN (04:55)
[2020-07-14] MEDS: ondansetron/PF 4mg/2ml inj IV PRN ×2 (06:08→19:21)
[2020-07-14] MEDS: thiamine inj. 100 MG in normal saline 100ml IV soln 100 ML IV SCH (07:02)
[2020-07-14] MEDS: NYSTATIN CREAM - 30GM TUBE TP SCH ×2 (07:02→22:24)
[2020-07-14] MEDS: famotidine/PF 10 mg/ml inj IV SCH ×2 (07:02→22:20)
[2020-07-14] MEDS: chlorhexidine gluconate 15ml Cup****oral rinse MM SCH ×3 (07:07→16:23)
[2020-07-14] MEDS: folic acid 1mg/0.2ml inj IV SCH (07:07)
[2020-07-14] MEDS: gabapentin 100mg capsule PO SCH ×3 (08:00→22:26)
[2020-07-14] MEDS: K, MAG and/or Phos replacement - Verify level? MC SCH (08:00)
[2020-07-14] MEDS: lactobacillus rhamnosus 10,000 MMU CELLS/CAPSULE PO SCH ×2 (08:00→22:21)
--- NOTE | 2020-07-14 12:09 | NUR ---
1000- Received report from Bea. Assumed care of patient. 1030- Patient assessed. Copious amounts of oral secretions, skin to hands and feet dry and cracking, applied copious amounts of lotion, Provided wound care to posterior neck both open areas are not packable, cleaned and applied optifoam. Abdominal wound cleansed and covered with bordered abd, wound is open and wound bed is pink, cleaned around right MARIA ALEJANDRA and fresh fenestrated optifoam placed, cleaned around PT site, greenish/white discharge removed, placed fenestrated optilock. 1130-arranged ipad call with patients mother, currently facetiming her.
[2020-07-14] MEDS: FENTANYL-0.9 % NACL/PF 100 ML IV PRN (18:18)
--- NOTE | 2020-07-14 18:43 | NUR ---
Problems reprioritized. Patient report given, questions answered & plan of care reviewed with Lubna Pittman
[2020-07-14] MEDS: scopolamine 1.5mg patch.TD72 TD SCH (22:20)
[2020-07-14] MEDS: acetaminophen 325mg/10.15ml oral unit dose solution PO PRN (22:22)
[2020-07-14] MEDS: enoxaparin 40mg/0.4ml syringe SUBCUT SCH (22:25)
[2020-07-15] VITALS (24 sets, daily range): BP systolic 101–138; BP diastolic 52–96
[2020-07-15] MEDS: piperacillin/tazo 3.375gm/50ml 50 ML IV SCH ×4 (00:46→23:09)
[2020-07-15] MEDS: [UNRECOGNIZED DRUG - OTHER] IV SCH ×8 (00:47→21:00)
[2020-07-15] MEDS: ZINC IV SCH ×8 (00:47→21:00)
[2020-07-15] MEDS: SELENIUM IV SCH ×8 (00:47→21:00)
[2020-07-15] MEDS: FAT EMULSION 20% IV SCH ×8 (00:47→21:00)
[2020-07-15] MEDS: COPPER IV SCH ×8 (00:47→21:00)
[2020-07-15] MEDS: MANGANESE IV SCH ×8 (00:47→21:00)
[2020-07-15] MEDS: mineral oil/petrolatum ophthal oint EACHEYE SCH ×4 (02:00→20:00)
[2020-07-15] MEDS: metoclopramide 5 mg/ml inj IV SCH ×4 (02:00→20:20)
[2020-07-15] MEDS: ipratropium/albuterol 3ml nebule NEB SCH ×6 (03:00→23:19)
[2020-07-15 03:20] LABS: BASOPHILS % (AUTO) 0.4 % (0-1); EOSINOPHILS # (AUTO) 0.4 X10'3 (0-0.9); EOSINOPHILS % (AUTO) 3.9 % (0-6); HEMOGLOBIN 8.2 g/dl (12.0-16.0); LYMPHOCYTES # (AUTO) 1.1 X10'3 (1.1-4.8); LYMPHOCYTES % (AUTO) 11.1 % (21-51); MEAN CORPUSCULAR HEMOGLOBIN 29.3 PG (27.0-31.0); MEAN CORPUSCULAR HGB CONC 29.4 g/dL (33.0-36.5); MEAN CORPUSCULAR VOLUME 99.7 FL (78-98); MEAN PLATELET VOLUME 7.2 FL (7.4-10.4); MONOCYTES # (AUTO) 0.6 X10'3 (0-0.9); MONOCYTES % (AUTO) 6.4 % (2-12); NEUTROPHILS # (AUTO) 7.7 X10'3 (1.8-7.7); NEUTROPHILS % (AUTO) 78.2 % (42-75); PLATELET COUNT 422 X10'3 (140-440); RED BLOOD COUNT 2.81 X10'6 (4.20-5.60); RED CELL DISTRIBUTION WIDTH 18.4 % (11.5-14.5); WHITE BLOOD COUNT 9.9 X10'3 (4.5-11.0)
[2020-07-15 04:27] LABS: ALANINE AMINOTRANSFERASE 63 U/L (12-78); ALBUMIN 1.7 G/DL (3.4-5.0); ALBUMIN/GLOBULIN RATIO 0.3 (1.1-1.5); ALKALINE PHOSPHATASE 265 IU/L (46-116); ANION GAP 8 (8-16); ASPARTATE AMINO TRANSFERASE 69 U/L (10-37); BILIRUBIN,TOTAL 1.2 MG/DL (0.1-1.0); BLOOD UREA NITROGEN 16 MG/DL (7-18); BUN/CREATININE RATIO 30.2 (6.6-38.0); CALCIUM 9.6 MG/DL (8.5-10.1); CHLORIDE 103 MMOL/L (99-107); CREATININE 0.53 MG/DL (0.40-0.90); GLUCOSE 111 MG/DL (70-104); MAGNESIUM 1.3 MG/DL (1.5-2.4); PHOSPHORUS 2.8 MG/DL (2.3-4.5); SODIUM 138 MMOL/L (135-145); TOTAL CARBON DIOXIDE 27.3 MMOL/L (24-32); TOTAL PROTEIN 7.9 G/DL (6.4-8.2); TRIGLYCERIDES 142 MG/DL (20-135); eGFR > 90 ML/MIN
[2020-07-15 04:30] LABS: POTASSIUM 2.9 MMOL/L (3.5-5.1)
[2020-07-15] MEDS: K, MAG and/or Phos replacement - Verify level? MC SCH (08:00)
[2020-07-15] MEDS: potassium Cl 20mEq/100mL bag 100 ML IV PRN ×2 (08:08→09:26)
[2020-07-15] MEDS: folic acid 1mg/0.2ml inj IV SCH (08:08)
[2020-07-15] MEDS: gabapentin 100mg capsule PO SCH ×3 (08:09→20:20)
[2020-07-15] MEDS: lactobacillus rhamnosus 10,000 MMU CELLS/CAPSULE PO SCH ×2 (08:09→20:20)
[2020-07-15] MEDS: thiamine inj. 100 MG in normal saline 100ml IV soln 100 ML IV SCH (08:09)
[2020-07-15] MEDS: NYSTATIN CREAM - 30GM TUBE TP SCH ×2 (08:09→20:22)
[2020-07-15] MEDS: chlorhexidine gluconate 15ml Cup****oral rinse MM SCH ×4 (08:09→23:11)
[2020-07-15] MEDS: famotidine/PF 10 mg/ml inj IV SCH ×2 (08:09→20:20)
[2020-07-15] MEDS: methylnaltrexone br 12mg/0.6ml inj***SubQ only SQ SCH (08:09)
[2020-07-15] MEDS: acetaminophen 325mg/10.15ml oral unit dose solution PO PRN (15:56)
[2020-07-15] MEDS: ondansetron/PF 4mg/2ml inj IV PRN (16:45)
[2020-07-15] MEDS: dexmedetomidine/D5W 100mL 100 ML IV PRN (16:46)
[2020-07-15] MEDS: FENTANYL-0.9 % NACL/PF 100 ML IV PRN (16:46)
--- NOTE | 2020-07-15 18:30 | NUR ---
Patient in room ICU 2043. I have received report from Simran CORNEJO and had the opportunity to ask questions and assume patient care.
[2020-07-15] MEDS: enoxaparin 40mg/0.4ml syringe SUBCUT SCH (20:21)
--- NOTE | 2020-07-15 23:54 | NUR ---
Patients abdominal dressing was soiled, changed to new island dressing and moist gauze. Sent request for wound care consult.
[2020-07-16] VITALS (24 sets, daily range): BP systolic 105–136; BP diastolic 53–89
[2020-07-16] MEDS: mineral oil/petrolatum ophthal oint EACHEYE SCH ×4 (02:00→20:03)
[2020-07-16] MEDS: SELENIUM IV SCH ×4 (02:23)
[2020-07-16] MEDS: FAT EMULSION 20% IV SCH ×4 (02:23)
[2020-07-16] MEDS: [UNRECOGNIZED DRUG - OTHER] IV SCH ×4 (02:23)
[2020-07-16] MEDS: ZINC IV SCH ×4 (02:23)
[2020-07-16] MEDS: metoclopramide 5 mg/ml inj IV SCH ×4 (02:23→20:03)
[2020-07-16] MEDS: MANGANESE IV SCH ×4 (02:23)
[2020-07-16] MEDS: COPPER IV SCH ×4 (02:23)
[2020-07-16 03:10] LABS: BASOPHILS % (AUTO) 0.4 % (0-1); EOSINOPHILS # (AUTO) 0.2 X10'3 (0-0.9); EOSINOPHILS % (AUTO) 2.8 % (0-6); HEMATOCRIT 28.3 % (35.0-45.0); HEMOGLOBIN 9.5 g/dl (12.0-16.0); LYMPHOCYTES # (AUTO) 1.2 X10'3 (1.1-4.8); LYMPHOCYTES % (AUTO) 13.7 % (21-51); MEAN CORPUSCULAR HEMOGLOBIN 28.8 PG (27.0-31.0); MEAN CORPUSCULAR HGB CONC 33.5 g/dL (33.0-36.5); MEAN PLATELET VOLUME 7.3 FL (7.4-10.4); MONOCYTES # (AUTO) 0.6 X10'3 (0-0.9); MONOCYTES % (AUTO) 6.5 % (2-12); NEUTROPHILS # (AUTO) 6.6 X10'3 (1.8-7.7); NEUTROPHILS % (AUTO) 76.6 % (42-75); PLATELET COUNT 400 X10'3 (140-440); RED CELL DISTRIBUTION WIDTH 16.5 % (11.5-14.5); WHITE BLOOD COUNT 8.6 X10'3 (4.5-11.0)
[2020-07-16] MEDS: ipratropium/albuterol 3ml nebule NEB SCH ×6 (03:16→23:22)
[2020-07-16] MEDS: ondansetron/PF 4mg/2ml inj IV PRN (03:17)
[2020-07-16 03:21] LABS: ALANINE AMINOTRANSFERASE 63 U/L (12-78); ALBUMIN 1.8 G/DL (3.4-5.0); ALBUMIN/GLOBULIN RATIO 0.3 (1.1-1.5); ALKALINE PHOSPHATASE 268 IU/L (46-116); ANION GAP 9 (8-16); ASPARTATE AMINO TRANSFERASE 58 U/L (10-37); BLOOD UREA NITROGEN 17 MG/DL (7-18); CALCIUM 9.6 MG/DL (8.5-10.1); CHLORIDE 102 MMOL/L (99-107); GLUCOSE 95 MG/DL (70-104); MAGNESIUM 1.2 MG/DL (1.5-2.4); PHOSPHORUS 2.9 MG/DL (2.3-4.5); POTASSIUM 3.4 MMOL/L (3.5-5.1); SODIUM 137 MMOL/L (135-145); TOTAL CARBON DIOXIDE 26.5 MMOL/L (24-32); eGFR > 90 ML/MIN
[2020-07-16] MEDS ORDERED: acetaminophen 325mg/10.15ml oral unit dose solution PO PRN (05:20)
[2020-07-16] MEDS: dexmedetomidine/D5W 100mL 100 ML IV PRN ×2 (05:32→16:32)
[2020-07-16] MEDS: acetaminophen 325mg/10.15ml oral unit dose solution PO PRN (05:54)
--- NOTE | 2020-07-16 06:17 | NUR ---
Problems reprioritized. Patient report given, questions answered & plan of care reviewed with Neeru CORNEJO.
--- NOTE | 2020-07-16 06:30 | NUR ---
Patient in room ICU 2043. I have received report from RN and had the opportunity to ask questions and assume patient care.
[2020-07-16] MEDS: K, MAG and/or Phos replacement - Verify level? MC SCH (08:00)
[2020-07-16] MEDS: fluconazole/NS 400mg/200ml bag 200 ML IV SCH (08:00)
[2020-07-16] MEDS: famotidine/PF 10 mg/ml inj IV SCH ×2 (08:11→20:03)
[2020-07-16] MEDS: gabapentin 100mg capsule PO SCH ×3 (08:11→20:03)
[2020-07-16] MEDS: chlorhexidine gluconate 15ml Cup****oral rinse MM SCH ×2 (08:11→16:38)
[2020-07-16] MEDS: thiamine inj. 100 MG in normal saline 100ml IV soln 100 ML IV SCH (08:11)
[2020-07-16] MEDS: lactobacillus rhamnosus 10,000 MMU CELLS/CAPSULE PO SCH ×2 (08:11→20:03)
[2020-07-16] MEDS: folic acid 1mg/0.2ml inj IV SCH (08:17)
[2020-07-16] MEDS: piperacillin/tazo 3.375gm/50ml 50 ML IV SCH ×2 (08:17→16:33)
[2020-07-16] MEDS: NYSTATIN CREAM - 30GM TUBE TP SCH ×2 (08:18→20:03)
--- NOTE | 2020-07-16 10:48 | NUR ---
Reassessment 07/16: Pt continues receiving Clinimix-E for nutrition and receiving additional PRN electrolyte replacement. Pt continues receiving routine Relistor. TG increased to 142 mg/dl, from 111 mg/dl, will monitor trends and adjust additional 20% lipids as needed. Has MARIA ALEJANDRA drain to abdomen for fluid drainage from abscess. Will follow. Recommendations: 1) Once Trickle EN to resume; PEG TF per MD using Vital AF at 20ml/hr goal; to provide 480ml volume, 389ml free water, 576kcals, and 36g protein. IF tolerating and to advance; recommend 65ml/hr goal rate. 2) 3:1 TPN using Clinimix E 12/12 with 100ml 20% intralipids at goal rate of 80 ml/hr will provide total 1791 calories, 91 g protein, 1920 ml volume, 4.04 mg/kg/min CHO loading. 3) TG/PALB Q /, daily wts 4) routine bowel care; opioid antagonist and promotility agent per MD 5) monitor for PN adjustment needs pending further PALB Addendum: 07/16/20 at [address] Amended: Links added.
[2020-07-16] MEDS: FENTANYL-0.9 % NACL/PF 100 ML IV PRN (16:34)
--- NOTE | 2020-07-16 18:22 | NUR ---
Problems reprioritized. Patient report given, questions answered & plan of care reviewed with RN.
[2020-07-16] MEDS: enoxaparin 40mg/0.4ml syringe SUBCUT SCH (20:03)
[2020-07-17] VITALS (24 sets, daily range): BP systolic 98–123; BP diastolic 55–85
[2020-07-17] MEDS: chlorhexidine gluconate 15ml Cup****oral rinse MM SCH ×4 (00:04→23:59)
[2020-07-17] MEDS: piperacillin/tazo 3.375gm/50ml 50 ML IV SCH ×4 (00:04→23:54)
[2020-07-17] MEDS: dexmedetomidine/D5W 100mL 100 ML IV PRN ×3 (01:06→21:23)
[2020-07-17] MEDS: metoclopramide 5 mg/ml inj IV SCH ×4 (02:42→20:10)
[2020-07-17] MEDS: mineral oil/petrolatum ophthal oint EACHEYE SCH ×4 (02:42→20:15)
[2020-07-17] MEDS: SELENIUM IV SCH ×4 (02:43)
[2020-07-17] MEDS: ZINC IV SCH ×4 (02:43)
[2020-07-17] MEDS: MANGANESE IV SCH ×4 (02:43)
[2020-07-17] MEDS: [UNRECOGNIZED DRUG - OTHER] IV SCH ×4 (02:43)
[2020-07-17] MEDS: COPPER IV SCH ×4 (02:43)
[2020-07-17] MEDS: FAT EMULSION 20% IV SCH ×4 (02:43)
[2020-07-17 03:09] LABS: BASOPHILS % (AUTO) 0.4 % (0-1); EOSINOPHILS # (AUTO) 0.3 X10'3 (0-0.9); EOSINOPHILS % (AUTO) 3.1 % (0-6); HEMATOCRIT 25.7 % (35.0-45.0); HEMOGLOBIN 8.6 g/dl (12.0-16.0); LYMPHOCYTES # (AUTO) 1.1 X10'3 (1.1-4.8); LYMPHOCYTES % (AUTO) 13.2 % (21-51); MEAN CORPUSCULAR HEMOGLOBIN 29.1 PG (27.0-31.0); MEAN CORPUSCULAR HGB CONC 33.5 g/dL (33.0-36.5); MEAN CORPUSCULAR VOLUME 86.9 FL (78-98); MEAN PLATELET VOLUME 7.6 FL (7.4-10.4); MONOCYTES # (AUTO) 0.6 X10'3 (0-0.9); MONOCYTES % (AUTO) 7.1 % (2-12); NEUTROPHILS # (AUTO) 6.4 X10'3 (1.8-7.7); NEUTROPHILS % (AUTO) 76.2 % (42-75); PLATELET COUNT 378 X10'3 (140-440); RED BLOOD COUNT 2.96 X10'6 (4.20-5.60); RED CELL DISTRIBUTION WIDTH 16.6 % (11.5-14.5); WHITE BLOOD COUNT 8.4 X10'3 (4.5-11.0)
[2020-07-17 03:22] LABS: ALANINE AMINOTRANSFERASE 77 U/L (12-78); ALBUMIN 1.8 G/DL (3.4-5.0); ALBUMIN/GLOBULIN RATIO 0.3 (1.1-1.5); ALKALINE PHOSPHATASE 285 IU/L (46-116); ANION GAP 11 (8-16); ASPARTATE AMINO TRANSFERASE 76 U/L (10-37); BLOOD UREA NITROGEN 17 MG/DL (7-18); CALCIUM 9.8 MG/DL (8.5-10.1); CHLORIDE 101 MMOL/L (99-107); CREATININE 0.46 MG/DL (0.40-0.90); GLUCOSE 117 MG/DL (70-104); PHOSPHORUS 3.2 MG/DL (2.3-4.5); SODIUM 137 MMOL/L (135-145); TOTAL CARBON DIOXIDE 25.3 MMOL/L (24-32); TOTAL PROTEIN 7.8 G/DL (6.4-8.2); eGFR > 90 ML/MIN
[2020-07-17 03:24] LABS: POTASSIUM 2.7 MMOL/L (3.5-5.1)
[2020-07-17] MEDS: ipratropium/albuterol 3ml nebule NEB SCH ×6 (03:37→23:44)
[2020-07-17] MEDS: potassium Cl 20mEq/100mL bag 100 ML IV PRN ×4 (04:23→14:57)
--- NOTE | 2020-07-17 06:20 | NUR ---
Problems reprioritized. Patient report given, questions answered & plan of care reviewed with CLEMENTE Driver.
--- NOTE | 2020-07-17 06:30 | NUR ---
Patient in room ICU 2043. I have received report from Nneka CORNEJO and had the opportunity to ask questions and assume patient care.
[2020-07-17] MEDS: folic acid 1mg/0.2ml inj IV SCH (08:10)
[2020-07-17] MEDS: famotidine/PF 10 mg/ml inj IV SCH ×2 (08:10→20:10)
[2020-07-17] MEDS: lactobacillus rhamnosus 10,000 MMU CELLS/CAPSULE PO SCH ×2 (08:10→20:10)
[2020-07-17] MEDS: gabapentin 100mg capsule PO SCH (08:10)
[2020-07-17] MEDS: methylnaltrexone br 12mg/0.6ml inj***SubQ only SQ SCH (08:10)
[2020-07-17] MEDS: fluconazole/NS 400mg/200ml bag 200 ML IV SCH (08:15)
[2020-07-17] MEDS: K, MAG and/or Phos replacement - Verify level? MC SCH (08:30)
[2020-07-17] MEDS: NYSTATIN CREAM - 30GM TUBE TP SCH ×2 (08:31→20:11)
[2020-07-17] MEDS: thiamine inj. 100 MG in normal saline 100ml IV soln 100 ML IV SCH (08:45)
--- NOTE | 2020-07-17 10:15 | NUR ---
Dr. Marshall and team at bedside with patient and nurse. MD aware of replacing electrolytes. MD wants his order for replacing magnesium to be 2gm over 8hrs and 4gm for 24hrs. This will help patient absorb nutrients rather than losing it in urine. I will make a [facility] nursing order for this replacement. Will continue to monitor.
[2020-07-17] MEDS ORDERED: magnesium 4gm in 100ml NS 100 ML IV ONE (11:00)
[2020-07-17] MEDS ORDERED: magnesium 2GM in 50ml NS 50 ML IV ONE (11:00)
--- NOTE | 2020-07-17 11:08 | NUR ---
Charge Nurse input orders per Dr. Marshall. Called pharmacy spoke with Dolly she advised to pulled product from [employer] and adjust rate to MD orders. Will continue to monitor.
[2020-07-17] MEDS: gabapentin 100mg capsule PEG SCH ×2 (12:41→21:25)
--- NOTE | 2020-07-17 14:00 | NUR ---
Patient did not want us to do the wound #3 on her neck. She was mouthing that she was tired and did not want us to touch it. We will continue to monitor.
[2020-07-17] MEDS: FENTANYL-0.9 % NACL/PF 100 ML IV PRN (15:48)
--- NOTE | 2020-07-17 18:21 | NUR ---
Problems reprioritized. Patient report given, questions answered & plan of care reviewed with GLASS TINTER.
[2020-07-17] MEDS: scopolamine 1.5mg patch.TD72 TD SCH (20:15)
[2020-07-17] MEDS: enoxaparin 40mg/0.4ml syringe SUBCUT SCH (21:25)
[2020-07-18] VITALS (25 sets, daily range): BP systolic 91–131; BP diastolic 48–87
[2020-07-18] MEDS: mineral oil/petrolatum ophthal oint EACHEYE SCH ×4 (02:00→20:51)
[2020-07-18] MEDS: ZINC IV SCH ×4 (02:42)
[2020-07-18] MEDS: SELENIUM IV SCH ×4 (02:42)
[2020-07-18] MEDS: FAT EMULSION 20% IV SCH ×4 (02:42)
[2020-07-18] MEDS: [UNRECOGNIZED DRUG - OTHER] IV SCH ×4 (02:42)
[2020-07-18] MEDS: COPPER IV SCH ×4 (02:42)
[2020-07-18] MEDS: MANGANESE IV SCH ×4 (02:42)
[2020-07-18] MEDS: metoclopramide 5 mg/ml inj IV SCH ×4 (02:45→20:47)
[2020-07-18] MEDS: ipratropium/albuterol 3ml nebule NEB SCH ×6 (03:38→23:02)
[2020-07-18 03:40] LABS: BASOPHILS % (AUTO) 0.5 % (0-1); EOSINOPHILS # (AUTO) 0.3 X10'3 (0-0.9); EOSINOPHILS % (AUTO) 4.5 % (0-6); HEMATOCRIT 26.1 % (35.0-45.0); HEMOGLOBIN 8.6 g/dl (12.0-16.0); LYMPHOCYTES # (AUTO) 1.4 X10'3 (1.1-4.8); LYMPHOCYTES % (AUTO) 19.7 % (21-51); MEAN CORPUSCULAR HEMOGLOBIN 28.7 PG (27.0-31.0); MEAN CORPUSCULAR VOLUME 86.8 FL (78-98); MEAN PLATELET VOLUME 7.7 FL (7.4-10.4); MONOCYTES # (AUTO) 0.8 X10'3 (0-0.9); MONOCYTES % (AUTO) 11.9 % (2-12); NEUTROPHILS # (AUTO) 4.4 X10'3 (1.8-7.7); NEUTROPHILS % (AUTO) 63.4 % (42-75); PLATELET COUNT 383 X10'3 (140-440); RED BLOOD COUNT 3.01 X10'6 (4.20-5.60); WHITE BLOOD COUNT 6.9 X10'3 (4.5-11.0)
[2020-07-18 03:53] LABS: ALANINE AMINOTRANSFERASE 65 U/L (12-78); ALBUMIN 1.8 G/DL (3.4-5.0); ALBUMIN/GLOBULIN RATIO 0.3 (1.1-1.5); ALKALINE PHOSPHATASE 300 IU/L (46-116); ANION GAP 7 (8-16); ASPARTATE AMINO TRANSFERASE 59 U/L (10-37); BILIRUBIN,TOTAL 0.9 MG/DL (0.1-1.0); BLOOD UREA NITROGEN 19 MG/DL (7-18); BUN/CREATININE RATIO 46.3 (6.6-38.0); CALCIUM 9.7 MG/DL (8.5-10.1); CHLORIDE 103 MMOL/L (99-107); CREATININE 0.41 MG/DL (0.40-0.90); GLUCOSE 107 MG/DL (70-104); MAGNESIUM 2.1 MG/DL (1.5-2.4); PHOSPHORUS 3.3 MG/DL (2.3-4.5); POTASSIUM 3.9 MMOL/L (3.5-5.1); SODIUM 134 MMOL/L (135-145); TOTAL PROTEIN 7.9 G/DL (6.4-8.2); TRIGLYCERIDES 137 MG/DL (20-135); eGFR > 90 ML/MIN
--- NOTE | 2020-07-18 06:18 | NUR ---
Problems reprioritized. Patient report given, questions answered & plan of care reviewed.
--- NOTE | 2020-07-18 06:49 | NUR ---
Patient in room ICU 2043. I have received report from Malena CORNEJO and had the opportunity to ask questions and assume patient care.
[2020-07-18] MEDS: dexmedetomidine/D5W 100mL 100 ML IV PRN ×2 (07:58→14:45)
[2020-07-18] MEDS: piperacillin/tazo 3.375gm/50ml 50 ML IV SCH ×3 (07:59→23:52)
[2020-07-18] MEDS: thiamine inj. 100 MG in normal saline 100ml IV soln 100 ML IV SCH (07:59)
[2020-07-18] MEDS: fluconazole/NS 400mg/200ml bag 200 ML IV SCH (07:59)
[2020-07-18] MEDS: famotidine/PF 10 mg/ml inj IV SCH ×2 (07:59→20:47)
[2020-07-18] MEDS: folic acid 1mg/0.2ml inj IV SCH (07:59)
[2020-07-18] MEDS: lactobacillus rhamnosus 10,000 MMU CELLS/CAPSULE PO SCH ×2 (08:00→20:47)
[2020-07-18] MEDS: K, MAG and/or Phos replacement - Verify level? MC SCH (08:00)
[2020-07-18] MEDS: chlorhexidine gluconate 15ml Cup****oral rinse MM SCH ×3 (08:00→23:52)
[2020-07-18] MEDS: NYSTATIN CREAM - 30GM TUBE TP SCH ×2 (08:00→20:50)
[2020-07-18] MEDS: gabapentin 100mg capsule PEG SCH ×3 (10:07→20:48)
--- NOTE | 2020-07-18 18:03 | NUR ---
Patient report given, questions answered & plan of care reviewed with Malena CORNEJO.
--- NOTE | 2020-07-18 18:05 | NUR ---
Patient in room ICU 2043. I have received report and had the opportunity to ask questions and assume patient care.
[2020-07-18] MEDS: FENTANYL-0.9 % NACL/PF 100 ML IV PRN (20:36)
[2020-07-18] MEDS: enoxaparin 40mg/0.4ml syringe SUBCUT SCH (20:47)
[2020-07-19] VITALS (24 sets, daily range): BP systolic 94–125; BP diastolic 50–76
[2020-07-19] MEDS: dexmedetomidine/D5W 100mL 100 ML IV PRN ×4 (00:50→19:12)
[2020-07-19] MEDS: mineral oil/petrolatum ophthal oint EACHEYE SCH ×4 (02:00→20:00)
[2020-07-19] MEDS: metoclopramide 5 mg/ml inj IV SCH ×4 (02:39→20:46)
[2020-07-19] MEDS: ipratropium/albuterol 3ml nebule NEB SCH ×6 (02:55→22:58)
[2020-07-19 03:01] LABS: BASOPHILS % (AUTO) 0.5 % (0-1); EOSINOPHILS # (AUTO) 0.3 X10'3 (0-0.9); HEMATOCRIT 24.8 % (35.0-45.0); HEMOGLOBIN 8.3 g/dl (12.0-16.0); LYMPHOCYTES # (AUTO) 1.3 X10'3 (1.1-4.8); LYMPHOCYTES % (AUTO) 28.3 % (21-51); MEAN CORPUSCULAR HGB CONC 33.4 g/dL (33.0-36.5); MEAN CORPUSCULAR VOLUME 86.8 FL (78-98); MEAN PLATELET VOLUME 7.4 FL (7.4-10.4); MONOCYTES # (AUTO) 0.7 X10'3 (0-0.9); MONOCYTES % (AUTO) 15.2 % (2-12); NEUTROPHILS # (AUTO) 2.3 X10'3 (1.8-7.7); PLATELET COUNT 373 X10'3 (140-440); RED BLOOD COUNT 2.86 X10'6 (4.20-5.60); RED CELL DISTRIBUTION WIDTH 17.1 % (11.5-14.5); WHITE BLOOD COUNT 4.6 X10'3 (4.5-11.0)
[2020-07-19] MEDS: ZINC IV SCH ×8 (03:04→22:51)
[2020-07-19] MEDS: FAT EMULSION 20% IV SCH ×8 (03:04→22:51)
[2020-07-19] MEDS: MANGANESE IV SCH ×8 (03:04→22:51)
[2020-07-19] MEDS: SELENIUM IV SCH ×8 (03:04→22:51)
[2020-07-19] MEDS: [UNRECOGNIZED DRUG - OTHER] IV SCH ×8 (03:04→22:51)
[2020-07-19] MEDS: COPPER IV SCH ×8 (03:04→22:51)
[2020-07-19 03:13] LABS: ALANINE AMINOTRANSFERASE 53 U/L (12-78); ALBUMIN 1.7 G/DL (3.4-5.0); ALBUMIN/GLOBULIN RATIO 0.3 (1.1-1.5); ALKALINE PHOSPHATASE 290 IU/L (46-116); ANION GAP 6 (8-16); ASPARTATE AMINO TRANSFERASE 39 U/L (10-37); BILIRUBIN,TOTAL 0.9 MG/DL (0.1-1.0); BLOOD UREA NITROGEN 17 MG/DL (7-18); BUN/CREATININE RATIO 39.5 (6.6-38.0); CALCIUM 9.1 MG/DL (8.5-10.1); CHLORIDE 102 MMOL/L (99-107); CREATININE 0.43 MG/DL (0.40-0.90); GLUCOSE 109 MG/DL (70-104); MAGNESIUM 1.9 MG/DL (1.5-2.4); PHOSPHORUS 3.6 MG/DL (2.3-4.5); POTASSIUM 3.4 MMOL/L (3.5-5.1); SODIUM 136 MMOL/L (135-145); TOTAL PROTEIN 7.9 G/DL (6.4-8.2); eGFR > 90 ML/MIN
[2020-07-19] MEDS: potassium Cl 20mEq/100mL bag 100 ML IV PRN ×2 (05:19→06:31)
--- NOTE | 2020-07-19 06:10 | NUR ---
Problems reprioritized. Patient report given, questions answered & plan of care reviewed.
[2020-07-19] MEDS: piperacillin/tazo 3.375gm/50ml 50 ML IV SCH ×2 (07:33→15:44)
[2020-07-19] MEDS: folic acid 1mg/0.2ml inj IV SCH (07:33)
[2020-07-19] MEDS: chlorhexidine gluconate 15ml Cup****oral rinse MM SCH ×2 (07:33→15:47)
[2020-07-19] MEDS: gabapentin 100mg capsule PEG SCH ×3 (07:34→20:46)
[2020-07-19] MEDS: thiamine inj. 100 MG in normal saline 100ml IV soln 100 ML IV SCH (07:34)
[2020-07-19] MEDS: methylnaltrexone br 12mg/0.6ml inj***SubQ only SQ SCH (07:34)
[2020-07-19] MEDS: lactobacillus rhamnosus 10,000 MMU CELLS/CAPSULE PO SCH ×2 (07:34→20:46)
[2020-07-19] MEDS: fluconazole/NS 400mg/200ml bag 200 ML IV SCH (07:34)
[2020-07-19] MEDS: NYSTATIN CREAM - 30GM TUBE TP SCH ×2 (07:34→20:47)
[2020-07-19] MEDS: famotidine/PF 10 mg/ml inj IV SCH ×2 (07:34→20:46)
[2020-07-19] MEDS: K, MAG and/or Phos replacement - Verify level? MC SCH (08:00)
[2020-07-19] MEDS: ondansetron/PF 4mg/2ml inj IV PRN (14:39)
[2020-07-19] MEDS: acetaminophen 650mg rectal suppository RC PRN (14:46)
--- NOTE | 2020-07-19 18:10 | NUR ---
pt continued temperature after tylenol suppository; packed patient in ice.
[2020-07-19] MEDS: enoxaparin 40mg/0.4ml syringe SUBCUT SCH (20:47)
--- NOTE | 2020-07-19 21:02 | NUR ---
Patient declines HS bath. Mouths words stating she has already had one. Pt instructed regarding CHG & linen change. Pt agrees to linen change.
[2020-07-20] VITALS (24 sets, daily range): BP systolic 105–131; BP diastolic 63–78
[2020-07-20] MEDS: chlorhexidine gluconate 15ml Cup****oral rinse MM SCH ×4 (00:29→23:59)
[2020-07-20] MEDS: piperacillin/tazo 3.375gm/50ml 50 ML IV SCH ×4 (00:29→23:57)
[2020-07-20] MEDS: mineral oil/petrolatum ophthal oint EACHEYE SCH ×4 (01:52→20:00)
[2020-07-20 02:09] LABS: BASOPHILS % (AUTO) 0.5 % (0-1); EOSINOPHILS # (AUTO) 0.3 X10'3 (0-0.9); EOSINOPHILS % (AUTO) 3.3 % (0-6); HEMOGLOBIN 8.3 g/dl (12.0-16.0); LYMPHOCYTES # (AUTO) 2.1 X10'3 (1.1-4.8); LYMPHOCYTES % (AUTO) 23.7 % (21-51); MEAN CORPUSCULAR HEMOGLOBIN 28.8 PG (27.0-31.0); MEAN CORPUSCULAR HGB CONC 33.1 g/dL (33.0-36.5); MEAN CORPUSCULAR VOLUME 87.1 FL (78-98); MEAN PLATELET VOLUME 7.6 FL (7.4-10.4); MONOCYTES # (AUTO) 1.3 X10'3 (0-0.9); MONOCYTES % (AUTO) 14.7 % (2-12); NEUTROPHILS # (AUTO) 5.1 X10'3 (1.8-7.7); NEUTROPHILS % (AUTO) 57.8 % (42-75); PLATELET COUNT 393 X10'3 (140-440); RED BLOOD COUNT 2.87 X10'6 (4.20-5.60); RED CELL DISTRIBUTION WIDTH 16.8 % (11.5-14.5); WHITE BLOOD COUNT 8.8 X10'3 (4.5-11.0)
[2020-07-20] MEDS: metoclopramide 5 mg/ml inj IV SCH ×4 (02:16→20:38)
[2020-07-20 02:21] LABS: ALANINE AMINOTRANSFERASE 50 U/L (12-78); ALBUMIN 1.8 G/DL (3.4-5.0); ALBUMIN/GLOBULIN RATIO 0.3 (1.1-1.5); ALKALINE PHOSPHATASE 379 IU/L (46-116); ANION GAP 8 (8-16); ASPARTATE AMINO TRANSFERASE 43 U/L (10-37); BILIRUBIN,TOTAL 0.8 MG/DL (0.1-1.0); BLOOD UREA NITROGEN 16 MG/DL (7-18); BUN/CREATININE RATIO 35.6 (6.6-38.0); CALCIUM 9.7 MG/DL (8.5-10.1); CHLORIDE 104 MMOL/L (99-107); CREATININE 0.45 MG/DL (0.40-0.90); GLUCOSE 113 MG/DL (70-104); MAGNESIUM 1.6 MG/DL (1.5-2.4); PHOSPHORUS 3.7 MG/DL (2.3-4.5); POTASSIUM 3.4 MMOL/L (3.5-5.1); SODIUM 139 MMOL/L (135-145); TOTAL CARBON DIOXIDE 26.8 MMOL/L (24-32); TOTAL PROTEIN 8.1 G/DL (6.4-8.2); eGFR > 90 ML/MIN
[2020-07-20] MEDS: ipratropium/albuterol 3ml nebule NEB SCH ×6 (02:44→23:04)
[2020-07-20] MEDS: dexmedetomidine/D5W 100mL 100 ML IV PRN ×2 (04:14→13:09)
[2020-07-20] MEDS: FENTANYL-0.9 % NACL/PF 100 ML IV PRN (04:18)
--- NOTE | 2020-07-20 06:30 | NUR ---
Patient in room ICU 2043. I have received report from Malena CORNEJO and had the opportunity to ask questions and assume patient care.
[2020-07-20] MEDS: potassium Cl 20mEq/100mL bag 100 ML IV PRN (06:48)
--- NOTE | 2020-07-20 07:00 | NUR ---
Problems reprioritized. Patient report given, questions answered & plan of care reviewed with Lily CORNEJO.Wound care consult ordered for right ear wound. Photo taken.
[2020-07-20] MEDS: K, MAG and/or Phos replacement - Verify level? MC SCH (08:00)
[2020-07-20] MEDS: fluconazole/NS 400mg/200ml bag 200 ML IV SCH (09:29)
[2020-07-20] MEDS: thiamine inj. 100 MG in normal saline 100ml IV soln 100 ML IV SCH (09:29)
[2020-07-20] MEDS: lactobacillus rhamnosus 10,000 MMU CELLS/CAPSULE PO SCH ×2 (09:31→21:03)
[2020-07-20] MEDS: famotidine/PF 10 mg/ml inj IV SCH ×2 (09:31→20:38)
[2020-07-20] MEDS: gabapentin 100mg capsule PEG SCH ×3 (09:32→21:03)
[2020-07-20] MEDS: NYSTATIN CREAM - 30GM TUBE TP SCH ×2 (09:33→20:00)
[2020-07-20] MEDS: folic acid 1mg/0.2ml inj IV SCH (13:19)
[2020-07-20] MEDS: scopolamine 1.5mg patch.TD72 TD SCH (15:37)
[2020-07-20] MEDS: acetaminophen 325mg/10.15ml oral unit dose solution PEG PRN (16:41)
--- NOTE | 2020-07-20 17:20 | NUR ---
Had given Tylenol via PEG Tube for Temp 38.6. Temp checked gain after using temporal 37.3. Continues to be 37.4 Temporal
--- NOTE | 2020-07-20 18:30 | NUR ---
Problems reprioritized. Patient report given, questions answered & plan of care reviewed with Vasiliy CORNEJO.
--- NOTE | 2020-07-20 18:44 | NUR ---
Patient in room ICU 2043. I have received report from Lily CORNEJO and had the opportunity to ask questions and assume patient care.
[2020-07-20] MEDS: enoxaparin 40mg/0.4ml syringe SUBCUT SCH (20:46)
[2020-07-21] VITALS (24 sets, daily range): BP systolic 99–113; BP diastolic 57–73
[2020-07-21] MEDS: ondansetron/PF 4mg/2ml inj IV PRN (00:23)
[2020-07-21 01:14] LABS: ALANINE AMINOTRANSFERASE 46 U/L (12-78); ALBUMIN 1.9 G/DL (3.4-5.0); ALBUMIN/GLOBULIN RATIO 0.3 (1.1-1.5); ALKALINE PHOSPHATASE 345 IU/L (46-116); ANION GAP 6 (8-16); ASPARTATE AMINO TRANSFERASE 50 U/L (10-37); BILIRUBIN,TOTAL 0.8 MG/DL (0.1-1.0); BLOOD UREA NITROGEN 19 MG/DL (7-18); BUN/CREATININE RATIO 38.8 (6.6-38.0); CALCIUM 10.3 MG/DL (8.5-10.1); CHLORIDE 98 MMOL/L (99-107); CREATININE 0.49 MG/DL (0.40-0.90); GLUCOSE 152 MG/DL (70-104); MAGNESIUM 1.4 MG/DL (1.5-2.4); PHOSPHORUS 3.9 MG/DL (2.3-4.5); POTASSIUM 3.7 MMOL/L (3.5-5.1); SODIUM 132 MMOL/L (135-145); TOTAL CARBON DIOXIDE 28.1 MMOL/L (24-32); TOTAL PROTEIN 8.2 G/DL (6.4-8.2); eGFR > 90 ML/MIN
[2020-07-21] MEDS: mineral oil/petrolatum ophthal oint EACHEYE SCH ×4 (01:19→20:00)
[2020-07-21 01:23] LABS: BASOPHILS # (AUTO) 0.1 X10'3 (0-0.2); BASOPHILS % (AUTO) 0.6 % (0-1); EOSINOPHILS # (AUTO) 0.3 X10'3 (0-0.9); EOSINOPHILS % (AUTO) 2.9 % (0-6); HEMOGLOBIN 8.1 g/dl (12.0-16.0); LYMPHOCYTES # (AUTO) 2.3 X10'3 (1.1-4.8); LYMPHOCYTES % (AUTO) 20.8 % (21-51); MEAN CORPUSCULAR HEMOGLOBIN 28.9 PG (27.0-31.0); MEAN CORPUSCULAR HGB CONC 33.7 g/dL (33.0-36.5); MEAN CORPUSCULAR VOLUME 85.9 FL (78-98); MEAN PLATELET VOLUME 7.5 FL (7.4-10.4); MONOCYTES # (AUTO) 1.3 X10'3 (0-0.9); MONOCYTES % (AUTO) 12.2 % (2-12); NEUTROPHILS % (AUTO) 63.5 % (42-75); PLATELET COUNT 434 X10'3 (140-440); RED BLOOD COUNT 2.79 X10'6 (4.20-5.60); RED CELL DISTRIBUTION WIDTH 16.5 % (11.5-14.5)
[2020-07-21] MEDS: ipratropium/albuterol 3ml nebule NEB SCH ×6 (02:55→23:21)
[2020-07-21] MEDS: metoclopramide 5 mg/ml inj IV SCH ×4 (04:17→20:37)
[2020-07-21] MEDS: magnesium 2GM in 50ml NS 50 ML IV PRN (04:21)
--- NOTE | 2020-07-21 06:18 | NUR ---
Problems reprioritized. Patient report given, questions answered & plan of care reviewed with Sadi CORNEJO.
[2020-07-21] MEDS: K, MAG and/or Phos replacement - Verify level? MC SCH (08:00)
[2020-07-21] MEDS: famotidine/PF 10 mg/ml inj IV SCH ×2 (08:16→20:37)
[2020-07-21] MEDS: lactobacillus rhamnosus 10,000 MMU CELLS/CAPSULE PO SCH ×2 (08:17→20:37)
[2020-07-21] MEDS: thiamine inj. 100 MG in normal saline 100ml IV soln 100 ML IV SCH (08:17)
[2020-07-21] MEDS: NYSTATIN CREAM - 30GM TUBE TP SCH ×2 (08:17→20:00)
[2020-07-21] MEDS: gabapentin 100mg capsule PEG SCH ×3 (08:17→20:38)
[2020-07-21] MEDS: methylnaltrexone br 12mg/0.6ml inj***SubQ only SQ SCH (08:17)
[2020-07-21] MEDS: chlorhexidine gluconate 15ml Cup****oral rinse MM SCH ×2 (08:17→16:00)
[2020-07-21] MEDS: fluconazole/NS 400mg/200ml bag 200 ML IV SCH (08:18)
[2020-07-21] MEDS: folic acid 1mg/0.2ml inj IV SCH (08:18)
[2020-07-21] MEDS: piperacillin/tazo 3.375gm/50ml 50 ML IV SCH ×3 (10:35→23:43)
[2020-07-21] MEDS: dexmedetomidine/D5W 100mL 100 ML IV PRN ×2 (12:20→21:22)
--- NOTE | 2020-07-21 14:58 | NUR ---
Reassessment 07/21: Pt continues receiving Clinimix-E for nutrition and receiving additional PRN electrolyte replacement. Pt continues receiving routine Relistor. Has MARIA ALEJANDRA drain to abdomen for fluid drainage from abscess. D/w bedside RN 07/20 if plans to resume tube feeding and wean TPN, no such plans today 07/21. Will follow. Hypoactive bowel sounds, last BM 07/16. Hypoactive bowel sounds may also be r/t not feeding the gut. She is receiving relistor. Recommendations: 1) Once Trickle EN to resume; PEG TF per MD using Vital AF at 20ml/hr goal; to provide 480ml volume, 389ml free water, 576kcals, and 36g protein. IF tolerating and to advance; recommend 65ml/hr goal rate. 2) 3:1 TPN using Clinimix E 12/12 with 100ml 20% intralipids at goal rate of 80 ml/hr will provide total 1791 calories, 91 g protein, 1920 ml volume, 4.04 mg/kg/min CHO loading. 3) TG/PALB Q /, daily wts 4) routine bowel care; opioid antagonist and promotility agent per MD Addendum: 07/21/20 at [address] Amended: Links added.
--- NOTE | 2020-07-21 18:22 | NUR ---
Problems reprioritized. Patient report given, questions answered & plan of care reviewed with CLEMENTE Guy.
[2020-07-21] MEDS: FENTANYL-0.9 % NACL/PF 100 ML IV PRN (18:37)
[2020-07-21] MEDS: magnesium 4gm in 100ml NS 100 ML IV PRN (20:32)
[2020-07-21] MEDS: enoxaparin 40mg/0.4ml syringe SUBCUT SCH (20:38)
[2020-07-21] MEDS: MANGANESE IV SCH ×4 (23:39)
[2020-07-21] MEDS: FAT EMULSION 20% IV SCH ×4 (23:39)
[2020-07-21] MEDS: COPPER IV SCH ×4 (23:39)
[2020-07-21] MEDS: ZINC IV SCH ×4 (23:39)
[2020-07-21] MEDS: [UNRECOGNIZED DRUG - OTHER] IV SCH ×4 (23:39)
[2020-07-21] MEDS: SELENIUM IV SCH ×4 (23:39)
[2020-07-22] VITALS (24 sets, daily range): BP systolic 92–121; BP diastolic 53–79
[2020-07-22] MEDS: chlorhexidine gluconate 15ml Cup****oral rinse MM SCH ×3 (01:10→17:51)
[2020-07-22] MEDS: mineral oil/petrolatum ophthal oint EACHEYE SCH ×4 (02:00→20:00)
[2020-07-22] MEDS: metoclopramide 5 mg/ml inj IV SCH ×4 (03:00→20:29)
[2020-07-22] MEDS: ipratropium/albuterol 3ml nebule NEB SCH ×6 (03:22→23:41)
[2020-07-22] MEDS: dexmedetomidine/D5W 100mL 100 ML IV PRN ×2 (05:27→14:57)
--- NOTE | 2020-07-22 06:30 | NUR ---
Received report from Malena CORNEJO, [facility].
--- NOTE | 2020-07-22 06:40 | NUR ---
Problems reprioritized. Patient report given, questions answered & plan of care reviewed.
[2020-07-22] MEDS: K, MAG and/or Phos replacement - Verify level? MC SCH (08:00)
[2020-07-22] MEDS: thiamine inj. 100 MG in normal saline 100ml IV soln 100 ML IV SCH (09:48)
[2020-07-22] MEDS: famotidine/PF 10 mg/ml inj IV SCH ×2 (09:48→20:29)
[2020-07-22] MEDS: folic acid 1mg/0.2ml inj IV SCH (09:49)
[2020-07-22] MEDS: gabapentin 100mg capsule PEG SCH ×3 (09:50→20:30)
[2020-07-22] MEDS: fluconazole/NS 400mg/200ml bag 200 ML IV SCH (09:50)
[2020-07-22] MEDS: lactobacillus rhamnosus 10,000 MMU CELLS/CAPSULE PO SCH ×2 (09:50→20:29)
[2020-07-22] MEDS: FENTANYL-0.9 % NACL/PF 100 ML IV PRN (12:43)
[2020-07-22] MEDS: piperacillin/tazo 3.375gm/50ml 50 ML IV SCH ×2 (12:43→13:03)
[2020-07-22] MEDS: NYSTATIN CREAM - 30GM TUBE TP SCH ×2 (12:43→20:42)
--- NOTE | 2020-07-22 13:00 | NUR ---
TF Consult: Trickle PEG TF to start today per MD to determine EN tolerance and gut functionality. Pt tolerating TPN at goal previously w/ LBM 07/16 receiving routine relistor and reglan. Receiving electrolyte replacements per protocol. Trickle EN recs below; will monitor for EN tolerance. Recommendations: 1) Trickle EN via PEG per MD using Vital AF at 10ml/hr goal; to provide 240ml volume, 194ml free water, 288kcals, and 18g protein. 2) IF tolerates trickle EN; consider advancing as medically indicated to 65ml/hr goal rate. 3) 3:1 TPN using Clinimix E 12/12 with 100ml 20% intralipids at goal rate of 80 ml/hr will provide total 1791 calories, 91 g protein, 1920 ml volume, 4.04 mg/kg/min CHO loading. 4) TG/PALB Q /, daily wts 5) routine bowel care; opioid antagonist and promotility agent per MD 6) monitor for EN tolerance Addendum: 07/22/20 at [address] Amended: Links added.
[2020-07-22 13:51] LABS: BASOPHILS # (AUTO) 0.1 X10'3 (0-0.2); BASOPHILS % (AUTO) 0.7 % (0-1); EOSINOPHILS # (AUTO) 0.5 X10'3 (0-0.9); EOSINOPHILS % (AUTO) 4.6 % (0-6); HEMATOCRIT 26.4 % (35.0-45.0); HEMOGLOBIN 8.4 g/dl (12.0-16.0); LYMPHOCYTES # (AUTO) 1.4 X10'3 (1.1-4.8); LYMPHOCYTES % (AUTO) 12.4 % (21-51); MEAN CORPUSCULAR HEMOGLOBIN 27.2 PG (27.0-31.0); MEAN CORPUSCULAR HGB CONC 31.6 g/dL (33.0-36.5); MEAN CORPUSCULAR VOLUME 85.9 FL (78-98); MEAN PLATELET VOLUME 7.2 FL (7.4-10.4); MONOCYTES # (AUTO) 1.2 X10'3 (0-0.9); MONOCYTES % (AUTO) 10.7 % (2-12); NEUTROPHILS % (AUTO) 71.6 % (42-75); PLATELET COUNT 458 X10'3 (140-440); RED BLOOD COUNT 3.08 X10'6 (4.20-5.60); RED CELL DISTRIBUTION WIDTH 16.4 % (11.5-14.5); WHITE BLOOD COUNT 11.2 X10'3 (4.5-11.0)
[2020-07-22 14:00] LABS: ALANINE AMINOTRANSFERASE 77 U/L (12-78); ALBUMIN 1.8 G/DL (3.4-5.0); ALBUMIN/GLOBULIN RATIO 0.3 (1.1-1.5); ALKALINE PHOSPHATASE 329 IU/L (46-116); ANION GAP 9 (8-16); ASPARTATE AMINO TRANSFERASE 114 U/L (10-37); BILIRUBIN,TOTAL 0.9 MG/DL (0.1-1.0); BLOOD UREA NITROGEN 17 MG/DL (7-18); BUN/CREATININE RATIO 38.6 (6.6-38.0); CALCIUM 9.5 MG/DL (8.5-10.1); CHLORIDE 101 MMOL/L (99-107); CREATININE 0.44 MG/DL (0.40-0.90); GLUCOSE 123 MG/DL (70-104); MAGNESIUM 2.1 MG/DL (1.5-2.4); PHOSPHORUS 2.9 MG/DL (2.3-4.5); POTASSIUM 3.5 MMOL/L (3.5-5.1); SODIUM 137 MMOL/L (135-145); TOTAL CARBON DIOXIDE 27.3 MMOL/L (24-32); TOTAL PROTEIN 8.2 G/DL (6.4-8.2); eGFR > 90 ML/MIN
--- NOTE | 2020-07-22 18:25 | NUR ---
Gave report to Valerie CORNEJO, transferred care.
--- NOTE | 2020-07-22 19:37 | NUR ---
Patient in room ICU 2043. I have received report from Jewell CORNEJO and had the opportunity to ask questions and assume patient care.
--- NOTE | 2020-07-22 19:38 | NUR ---
Patients bed read error when trying to obtain new weight.
[2020-07-22] MEDS: enoxaparin 40mg/0.4ml syringe SUBCUT SCH (20:39)
[2020-07-22] MEDS: ondansetron/PF 4mg/2ml inj IV PRN (20:54)
[2020-07-23] VITALS (23 sets, daily range): BP systolic 99–134; BP diastolic 49–87
[2020-07-23] MEDS: piperacillin/tazo 3.375gm/50ml 50 ML IV SCH ×4 (00:10→23:18)
[2020-07-23] MEDS: chlorhexidine gluconate 15ml Cup****oral rinse MM SCH ×2 (00:12→08:00)
[2020-07-23] MEDS: dexmedetomidine/D5W 100mL 100 ML IV PRN ×2 (00:18→10:46)
[2020-07-23] MEDS: COPPER IV SCH ×8 (00:23→21:00)
[2020-07-23] MEDS: ZINC IV SCH ×8 (00:23→21:00)
[2020-07-23] MEDS: MANGANESE IV SCH ×8 (00:23→21:00)
[2020-07-23] MEDS: FAT EMULSION 20% IV SCH ×8 (00:23→21:00)
[2020-07-23] MEDS: SELENIUM IV SCH ×8 (00:23→21:00)
[2020-07-23] MEDS: [UNRECOGNIZED DRUG - OTHER] IV SCH ×8 (00:23→21:00)
[2020-07-23] MEDS: mineral oil/petrolatum ophthal oint EACHEYE SCH ×4 (01:55→21:00)
[2020-07-23] MEDS: metoclopramide 5 mg/ml inj IV SCH ×4 (02:29→20:15)
[2020-07-23 03:02] LABS: BASOPHILS # (AUTO) 0.1 X10'3 (0-0.2); BASOPHILS % (AUTO) 0.7 % (0-1); EOSINOPHILS # (AUTO) 0.5 X10'3 (0-0.9); EOSINOPHILS % (AUTO) 3.8 % (0-6); HEMATOCRIT 23.8 % (35.0-45.0); HEMOGLOBIN 7.6 g/dl (12.0-16.0); LYMPHOCYTES # (AUTO) 1.4 X10'3 (1.1-4.8); LYMPHOCYTES % (AUTO) 11.8 % (21-51); MEAN CORPUSCULAR HEMOGLOBIN 27.3 PG (27.0-31.0); MEAN CORPUSCULAR VOLUME 85.4 FL (78-98); MEAN PLATELET VOLUME 7.5 FL (7.4-10.4); MONOCYTES # (AUTO) 1.1 X10'3 (0-0.9); MONOCYTES % (AUTO) 9.2 % (2-12); NEUTROPHILS % (AUTO) 74.5 % (42-75); PLATELET COUNT 462 X10'3 (140-440); RED BLOOD COUNT 2.78 X10'6 (4.20-5.60); RED CELL DISTRIBUTION WIDTH 16.8 % (11.5-14.5); WHITE BLOOD COUNT 12.1 X10'3 (4.5-11.0)
[2020-07-23] MEDS: ipratropium/albuterol 3ml nebule NEB SCH ×6 (03:18→23:19)
[2020-07-23 03:23] LABS: ALANINE AMINOTRANSFERASE 77 U/L (12-78); ALBUMIN 1.8 G/DL (3.4-5.0); ALBUMIN/GLOBULIN RATIO 0.3 (1.1-1.5); ALKALINE PHOSPHATASE 348 IU/L (46-116); ANION GAP 10 (8-16); ASPARTATE AMINO TRANSFERASE 116 U/L (10-37); BLOOD UREA NITROGEN 15 MG/DL (7-18); BUN/CREATININE RATIO 30.6 (6.6-38.0); CALCIUM 9.7 MG/DL (8.5-10.1); CHLORIDE 102 MMOL/L (99-107); CREATININE 0.49 MG/DL (0.40-0.90); GLUCOSE 102 MG/DL (70-104); MAGNESIUM 1.8 MG/DL (1.5-2.4); PHOSPHORUS 2.8 MG/DL (2.3-4.5); SODIUM 139 MMOL/L (135-145); TOTAL CARBON DIOXIDE 27.5 MMOL/L (24-32); TOTAL PROTEIN 8.2 G/DL (6.4-8.2); eGFR > 90 ML/MIN
--- NOTE | 2020-07-23 03:38 | NUR ---
Critical value K level of 3.0, July WATER SUPERVISOR. Following protocol.
[2020-07-23] MEDS: potassium Cl 20mEq/100mL bag 100 ML IV PRN ×4 (04:25→16:28)
--- NOTE | 2020-07-23 06:39 | NUR ---
Problems reprioritized. Patient report given, questions answered & plan of care reviewed with Tucker CORNEJO.
[2020-07-23] MEDS: thiamine inj. 100 MG in normal saline 100ml IV soln 100 ML IV SCH (08:24)
[2020-07-23] MEDS: fluconazole/NS 400mg/200ml bag 200 ML IV SCH (08:24)
[2020-07-23] MEDS: folic acid 1mg/0.2ml inj IV SCH (08:25)
[2020-07-23] MEDS: lactobacillus rhamnosus 10,000 MMU CELLS/CAPSULE PO SCH (08:25)
[2020-07-23] MEDS: gabapentin 100mg capsule PEG SCH ×3 (08:25→20:15)
[2020-07-23] MEDS: famotidine/PF 10 mg/ml inj IV SCH ×2 (08:25→20:15)
[2020-07-23] MEDS: methylnaltrexone br 12mg/0.6ml inj***SubQ only SQ SCH (08:26)
[2020-07-23] MEDS: NYSTATIN CREAM - 30GM TUBE TP SCH ×2 (08:26→21:00)
--- NOTE | 2020-07-23 10:35 | NUR ---
F/u 07/23: Pt tolerating PEG TF at trickle 10ml/hr w/ 2 large watery BM's this AM first significant in 7 days. Baker Test requests advancement of TF at 10ml/day given pt prior GI hx this admit. Updated TF recs below. Will monitor for EN tolerance and PN weaning as medically indicated. Recommendations: 1) Continuous PEG TF per MD using Vital AF at 65ml/hr goal; to provide 1560ml volume, 1264ml free water, 1872kcals, and 117g protein. Initiate at 20ml/hr since tolerating 10ml/hr prior trickle and advance 10ml/day per throw out clerk. 2) 3:1 TPN using Clinimix E 12/12 with 100ml 20% intralipids at goal rate of 80 ml/hr will provide total 1791 calories, 91 g protein, 1920 ml volume, 4.04 mg/kg/min CHO loading. 3) TG/PALB Q /, daily wts 4) routine bowel care; opioid antagonist and promotility agent per MD 5) monitor for EN tolerance; consider PN weaning IF continued EN tolerance Addendum: 07/23/20 at [address] Amended: Links added.
[2020-07-23] MEDS: FENTANYL-0.9 % NACL/PF 100 ML IV PRN (10:45)
[2020-07-23] MEDS: fentaNYL 50MCG/HOUR patch.TD72 TD SCH (14:52)
[2020-07-23] MEDS: scopolamine 1.5mg patch.TD72 TD SCH (15:24)
--- NOTE | 2020-07-23 18:29 | NUR ---
bedside SBAR report given to Vasiliy Carson, EMAR reviewed, questions answered.
--- NOTE | 2020-07-23 18:32 | NUR ---
Patient in room ICU 2043. I have received report from Alex CORNEJO and had the opportunity to ask questions and assume patient care.
[2020-07-23] MEDS: ondansetron/PF 4mg/2ml inj IV PRN (19:31)
[2020-07-23] MEDS: K, MAG and/or Phos replacement - Verify level? MC SCH (20:00)
[2020-07-23] MEDS: lactobacillus rhamnosus 10,000 MMU CELLS/CAPSULE PEG SCH (20:15)
[2020-07-23] MEDS: enoxaparin 40mg/0.4ml syringe SUBCUT SCH (20:16)
[2020-07-23] MEDS: acetaminophen 325mg/10.15ml oral unit dose solution PEG PRN (20:42)
[2020-07-23] MEDS ORDERED: Melatonin 3mg tablet PO ONE ×2 (23:50→23:55)
--- NOTE | 2020-07-23 23:52 | NUR ---
Patient having difficulty sleeping, received telephone orders from [facility] BRAND ENGINEER for one time 3 mg Melatonin tablet.
[2020-07-24] VITALS (24 sets, daily range): BP systolic 109–132; BP diastolic 60–82
[2020-07-24] MEDS: chlorhexidine gluconate 15ml Cup****oral rinse MM SCH
[2020-07-24] MEDS: metoclopramide 5 mg/ml inj IV SCH ×4 (01:53→19:25)
[2020-07-24] MEDS: ondansetron/PF 4mg/2ml inj IV PRN ×4 (01:54→23:24)
[2020-07-24] MEDS: mineral oil/petrolatum ophthal oint EACHEYE SCH ×4 (02:00→20:00)
[2020-07-24 03:12] LABS: BASOPHILS # (AUTO) 0.1 X10'3 (0-0.2); BASOPHILS % (AUTO) 0.4 % (0-1); EOSINOPHILS # (AUTO) 0.3 X10'3 (0-0.9); EOSINOPHILS % (AUTO) 1.6 % (0-6); HEMATOCRIT 22.9 % (35.0-45.0); HEMOGLOBIN 7.4 g/dl (12.0-16.0); LYMPHOCYTES # (AUTO) 1.3 X10'3 (1.1-4.8); LYMPHOCYTES % (AUTO) 7.4 % (21-51); MEAN CORPUSCULAR HEMOGLOBIN 27.4 PG (27.0-31.0); MEAN CORPUSCULAR HGB CONC 32.1 g/dL (33.0-36.5); MEAN CORPUSCULAR VOLUME 85.5 FL (78-98); MEAN PLATELET VOLUME 7.4 FL (7.4-10.4); MONOCYTES # (AUTO) 1.2 X10'3 (0-0.9); MONOCYTES % (AUTO) 6.9 % (2-12); NEUTROPHILS # (AUTO) 15.1 X10'3 (1.8-7.7); NEUTROPHILS % (AUTO) 83.7 % (42-75); PLATELET COUNT 479 X10'3 (140-440); RED BLOOD COUNT 2.68 X10'6 (4.20-5.60); RED CELL DISTRIBUTION WIDTH 16.3 % (11.5-14.5); WHITE BLOOD COUNT 18.1 X10'3 (4.5-11.0)
[2020-07-24] MEDS: ipratropium/albuterol 3ml nebule NEB SCH ×6 (03:31→23:32)
[2020-07-24 03:36] LABS: ALANINE AMINOTRANSFERASE 61 U/L (12-78); ALBUMIN 1.8 G/DL (3.4-5.0); ALBUMIN/GLOBULIN RATIO 0.3 (1.1-1.5); ALKALINE PHOSPHATASE 380 IU/L (46-116); ANION GAP 8 (8-16); ASPARTATE AMINO TRANSFERASE 72 U/L (10-37); BILIRUBIN,TOTAL 0.7 MG/DL (0.1-1.0); BLOOD UREA NITROGEN 16 MG/DL (7-18); BUN/CREATININE RATIO 36.4 (6.6-38.0); CHLORIDE 102 MMOL/L (99-107); CREATININE 0.44 MG/DL (0.40-0.90); GLUCOSE 161 MG/DL (70-104); MAGNESIUM 1.6 MG/DL (1.5-2.4); PHOSPHORUS 2.4 MG/DL (2.3-4.5); POTASSIUM 3.7 MMOL/L (3.5-5.1); SODIUM 137 MMOL/L (135-145); TOTAL CARBON DIOXIDE 27.5 MMOL/L (24-32); TOTAL PROTEIN 7.9 G/DL (6.4-8.2); eGFR > 90 ML/MIN
--- NOTE | 2020-07-24 06:20 | NUR ---
Problems reprioritized. Patient report given, questions answered & plan of care reviewed with Alex CORNEJO.
[2020-07-24] MEDS: folic acid 1mg/0.2ml inj IV SCH (08:08)
[2020-07-24] MEDS: gabapentin 100mg capsule PEG SCH ×3 (08:09→20:13)
[2020-07-24] MEDS: lactobacillus rhamnosus 10,000 MMU CELLS/CAPSULE PEG SCH ×2 (08:09→20:13)
[2020-07-24] MEDS: NYSTATIN CREAM - 30GM TUBE TP SCH ×2 (08:09→20:14)
[2020-07-24] MEDS: famotidine/PF 10 mg/ml inj IV SCH ×2 (08:10→19:25)
[2020-07-24] MEDS: fluconazole/NS 400mg/200ml bag 200 ML IV SCH (08:10)
[2020-07-24] MEDS: thiamine inj. 100 MG in normal saline 100ml IV soln 100 ML IV SCH (08:10)
[2020-07-24] MEDS: piperacillin/tazo 3.375gm/50ml 50 ML IV SCH ×2 (08:11→16:48)
[2020-07-24] MEDS: dexmedetomidine/D5W 100mL 100 ML IV PRN (16:45)
--- NOTE | 2020-07-24 18:33 | NUR ---
Patient in room ICU 2043. I have received report from Alex CORNEJO and had the opportunity to ask questions and assume patient care.
--- NOTE | 2020-07-24 18:33 | NUR ---
SBAR report given to Radha CORNEJO. questions answered.
--- NOTE | 2020-07-24 18:47 | NUR ---
Rounded with Dr. Garcia and Dr. Vazquez, EMAR reviewed, patient condition and assessment reviewed. orders entered by physicians.
[2020-07-24] MEDS: K, MAG and/or Phos replacement - Verify level? MC SCH (20:00)
[2020-07-24] MEDS: enoxaparin 40mg/0.4ml syringe SUBCUT SCH (20:12)
[2020-07-24] MEDS: FAT EMULSION 20% IV SCH ×4 (21:02)
[2020-07-24] MEDS: SELENIUM IV SCH ×4 (21:02)
[2020-07-24] MEDS: COPPER IV SCH ×4 (21:02)
[2020-07-24] MEDS: MANGANESE IV SCH ×4 (21:02)
[2020-07-24] MEDS: ZINC IV SCH ×4 (21:02)
[2020-07-24] MEDS: [UNRECOGNIZED DRUG - OTHER] IV SCH ×4 (21:02)
[2020-07-25] VITALS (25 sets, daily range): BP systolic 98–132; BP diastolic 55–90
[2020-07-25] MEDS: piperacillin/tazo 3.375gm/50ml 50 ML IV SCH ×3 (00:33→15:36)
[2020-07-25] MEDS: chlorhexidine gluconate 15ml Cup****oral rinse MM SCH ×3 (00:36→15:36)
[2020-07-25] MEDS: dexmedetomidine/D5W 100mL 100 ML IV PRN ×3 (01:32→20:39)
[2020-07-25] MEDS: mineral oil/petrolatum ophthal oint EACHEYE SCH ×4 (02:00→19:09)
[2020-07-25] MEDS: metoclopramide 5 mg/ml inj IV SCH ×4 (03:14→19:09)
[2020-07-25] MEDS: ipratropium/albuterol 3ml nebule NEB SCH ×6 (03:18→23:35)
[2020-07-25 06:13] LABS: BASOPHILS # (AUTO) 0.1 X10'3 (0-0.2); BASOPHILS % (AUTO) 0.6 % (0-1); EOSINOPHILS # (AUTO) 0.4 X10'3 (0-0.9); EOSINOPHILS % (AUTO) 2.4 % (0-6); HEMATOCRIT 23.8 % (35.0-45.0); HEMOGLOBIN 7.6 g/dl (12.0-16.0); LYMPHOCYTES # (AUTO) 1.6 X10'3 (1.1-4.8); LYMPHOCYTES % (AUTO) 8.9 % (21-51); MEAN CORPUSCULAR HEMOGLOBIN 27.2 PG (27.0-31.0); MEAN CORPUSCULAR VOLUME 85.1 FL (78-98); MEAN PLATELET VOLUME 7.3 FL (7.4-10.4); MONOCYTES # (AUTO) 1.5 X10'3 (0-0.9); MONOCYTES % (AUTO) 8.2 % (2-12); NEUTROPHILS # (AUTO) 14.2 X10'3 (1.8-7.7); NEUTROPHILS % (AUTO) 79.9 % (42-75); PLATELET COUNT 479 X10'3 (140-440); RED BLOOD COUNT 2.79 X10'6 (4.20-5.60); RED CELL DISTRIBUTION WIDTH 16.5 % (11.5-14.5); WHITE BLOOD COUNT 17.8 X10'3 (4.5-11.0)
--- NOTE | 2020-07-25 06:25 | NUR ---
Problems reprioritized. Patient report given, questions answered & plan of care reviewed with Valerie CORNEJO.
[2020-07-25 06:39] LABS: ALANINE AMINOTRANSFERASE 61 U/L (12-78); ALBUMIN 1.7 G/DL (3.4-5.0); ALBUMIN/GLOBULIN RATIO 0.3 (1.1-1.5); ALKALINE PHOSPHATASE 360 IU/L (46-116); ANION GAP 8 (8-16); ASPARTATE AMINO TRANSFERASE 75 U/L (10-37); BILIRUBIN,TOTAL 0.7 MG/DL (0.1-1.0); BLOOD UREA NITROGEN 16 MG/DL (7-18); CALCIUM 9.8 MG/DL (8.5-10.1); CHLORIDE 101 MMOL/L (99-107); GLUCOSE 125 MG/DL (70-104); MAGNESIUM 1.3 MG/DL (1.5-2.4); PHOSPHORUS 2.7 MG/DL (2.3-4.5); POTASSIUM 3.1 MMOL/L (3.5-5.1); SODIUM 136 MMOL/L (135-145); TOTAL CARBON DIOXIDE 26.7 MMOL/L (24-32); TOTAL PROTEIN 7.7 G/DL (6.4-8.2); eGFR > 90 ML/MIN
--- NOTE | 2020-07-25 06:54 | NUR ---
Patient in room ICU 2043. I have received report from Adamaris CORNEJO and had the opportunity to ask questions and assume patient care.
[2020-07-25] MEDS: famotidine/PF 10 mg/ml inj IV SCH ×2 (07:38→19:09)
[2020-07-25] MEDS: gabapentin 100mg capsule PEG SCH ×3 (07:38→21:58)
[2020-07-25] MEDS: lactobacillus rhamnosus 10,000 MMU CELLS/CAPSULE PEG SCH ×2 (07:38→19:09)
[2020-07-25] MEDS: folic acid 1mg/0.2ml inj IV SCH (07:39)
[2020-07-25] MEDS: methylnaltrexone br 12mg/0.6ml inj***SubQ only SQ SCH (07:39)
[2020-07-25] MEDS: thiamine inj. 100 MG in normal saline 100ml IV soln 100 ML IV SCH (07:39)
[2020-07-25] MEDS: fluconazole/NS 400mg/200ml bag 200 ML IV SCH (07:40)
[2020-07-25] MEDS: ondansetron/PF 4mg/2ml inj IV PRN ×2 (07:49→19:09)
[2020-07-25] MEDS: acetaminophen 325mg/10.15ml oral unit dose solution PEG PRN ×2 (07:49→23:17)
[2020-07-25] MEDS: K, MAG and/or Phos replacement - Verify level? MC SCH (08:00)
[2020-07-25] MEDS ORDERED: potassium Cl 40MEQ/250ML bag 270 ML IV PRN (08:05)
[2020-07-25] MEDS: NYSTATIN CREAM - 30GM TUBE TP SCH ×2 (08:46→19:10)
[2020-07-25] MEDS: magnesium 2GM in 50ml NS 50 ML IV PRN (08:46)
[2020-07-25] MEDS: potassium Cl 40MEQ/1/2NS 520ml 520 ML IV PRN (10:44)
[2020-07-25 11:19] LABS: PREALBUMIN 15.5 MG/DL (19-36)
--- NOTE | 2020-07-25 19:00 | NUR ---
Patient report given, questions answered & plan of care reviewed with Mac RN.
[2020-07-25] MEDS: mineral oil/petrolatum, white cream 113gm jar TP SCH (19:10)
[2020-07-25] MEDS: scopolamine 1.5mg patch.TD72 TD SCH (21:56)
[2020-07-25] MEDS: enoxaparin 40mg/0.4ml syringe SUBCUT SCH (21:59)
[2020-07-25 23:17] LABS: MAGNESIUM 1.7 MG/DL (1.5-2.4)
[2020-07-25] MEDS: SELENIUM IV SCH ×4 (23:17)
[2020-07-25] MEDS: [UNRECOGNIZED DRUG - OTHER] IV SCH ×4 (23:17)
[2020-07-25] MEDS: ZINC IV SCH ×4 (23:17)
[2020-07-25] MEDS: COPPER IV SCH ×4 (23:17)
[2020-07-25] MEDS: FAT EMULSION 20% IV SCH ×4 (23:17)
[2020-07-25] MEDS: MANGANESE IV SCH ×4 (23:17)
[2020-07-26] VITALS (24 sets, daily range): BP systolic 109–144; BP diastolic 65–92
[2020-07-26] MEDS: mineral oil/petrolatum ophthal oint EACHEYE SCH ×4 (02:00→20:00)
[2020-07-26] MEDS: metoclopramide 5 mg/ml inj IV SCH ×4 (02:43→20:54)
[2020-07-26] MEDS: ipratropium/albuterol 3ml nebule NEB SCH ×6 (03:56→22:55)
[2020-07-26] MEDS: ondansetron/PF 4mg/2ml inj IV PRN (05:25)
--- NOTE | 2020-07-26 06:00 | NUR ---
RN Note -Shift Summary Tube feeding turned off at 2100 due pt nauseous and gagging. Gastric residuals 100 ml. Obtained new order for scopolamine patch, which pt responded to well. Pt has had elevated temp throughout shift. Responded to Tylenol. Will endorse to day shift RN to assess whether pt can tolerate tube feeding.
--- NOTE | 2020-07-26 07:11 | NUR ---
notified lab that patient's labs were not drawn this morning. laboratory tester stated a framing and hanging would not be available until after 0800.
[2020-07-26] MEDS: mineral oil/petrolatum, white cream 113gm jar TP SCH ×2 (08:00→20:55)
[2020-07-26] MEDS: NYSTATIN CREAM - 30GM TUBE TP SCH ×2 (08:00→20:55)
[2020-07-26] MEDS: K, MAG and/or Phos replacement - Verify level? MC SCH (08:00)
--- NOTE | 2020-07-26 09:00 | NUR ---
pt did not have fentanyl patch on her right shoulder for the last two days. pharmacist in charge owner notified and pharmacist, Trisha.
--- NOTE | 2020-07-26 09:00 | NUR ---
fentanyl patch removal appeared on EMAR. inspected patient and no fentanyl patch appeared on patient. board of directors notified and patient searched again. yesterday when physical therapy and myself got patient up to dangle, upon inspection of patient's skin, nothing was on her skin.
[2020-07-26] MEDS: dexmedetomidine/D5W 100mL 100 ML IV PRN ×2 (09:21→17:17)
[2020-07-26] MEDS: piperacillin/tazo 3.375gm/50ml 50 ML IV SCH ×3 (09:22→15:22)
[2020-07-26] MEDS: lactobacillus rhamnosus 10,000 MMU CELLS/CAPSULE PEG SCH ×2 (09:22→20:54)
[2020-07-26] MEDS: gabapentin 100mg capsule PEG SCH ×3 (09:22→20:54)
[2020-07-26] MEDS: famotidine/PF 10 mg/ml inj IV SCH ×2 (09:22→20:54)
[2020-07-26] MEDS: chlorhexidine gluconate 15ml Cup****oral rinse MM SCH ×3 (09:22→15:22)
[2020-07-26] MEDS: thiamine inj. 100 MG in normal saline 100ml IV soln 100 ML IV SCH (09:23)
[2020-07-26] MEDS: folic acid 1mg/0.2ml inj IV SCH (09:24)
[2020-07-26] MEDS: fluconazole/NS 400mg/200ml bag 200 ML IV SCH (09:24)
[2020-07-26 10:07] LABS: BASOPHILS # (AUTO) 0.1 X10'3 (0-0.2); BASOPHILS % (AUTO) 0.6 % (0-1); EOSINOPHILS # (AUTO) 0.3 X10'3 (0-0.9); EOSINOPHILS % (AUTO) 1.7 % (0-6); HEMATOCRIT 22.9 % (35.0-45.0); HEMOGLOBIN 7.5 g/dl (12.0-16.0); LYMPHOCYTES # (AUTO) 1.6 X10'3 (1.1-4.8); LYMPHOCYTES % (AUTO) 8.9 % (21-51); MEAN CORPUSCULAR HGB CONC 32.9 g/dL (33.0-36.5); MEAN CORPUSCULAR VOLUME 84.9 FL (78-98); MEAN PLATELET VOLUME 7.4 FL (7.4-10.4); MONOCYTES # (AUTO) 1.6 X10'3 (0-0.9); MONOCYTES % (AUTO) 8.8 % (2-12); NEUTROPHILS # (AUTO) 14.3 X10'3 (1.8-7.7); PLATELET COUNT 508 X10'3 (140-440); RED CELL DISTRIBUTION WIDTH 17.2 % (11.5-14.5); WHITE BLOOD COUNT 17.9 X10'3 (4.5-11.0)
[2020-07-26 10:30] LABS: ALANINE AMINOTRANSFERASE 73 U/L (12-78); ALBUMIN 1.8 G/DL (3.4-5.0); ALBUMIN/GLOBULIN RATIO 0.3 (1.1-1.5); ALKALINE PHOSPHATASE 403 IU/L (46-116); ANION GAP 10 (8-16); ASPARTATE AMINO TRANSFERASE 76 U/L (10-37); BILIRUBIN,TOTAL 0.9 MG/DL (0.1-1.0); BLOOD UREA NITROGEN 16 MG/DL (7-18); BUN/CREATININE RATIO 35.6 (6.6-38.0); CALCIUM 9.8 MG/DL (8.5-10.1); CHLORIDE 103 MMOL/L (99-107); CREATININE 0.45 MG/DL (0.40-0.90); GLUCOSE 120 MG/DL (70-104); MAGNESIUM 1.7 MG/DL (1.5-2.4); PHOSPHORUS 2.7 MG/DL (2.3-4.5); POTASSIUM 3.6 MMOL/L (3.5-5.1); SODIUM 140 MMOL/L (135-145); TOTAL CARBON DIOXIDE 27.3 MMOL/L (24-32); TOTAL PROTEIN 8.1 G/DL (6.4-8.2); eGFR > 90 ML/MIN
--- NOTE | 2020-07-26 10:41 | NUR ---
F/u 07/26: Pt tolerating PEG feeds at 30ml/hr as well as TPN at goal. Noted TF turned off last night for pt reported nausea though may have been r/t medications per RN today. Pt previously tolerating TF at 30ml/hr for 3 days and would benefit from TF advancement to goal per RD recs as medically indicated. Consider weaning PN once EN at goal and tolerating. Rectal tube 1670ml output per I&O past 24 hours though RN reports no high output during day shift yesterday so maybe error. IF persistent high output would benefit from holding promotility agent if MD agreeable though pt did have significant constipation prior to first rectal tube stools. Will continue to monitor for EN advancement and tolerance. Recommendations: 1) Continuous PEG TF per MD using Vital AF at 65ml/hr goal; to provide 1560ml volume, 1264ml free water, 1872kcals, and 117g protein. Initiate at 20ml/hr since tolerating 10ml/hr prior trickle and advance 10ml/day per inspector government property. 2) 3:1 TPN using Clinimix E 12/12 with 100ml 20% intralipids at goal rate of 80 ml/hr will provide total 1791 calories, 91 g protein, 1920 ml volume, 4.04 mg/kg/min CHO loading. 3) TG/PALB Q /, daily wts 4) routine bowel care; opioid antagonist and promotility agent per MD 5) IF true diarrhea via rectal tube consider holding promotility agent and anti-diarrheal IF MD agreeable 6) monitor for EN tolerance; consider PN weaning IF continued EN tolerance once at goal Addendum: 07/26/20 at [address] Amended: Links added.
[2020-07-26] MEDS: acetaminophen 325mg/10.15ml oral unit dose solution PEG PRN (11:05)
[2020-07-26] MEDS: fentaNYL 50MCG/HOUR patch.TD72 TD SCH (15:23)
--- NOTE | 2020-07-26 18:28 | NUR ---
Patient report given, questions answered & plan of care reviewed with Mac RN.
[2020-07-26] MEDS: enoxaparin 40mg/0.4ml syringe SUBCUT SCH (20:55)
[2020-07-26] MEDS: COPPER IV SCH ×4 (21:54)
[2020-07-26] MEDS: MANGANESE IV SCH ×4 (21:54)
[2020-07-26] MEDS: ZINC IV SCH ×4 (21:54)
[2020-07-26] MEDS: SELENIUM IV SCH ×4 (21:54)
[2020-07-26] MEDS: [UNRECOGNIZED DRUG - OTHER] IV SCH ×4 (21:54)
[2020-07-26] MEDS: cyclobenzaprine 10mg tablet PO PRN (21:54)
[2020-07-26] MEDS: FAT EMULSION 20% IV SCH ×4 (21:54)
[2020-07-27] VITALS (27 sets, daily range): BP systolic 121–149; BP diastolic 69–99
[2020-07-27] MEDS: acetaminophen 325mg/10.15ml oral unit dose solution PEG PRN (01:55)
[2020-07-27] MEDS: metoclopramide 5 mg/ml inj IV SCH ×4 (01:56→20:58)
[2020-07-27] MEDS: mineral oil/petrolatum ophthal oint EACHEYE SCH ×4 (01:57→20:58)
[2020-07-27] MEDS: ipratropium/albuterol 3ml nebule NEB SCH ×7 (02:57→23:10)
[2020-07-27 06:24] LABS: BASOPHILS # (AUTO) 0.1 X10'3 (0-0.2); BASOPHILS % (AUTO) 0.6 % (0-1); EOSINOPHILS # (AUTO) 0.4 X10'3 (0-0.9); EOSINOPHILS % (AUTO) 2.1 % (0-6); LYMPHOCYTES # (AUTO) 1.8 X10'3 (1.1-4.8); LYMPHOCYTES % (AUTO) 10.7 % (21-51); MEAN CORPUSCULAR HEMOGLOBIN 27.7 PG (27.0-31.0); MEAN CORPUSCULAR HGB CONC 33.1 g/dL (33.0-36.5); MEAN CORPUSCULAR VOLUME 83.8 FL (78-98); MEAN PLATELET VOLUME 7.3 FL (7.4-10.4); MONOCYTES # (AUTO) 1.4 X10'3 (0-0.9); MONOCYTES % (AUTO) 8.5 % (2-12); NEUTROPHILS # (AUTO) 13.1 X10'3 (1.8-7.7); NEUTROPHILS % (AUTO) 78.1 % (42-75); PLATELET COUNT 466 X10'3 (140-440); RED BLOOD COUNT 2.54 X10'6 (4.20-5.60); RED CELL DISTRIBUTION WIDTH 16.9 % (11.5-14.5); WHITE BLOOD COUNT 16.7 X10'3 (4.5-11.0)
[2020-07-27 06:31] LABS: HEMATOCRIT 21.3 % (35.0-45.0)
[2020-07-27 07:00] LABS: ALANINE AMINOTRANSFERASE 69 U/L (12-78); ALBUMIN 1.7 G/DL (3.4-5.0); ALBUMIN/GLOBULIN RATIO 0.3 (1.1-1.5); ALKALINE PHOSPHATASE 373 IU/L (46-116); ANION GAP 8 (8-16); ASPARTATE AMINO TRANSFERASE 64 U/L (10-37); BILIRUBIN,TOTAL 0.8 MG/DL (0.1-1.0); BLOOD UREA NITROGEN 15 MG/DL (7-18); BUN/CREATININE RATIO 34.9 (6.6-38.0); CALCIUM 9.8 MG/DL (8.5-10.1); CHLORIDE 104 MMOL/L (99-107); CREATININE 0.43 MG/DL (0.40-0.90); GLUCOSE 120 MG/DL (70-104); MAGNESIUM 1.7 MG/DL (1.5-2.4); PHOSPHORUS 3.6 MG/DL (2.3-4.5); SODIUM 141 MMOL/L (135-145); TOTAL CARBON DIOXIDE 28.8 MMOL/L (24-32); TOTAL PROTEIN 7.7 G/DL (6.4-8.2); eGFR > 90 ML/MIN
[2020-07-27 07:01] LABS: POTASSIUM 2.8 MMOL/L (3.5-5.1)
[2020-07-27] MEDS: chlorhexidine gluconate 15ml Cup****oral rinse MM SCH ×4 (07:18→23:22)
[2020-07-27] MEDS: methylnaltrexone br 12mg/0.6ml inj***SubQ only SQ SCH (07:18)
[2020-07-27] MEDS: mineral oil/petrolatum, white cream 113gm jar TP SCH ×2 (07:18→21:01)
[2020-07-27] MEDS: thiamine inj. 100 MG in normal saline 100ml IV soln 100 ML IV SCH (07:19)
[2020-07-27] MEDS: piperacillin/tazo 3.375gm/50ml 50 ML IV SCH ×4 (07:19→23:24)
[2020-07-27] MEDS: folic acid 1mg/0.2ml inj IV SCH (07:19)
[2020-07-27] MEDS: lactobacillus rhamnosus 10,000 MMU CELLS/CAPSULE PEG SCH ×2 (07:19→20:58)
[2020-07-27] MEDS: famotidine/PF 10 mg/ml inj IV SCH ×2 (07:19→20:58)
[2020-07-27] MEDS: gabapentin 100mg capsule PEG SCH ×3 (07:19→20:58)
[2020-07-27] MEDS: potassium Cl 40MEQ/1/2NS 520ml 520 ML IV PRN ×2 (07:24→12:25)
[2020-07-27] MEDS: ondansetron/PF 4mg/2ml inj IV PRN (07:42)
[2020-07-27] MEDS: fluconazole/NS 400mg/200ml bag 200 ML IV SCH (07:43)
[2020-07-27] MEDS: NYSTATIN CREAM - 30GM TUBE TP SCH ×2 (08:00→21:01)
[2020-07-27] MEDS: K, MAG and/or Phos replacement - Verify level? MC SCH (08:00)
--- NOTE | 2020-07-27 09:30 | NUR ---
Dr. Morrow notified about patient's critical H/H; new orders received for 1 unit PRBCs.
[2020-07-27] MEDS: dexmedetomidine/D5W 100mL 100 ML IV PRN ×2 (11:10→18:32)
--- NOTE | 2020-07-27 18:15 | NUR ---
Patient in room ICU 2043. I have received report from Rush CORNEJO and had the opportunity to ask questions and assume patient care. Patient crying, due to large amount of pain. I can read her lips, she is having muscle spasms in her legs, shoulders and arms. Will web coordinator her flexeril Q6h and try to get ahead of the pain and the spasms. She is also hypertensive, probably related to her pain.
[2020-07-27] MEDS: cyclobenzaprine 10mg tablet PO PRN (18:25)
[2020-07-27] MEDS: enoxaparin 40mg/0.4ml syringe SUBCUT SCH (21:00)
[2020-07-28] VITALS (21 sets, daily range): BP systolic 110–134; BP diastolic 72–117
[2020-07-28] MEDS: cyclobenzaprine 10mg tablet PO PRN ×3 (00:31→20:07)
[2020-07-28] MEDS: metoclopramide 5 mg/ml inj IV SCH ×4 (02:00→20:12)
[2020-07-28] MEDS: ipratropium/albuterol 3ml nebule NEB SCH ×6 (03:23→23:15)
[2020-07-28] MEDS: MANGANESE IV SCH ×8 (04:20→21:00)
[2020-07-28] MEDS: FAT EMULSION 20% IV SCH ×8 (04:20→21:00)
[2020-07-28] MEDS: SELENIUM IV SCH ×8 (04:20→21:00)
[2020-07-28] MEDS: mineral oil/petrolatum ophthal oint EACHEYE SCH ×4 (04:20→20:12)
[2020-07-28] MEDS: [UNRECOGNIZED DRUG - OTHER] IV SCH ×8 (04:20→21:00)
[2020-07-28] MEDS: ZINC IV SCH ×8 (04:20→21:00)
[2020-07-28] MEDS: COPPER IV SCH ×8 (04:20→21:00)
[2020-07-28] MEDS: acetaminophen 325mg/10.15ml oral unit dose solution PEG PRN ×2 (04:45→20:08)
[2020-07-28] MEDS: ondansetron/PF 4mg/2ml inj IV PRN (05:01)
--- NOTE | 2020-07-28 06:32 | NUR ---
Problems reprioritized. Patient report given, questions answered & plan of care reviewed with Shanthi CORNEJO.
--- NOTE | 2020-07-28 06:41 | NUR ---
Patient in room ICU 2043. I have received report from Ros CORNEJO and had the opportunity to ask questions and assume patient care.
[2020-07-28 07:02] LABS: BASOPHILS # (AUTO) 0.1 X10'3 (0-0.2); BASOPHILS % (AUTO) 0.6 % (0-1); EOSINOPHILS # (AUTO) 0.6 X10'3 (0-0.9); EOSINOPHILS % (AUTO) 2.8 % (0-6); HEMATOCRIT 32.2 % (35.0-45.0); HEMOGLOBIN 10.4 g/dl (12.0-16.0); LYMPHOCYTES # (AUTO) 1.5 X10'3 (1.1-4.8); LYMPHOCYTES % (AUTO) 7.6 % (21-51); MEAN CORPUSCULAR HEMOGLOBIN 27.6 PG (27.0-31.0); MEAN CORPUSCULAR HGB CONC 32.4 g/dL (33.0-36.5); MEAN CORPUSCULAR VOLUME 85.3 FL (78-98); MEAN PLATELET VOLUME 7.7 FL (7.4-10.4); MONOCYTES # (AUTO) 1.6 X10'3 (0-0.9); MONOCYTES % (AUTO) 8.2 % (2-12); NEUTROPHILS % (AUTO) 80.8 % (42-75); PLATELET COUNT 485 X10'3 (140-440); RED BLOOD COUNT 3.78 X10'6 (4.20-5.60); RED CELL DISTRIBUTION WIDTH 17.2 % (11.5-14.5); WHITE BLOOD COUNT 19.8 X10'3 (4.5-11.0)
[2020-07-28] MEDS: famotidine/PF 10 mg/ml inj IV SCH ×2 (07:20→20:12)
[2020-07-28] MEDS: fluconazole/NS 400mg/200ml bag 200 ML IV SCH (07:20)
[2020-07-28] MEDS: gabapentin 100mg capsule PEG SCH ×3 (07:20→20:07)
[2020-07-28] MEDS: lactobacillus rhamnosus 10,000 MMU CELLS/CAPSULE PEG SCH ×2 (07:20→20:07)
[2020-07-28] MEDS: chlorhexidine gluconate 15ml Cup****oral rinse MM SCH ×3 (07:20→23:52)
[2020-07-28 07:21] LABS: ALANINE AMINOTRANSFERASE 68 U/L (12-78); ALBUMIN 1.8 G/DL (3.4-5.0); ALBUMIN/GLOBULIN RATIO 0.3 (1.1-1.5); ALKALINE PHOSPHATASE 382 IU/L (46-116); ANION GAP 8 (8-16); ASPARTATE AMINO TRANSFERASE 55 U/L (10-37); BILIRUBIN,TOTAL 1.1 MG/DL (0.1-1.0); BLOOD UREA NITROGEN 16 MG/DL (7-18); CALCIUM 10.2 MG/DL (8.5-10.1); CHLORIDE 100 MMOL/L (99-107); GLUCOSE 115 MG/DL (70-104); MAGNESIUM 1.2 MG/DL (1.5-2.4); PHOSPHORUS 3.4 MG/DL (2.3-4.5); POTASSIUM 3.8 MMOL/L (3.5-5.1); SODIUM 135 MMOL/L (135-145); TOTAL PROTEIN 8.2 G/DL (6.4-8.2); eGFR > 90 ML/MIN
[2020-07-28] MEDS: mineral oil/petrolatum, white cream 113gm jar TP SCH ×2 (07:21→20:07)
[2020-07-28] MEDS: NYSTATIN CREAM - 30GM TUBE TP SCH ×2 (07:21→20:12)
[2020-07-28] MEDS: piperacillin/tazo 3.375gm/50ml 50 ML IV SCH ×3 (07:30→23:52)
[2020-07-28] MEDS: folic acid 1mg/0.2ml inj IV SCH (07:30)
[2020-07-28] MEDS: K, MAG and/or Phos replacement - Verify level? MC SCH (08:00)
[2020-07-28] MEDS: dexmedetomidine/D5W 100mL 100 ML IV PRN ×3 (10:08→23:59)
[2020-07-28] MEDS: thiamine inj. 100 MG in normal saline 100ml IV soln 100 ML IV SCH (10:08)
[2020-07-28] MEDS: magnesium 2GM in 50ml NS 50 ML IV PRN (11:12)
--- NOTE | 2020-07-28 14:57 | NUR ---
Patient refusing to have neck dressing changed at this time, says she wants to sleep and we can change it later, will reattempt later.
[2020-07-28] MEDS: magnesium 4gm in 100ml NS 100 ML IV PRN (15:41)
--- NOTE | 2020-07-28 18:24 | NUR ---
Problems reprioritized. Patient report given, questions answered & plan of care reviewed with Anna CORNEJO.
--- NOTE | 2020-07-28 18:27 | NUR ---
Patient in room ICU 2043. I have received report from Shanthi CORNEJO and had the opportunity to ask questions and assume patient care.
[2020-07-28] MEDS: enoxaparin 40mg/0.4ml syringe SUBCUT SCH (20:11)
[2020-07-28] MEDS: scopolamine 1.5mg patch.TD72 TD SCH (20:14)
[2020-07-28] MEDS: diatr meglu/diatrizoate 30ml oral sol.-(3 dose) bottle PO SCH (21:11)
[2020-07-29] VITALS (18 sets, daily range): BP systolic 104–132; BP diastolic 57–87
[2020-07-29] MEDS: mineral oil/petrolatum ophthal oint EACHEYE SCH ×4 (02:00→19:59)
[2020-07-29] MEDS: ondansetron/PF 4mg/2ml inj IV PRN (02:06)
[2020-07-29] MEDS: metoclopramide 5 mg/ml inj IV SCH ×4 (02:06→19:58)
[2020-07-29] MEDS: ipratropium/albuterol 3ml nebule NEB SCH ×6 (03:00→23:22)
[2020-07-29] MEDS: dexmedetomidine/D5W 100mL 100 ML IV PRN ×4 (05:20→23:07)
--- NOTE | 2020-07-29 06:33 | NUR ---
Problems reprioritized. Patient report given, questions answered & plan of care reviewed with Lubna CORNEJO.
[2020-07-29] MEDS: diatr meglu/diatrizoate 30ml oral sol.-(3 dose) bottle PO SCH ×2 (07:31→09:00)
[2020-07-29] MEDS: fluconazole/NS 400mg/200ml bag 200 ML IV SCH (07:31)
[2020-07-29] MEDS: famotidine/PF 10 mg/ml inj IV SCH ×2 (07:32→19:58)
[2020-07-29] MEDS: gabapentin 100mg capsule PEG SCH ×3 (07:32→21:55)
[2020-07-29] MEDS: thiamine inj. 100 MG in normal saline 100ml IV soln 100 ML IV SCH (07:32)
[2020-07-29] MEDS: folic acid 1mg/0.2ml inj IV SCH (07:32)
[2020-07-29] MEDS: methylnaltrexone br 12mg/0.6ml inj***SubQ only SQ SCH (07:32)
[2020-07-29] MEDS: chlorhexidine gluconate 15ml Cup****oral rinse MM SCH ×2 (07:32→16:00)
[2020-07-29] MEDS: lactobacillus rhamnosus 10,000 MMU CELLS/CAPSULE PEG SCH ×2 (07:32→19:58)
[2020-07-29] MEDS: piperacillin/tazo 3.375gm/50ml 50 ML IV SCH ×2 (07:32→16:03)
[2020-07-29] MEDS: mineral oil/petrolatum, white cream 113gm jar TP SCH ×2 (07:33→19:59)
[2020-07-29] MEDS: NYSTATIN CREAM - 30GM TUBE TP SCH ×2 (07:34→19:59)
[2020-07-29] MEDS: K, MAG and/or Phos replacement - Verify level? MC SCH (08:00)
[2020-07-29] MEDS ORDERED: iohexol 300mg/ml 100ml inj. ONE (08:42)
[2020-07-29 09:05] LABS: ALANINE AMINOTRANSFERASE 50 U/L (12-78); ALBUMIN 1.6 G/DL (3.4-5.0); ALBUMIN/GLOBULIN RATIO 0.3 (1.1-1.5); ALKALINE PHOSPHATASE 323 IU/L (46-116); ANION GAP 10 (8-16); ASPARTATE AMINO TRANSFERASE 29 U/L (10-37); BILIRUBIN,TOTAL 0.7 MG/DL (0.1-1.0); BLOOD UREA NITROGEN 18 MG/DL (7-18); CALCIUM 8.9 MG/DL (8.5-10.1); CHLORIDE 101 MMOL/L (99-107); CREATININE 0.36 MG/DL (0.40-0.90); GLUCOSE 128 MG/DL (70-104); MAGNESIUM 2.1 MG/DL (1.5-2.4); POTASSIUM 3.3 MMOL/L (3.5-5.1); SODIUM 136 MMOL/L (135-145); TOTAL CARBON DIOXIDE 24.8 MMOL/L (24-32); TOTAL PROTEIN 7.4 G/DL (6.4-8.2); eGFR > 90 ML/MIN
[2020-07-29 10:16] LABS: BASOPHILS # (AUTO) 0.1 X10'3 (0-0.2); BASOPHILS % (AUTO) 0.7 % (0-1); EOSINOPHILS # (AUTO) 0.4 X10'3 (0-0.9); EOSINOPHILS % (AUTO) 2.1 % (0-6); HEMATOCRIT 27.2 % (35.0-45.0); HEMOGLOBIN 8.7 g/dl (12.0-16.0); LYMPHOCYTES # (AUTO) 1.7 X10'3 (1.1-4.8); LYMPHOCYTES % (AUTO) 8.6 % (21-51); MEAN CORPUSCULAR HEMOGLOBIN 27.4 PG (27.0-31.0); MEAN CORPUSCULAR VOLUME 85.7 FL (78-98); MEAN PLATELET VOLUME 7.2 FL (7.4-10.4); MONOCYTES # (AUTO) 1.5 X10'3 (0-0.9); MONOCYTES % (AUTO) 7.5 % (2-12); NEUTROPHILS # (AUTO) 15.8 X10'3 (1.8-7.7); NEUTROPHILS % (AUTO) 81.1 % (42-75); PLATELET COUNT 502 X10'3 (140-440); RED BLOOD COUNT 3.18 X10'6 (4.20-5.60); WHITE BLOOD COUNT 19.5 X10'3 (4.5-11.0)
[2020-07-29] MEDS: potassium Cl 40MEQ/1/2NS 520ml 520 ML IV PRN (10:29)
--- NOTE | 2020-07-29 10:30 | NUR ---
JACKELIN Hagan at bedside to remove left MARIA ALEJANDRA drain. Bandaid applied. will continue to monitor.
--- NOTE | 2020-07-29 11:56 | NUR ---
F/u 07/29: PEG feeds restarted today to run at 20 ml/hr, per bedside RN was tolerating with no gastric residuals. TPN continues. MARIA ALEJANDRA drained removed. would benefit from TF advancement to goal per RD recs as medically indicated. Consider weaning PN once EN at goal and tolerating. Rectal tube 1670ml output on 07/26 per I&O past 24 hours though RN reports no high output during day shift yesterday, possible error. Will continue to monitor for EN advancement and tolerance. Recommendations: 1) Continuous PEG TF at 30 ml/hr per MD, recommend to advance as tolerated when ok by MD using Vital AF at 65ml/hr goal; to provide 1560ml volume, 1264ml free water, 1872kcals, and 117g protein. 2) 3:1 TPN using Clinimix E 12/12 with 100ml 20% intralipids at goal rate of 80 ml/hr will provide total 1791 calories, 91 g protein, 1920 ml volume, 4.04 mg/kg/min CHO loading. 3) TG/PALB Q /, daily wts 4) routine bowel care; opioid antagonist and promotility agent per MD 5) monitor for EN tolerance; consider PN weaning IF continued EN tolerance once at goal Addendum: 07/29/20 at [address] Amended: Links added.
[2020-07-29] MEDS: fentaNYL 50MCG/HOUR patch.TD72 TD SCH (13:37)
[2020-07-29] MEDS: cyclobenzaprine 10mg tablet PO PRN (19:58)
[2020-07-29] MEDS ORDERED: HYDROcodone/acetaminophen 5mg/325mg tablet PO PRN (21:15)
[2020-07-29] MEDS: COPPER IV SCH ×4 (22:14)
[2020-07-29] MEDS: [UNRECOGNIZED DRUG - OTHER] IV SCH ×4 (22:14)
[2020-07-29] MEDS: ZINC IV SCH ×4 (22:14)
[2020-07-29] MEDS: MANGANESE IV SCH ×4 (22:14)
[2020-07-29] MEDS: FAT EMULSION 20% IV SCH ×4 (22:14)
[2020-07-29] MEDS: SELENIUM IV SCH ×4 (22:14)
[2020-07-29] MEDS: enoxaparin 40mg/0.4ml syringe SUBCUT SCH (23:06)
[2020-07-30] VITALS (22 sets, daily range): BP systolic 101–135; BP diastolic 55–98
[2020-07-30] MEDS: metoclopramide 5 mg/ml inj IV SCH ×4 (02:19→19:31)
[2020-07-30] MEDS: piperacillin/tazo 3.375gm/50ml 50 ML IV SCH ×3 (02:19→16:54)
[2020-07-30] MEDS: chlorhexidine gluconate 15ml Cup****oral rinse MM SCH ×3 (02:19→16:54)
[2020-07-30] MEDS: mineral oil/petrolatum ophthal oint EACHEYE SCH ×4 (02:20→20:00)
[2020-07-30] MEDS: ipratropium/albuterol 3ml nebule NEB SCH ×6 (02:40→23:26)
--- NOTE | 2020-07-30 05:00 | NUR ---
Patient refused 5am repositioning
[2020-07-30 05:53] LABS: BASOPHILS # (AUTO) 0.1 X10'3 (0-0.2); BASOPHILS % (AUTO) 0.5 % (0-1); EOSINOPHILS # (AUTO) 0.5 X10'3 (0-0.9); HEMATOCRIT 26.3 % (35.0-45.0); HEMOGLOBIN 8.6 g/dl (12.0-16.0); LYMPHOCYTES # (AUTO) 1.5 X10'3 (1.1-4.8); MEAN CORPUSCULAR HEMOGLOBIN 28.2 PG (27.0-31.0); MEAN CORPUSCULAR HGB CONC 32.6 g/dL (33.0-36.5); MEAN CORPUSCULAR VOLUME 86.2 FL (78-98); MEAN PLATELET VOLUME 7.4 FL (7.4-10.4); MONOCYTES # (AUTO) 1.2 X10'3 (0-0.9); NEUTROPHILS # (AUTO) 13.8 X10'3 (1.8-7.7); NEUTROPHILS % (AUTO) 80.5 % (42-75); PLATELET COUNT 491 X10'3 (140-440); RED BLOOD COUNT 3.05 X10'6 (4.20-5.60); RED CELL DISTRIBUTION WIDTH 17.6 % (11.5-14.5); WHITE BLOOD COUNT 17.2 X10'3 (4.5-11.0)
[2020-07-30 06:11] LABS: ALANINE AMINOTRANSFERASE 41 U/L (12-78); ALBUMIN 1.6 G/DL (3.4-5.0); ALBUMIN/GLOBULIN RATIO 0.3 (1.1-1.5); ALKALINE PHOSPHATASE 297 IU/L (46-116); ANION GAP 6 (8-16); ASPARTATE AMINO TRANSFERASE 23 U/L (10-37); BILIRUBIN,TOTAL 0.6 MG/DL (0.1-1.0); BLOOD UREA NITROGEN 16 MG/DL (7-18); CALCIUM 9.4 MG/DL (8.5-10.1); CHLORIDE 103 MMOL/L (99-107); CREATININE 0.32 MG/DL (0.40-0.90); GLUCOSE 115 MG/DL (70-104); MAGNESIUM 1.8 MG/DL (1.5-2.4); POTASSIUM 3.5 MMOL/L (3.5-5.1); SODIUM 137 MMOL/L (135-145); TOTAL CARBON DIOXIDE 28.2 MMOL/L (24-32); TOTAL PROTEIN 7.5 G/DL (6.4-8.2); eGFR > 90 ML/MIN
[2020-07-30] MEDS: K, MAG and/or Phos replacement - Verify level? MC SCH (08:00)
[2020-07-30] MEDS: folic acid 1mg/0.2ml inj IV SCH (08:32)
[2020-07-30] MEDS: fluconazole/NS 400mg/200ml bag 200 ML IV SCH (08:32)
[2020-07-30] MEDS: famotidine/PF 10 mg/ml inj IV SCH ×2 (08:32→19:31)
[2020-07-30] MEDS: thiamine inj. 100 MG in normal saline 100ml IV soln 100 ML IV SCH (08:32)
[2020-07-30] MEDS: mineral oil/petrolatum, white cream 113gm jar TP SCH ×2 (08:32→20:43)
[2020-07-30] MEDS: lactobacillus rhamnosus 10,000 MMU CELLS/CAPSULE PEG SCH ×2 (08:32→19:30)
[2020-07-30] MEDS: gabapentin 100mg capsule PEG SCH ×3 (08:32→20:45)
[2020-07-30] MEDS: NYSTATIN CREAM - 30GM TUBE TP SCH ×2 (08:33→20:45)
[2020-07-30] MEDS: ondansetron/PF 4mg/2ml inj IV PRN ×2 (13:34→19:32)
[2020-07-30] MEDS ORDERED: LACT1CAP26 PEG (13:40)
[2020-07-30] MEDS ORDERED: SCOP1PAT11 TD (13:40)
[2020-07-30] MEDS ORDERED: [UNRECOGNIZED DRUG - CODE] IV (13:40)
[2020-07-30] MEDS ORDERED: PIPE4.5F6 IV (13:40)
[2020-07-30] MEDS ORDERED: METH12DI SQ (13:40)
[2020-07-30] MEDS ORDERED: ENOX40DI11 SUBCUT (13:40)
[2020-07-30] MEDS ORDERED: CYCL-1 PO (13:40)
[2020-07-30] MEDS ORDERED: METO5VIA IV (13:40)
[2020-07-30] MEDS ORDERED: HYDR-3964 PO (13:40)
[2020-07-30] MEDS ORDERED: ACET160O2 PEG (13:40)
[2020-07-30] MEDS ORDERED: FENT1PAT10 TD (13:40)
--- NOTE | 2020-07-30 14:30 | NUR ---
Called report to nurse at [facility]. All questions and concerns addressed.
--- NOTE | 2020-07-30 15:04 | NUR ---
Called and left message for patients motherMariann to return call to update her for transfer to [facility].
[2020-07-30] MEDS: dexmedetomidine/D5W 100mL 100 ML IV PRN (17:49)
--- NOTE | 2020-07-30 18:30 | NUR ---
Patient in room ICU 2043. I have received report from Lubna CORNEJO and had the opportunity to ask questions and assume patient care.
[2020-07-30] MEDS: enoxaparin 40mg/0.4ml syringe SUBCUT SCH (20:45)
[2020-07-30] MEDS: COPPER IV SCH ×4 (22:08)
[2020-07-30] MEDS: [UNRECOGNIZED DRUG - OTHER] IV SCH ×4 (22:08)
[2020-07-30] MEDS: SELENIUM IV SCH ×4 (22:08)
[2020-07-30] MEDS: MANGANESE IV SCH ×4 (22:08)
[2020-07-30] MEDS: ZINC IV SCH ×4 (22:08)
[2020-07-30] MEDS: FAT EMULSION 20% IV SCH ×4 (22:08)
[2020-07-31] VITALS (10 sets, daily range): BP systolic 115–141; BP diastolic 58–89
[2020-07-31] MEDS: piperacillin/tazo 3.375gm/50ml 50 ML IV SCH ×2 (00:23→08:36)
[2020-07-31] MEDS: chlorhexidine gluconate 15ml Cup****oral rinse MM SCH ×2 (00:32→08:32)
[2020-07-31] MEDS: mineral oil/petrolatum ophthal oint EACHEYE SCH ×2 (02:00→08:00)
[2020-07-31] MEDS: metoclopramide 5 mg/ml inj IV SCH ×2 (02:35→08:32)
[2020-07-31] MEDS: ipratropium/albuterol 3ml nebule NEB SCH ×2 (02:50→07:09)
[2020-07-31] MEDS: dexmedetomidine/D5W 100mL 100 ML IV PRN (04:17)
[2020-07-31] MEDS: ondansetron/PF 4mg/2ml inj IV PRN (05:00)
[2020-07-31 06:12] LABS: BASOPHILS # (AUTO) 0.1 X10'3 (0-0.2); BASOPHILS % (AUTO) 0.4 % (0-1); EOSINOPHILS # (AUTO) 0.4 X10'3 (0-0.9); EOSINOPHILS % (AUTO) 2.4 % (0-6); HEMATOCRIT 27.9 % (35.0-45.0); LYMPHOCYTES # (AUTO) 1.8 X10'3 (1.1-4.8); LYMPHOCYTES % (AUTO) 10.7 % (21-51); MEAN CORPUSCULAR HEMOGLOBIN 28.3 PG (27.0-31.0); MEAN CORPUSCULAR HGB CONC 32.5 g/dL (33.0-36.5); MEAN CORPUSCULAR VOLUME 87.2 FL (78-98); MEAN PLATELET VOLUME 7.2 FL (7.4-10.4); MONOCYTES # (AUTO) 1.3 X10'3 (0-0.9); MONOCYTES % (AUTO) 7.9 % (2-12); NEUTROPHILS # (AUTO) 13.2 X10'3 (1.8-7.7); NEUTROPHILS % (AUTO) 78.6 % (42-75); PLATELET COUNT 483 X10'3 (140-440); RED CELL DISTRIBUTION WIDTH 17.6 % (11.5-14.5); WHITE BLOOD COUNT 16.8 X10'3 (4.5-11.0)
--- NOTE | 2020-07-31 06:33 | NUR ---
Problems reprioritized. Patient report given, questions answered & plan of care reviewed with Mallory CORNEJO.
[2020-07-31 06:49] LABS: ALANINE AMINOTRANSFERASE 39 U/L (12-78); ALBUMIN 1.6 G/DL (3.4-5.0); ALBUMIN/GLOBULIN RATIO 0.3 (1.1-1.5); ALKALINE PHOSPHATASE 312 IU/L (46-116); ANION GAP 10 (8-16); ASPARTATE AMINO TRANSFERASE 25 U/L (10-37); BILIRUBIN,TOTAL 0.6 MG/DL (0.1-1.0); BLOOD UREA NITROGEN 16 MG/DL (7-18); BUN/CREATININE RATIO 37.2 (6.6-38.0); CHLORIDE 103 MMOL/L (99-107); CREATININE 0.43 MG/DL (0.40-0.90); GLUCOSE 102 MG/DL (70-104); MAGNESIUM 1.5 MG/DL (1.5-2.4); POTASSIUM 3.1 MMOL/L (3.5-5.1); SODIUM 138 MMOL/L (135-145); TOTAL CARBON DIOXIDE 24.6 MMOL/L (24-32); TOTAL PROTEIN 7.5 G/DL (6.4-8.2); eGFR > 90 ML/MIN
[2020-07-31] MEDS: folic acid 1mg/0.2ml inj IV SCH (08:31)
[2020-07-31] MEDS: fluconazole/NS 400mg/200ml bag 200 ML IV SCH (08:32)
[2020-07-31] MEDS: thiamine inj. 100 MG in normal saline 100ml IV soln 100 ML IV SCH (08:32)
[2020-07-31] MEDS: famotidine/PF 10 mg/ml inj IV SCH (08:32)
[2020-07-31] MEDS: gabapentin 100mg capsule PEG SCH (08:33)
[2020-07-31] MEDS: methylnaltrexone br 12mg/0.6ml inj***SubQ only SQ SCH (08:33)
[2020-07-31] MEDS: lactobacillus rhamnosus 10,000 MMU CELLS/CAPSULE PEG SCH (08:33)
--- NOTE | 2020-07-31 09:59 | NUR ---
Report given to Sarah CORNEJO at [facility] in the [facility]. PT Taken with all things by DASIA to [facility].
--- NOTE | 2020-07-31 09:59 | NUR ---
patient left with EMS , patient hemodynamically stable, SBP 129/65, HR 78, o2sat 94, RR 23, baseline neuro status. patient clean, report given by primary nurse to receiving nurse.
== END 2020-07-31 09:40 | DRG 710 ==
LOC: ICU 2S 06:50
PROVIDERS: ADMIT Internal Medicine Critical Care Medicine; ATTEND Internal Medicine Critical Care Medicine
PROC: 02HV33Z Insertion of Infusion Device into Superior Vena Cava, Percutaneous Approach (ICD-10-PCS; principal; 2020-06-22)
PROC: 04HL33Z Insertion of Infusion Device into Left Femoral Artery, Percutaneous Approach (ICD-10-PCS; 2020-06-22)
PROC: 5A1955Z Respiratory Ventilation, Greater than 96 Consecutive Hours (ICD-10-PCS; 2020-06-22)
PROC: 0BH17EZ Insertion of Endotracheal Airway into Trachea, Via Natural or Artificial Opening (ICD-10-PCS; 2020-06-22)
PROC: 30233N1 Transfusion of Nonautologous Red Blood Cells into Peripheral Vein, Percutaneous Approach (ICD-10-PCS; 2020-06-27)
PROC: 0W9J0ZZ Drainage of Pelvic Cavity, Open Approach (ICD-10-PCS; 2020-06-30)
PROC: 0W993ZZ Drainage of Right Pleural Cavity, Percutaneous Approach (ICD-10-PCS; 2020-07-01)
DX: A41.51 Sepsis due to Escherichia coli [E. coli] (principal); G82.50 Quadriplegia, unspecified; J47.9 Bronchiectasis, uncomplicated; J90 Pleural effusion, not elsewhere classified; J96.20 Acute and chronic respiratory failure, unspecified whether with hypoxia or hypercapnia; K56.7 Ileus, unspecified; K63.0 Abscess of intestine; K65.1 Peritoneal abscess; N17.9 Acute kidney failure, unspecified; N31.9 Neuromuscular dysfunction of bladder, unspecified; N73.9 Female pelvic inflammatory disease, unspecified; R18.8 Other ascites; R65.21 Severe sepsis with septic shock; Z93.0 Tracheostomy status; Z99.11 Dependence on respirator [ventilator] status; R68.0 Hypothermia, not associated with low environmental temperature; Z20.828 Contact with and (suspected) exposure to other viral communicable diseases
CPT/HCPCS: 36415; 36430; 36573; 36600; 49406; 49465; 71045; 74018; 74176; 74177; 76604; 80053; 81001; 82150; 82570; 82803; 82810; 82945; 82948; 83010; 83605; 83615; 83690; 83735; 84100; 84132; 84134; 84156; 84157; 84300; 84478; 85007; 85008; 85018; 85025; 85027; 85045; 85610; 85730; 86885; 86900; 86901; 86920; 87040; 87070; 87075; 87076; 87077; 87081; 87088; 87102; 87185; 87186; 87207; 87635; 89051; 90732; 94002; 94003; 94640; 94760; 94799; 97110; 97162; 97530; 97535; A4618; A6402; A6446; A7000; G0378; J0131; J1450; J1644; J1650; J1940; J1956; J2212; J2370; J2405; J2543; J2765; J2997; J3010; J3411; J3475; J3480; J3490; J7030; J7040; J7120; P9016; P9045; P9047; Q2039; Q9963; Q9967

== ENCOUNTER 2020-08-19 10:01 | Outpatient (CLI) | payer MEDICAID ==
[~2020-08-19 10:01] MED LIST: ACET160O2 PEG; ALBU18HF2 IH; ATRIN IH; BACL-11 PO; CHLO118M PO; CYCL-1 PO; ENOX40DI11 SUBCUT; FAMO20TA8 PO; FENT1PAT10 TD; FOLI0.4T14 PO; GABA-530 PO; HYDR-3964 PO; LACT1CAP26 PEG; MELA1TAB28 PO; METH12DI SQ; METO5VIA IV; MIDO5TAB4 PO; MULT-687 PO; MYC15CR TOP; PIPE4.5F6 IV; SCOP1PAT11 TD; THIA50TA10 PO; [UNRECOGNIZED DRUG - CODE] IV
== END 2020-08-19 23:59 | disposition home or self-care (01) ==
LOC: 64 CT 10:01
PROVIDERS: ATTEND Internal Medicine
DX: S11.90XA Unspecified open wound of unspecified part of neck, initial encounter (principal); M96.1 Postlaminectomy syndrome, not elsewhere classified; X58.XXXA Exposure to other specified factors, initial encounter; Y93.89 Activity, other specified; Y92.89 Other specified places as the place of occurrence of the external cause; Y99.8 Other external cause status
CPT/HCPCS: 72125